=== PATIENT | female | born 1955 | race Caucasian/White ===

== ENCOUNTER 2018-09-21 10:11 | Day surgery (SDC) | payer OTHER ==
[2018-09-20 18:09] VITALS: BMI 33.0
--- NOTE | 2018-09-21 09:44 | HP ---
History & Physical Update - History History: No Change - Physical Physical: No Change - Assessment Assessment: No Change - Plan Plan: No Change (Left parotid mass/ tumor , for left parotidectomy, facial nerve monitoring, and dissection/)
--- NOTE | 2018-09-21 09:50 | HP ---
Satellite [facility] - Chief Complaint Chief Complaint: Left parotid mass for over one year. History Source: Patient Limitations to Obtaining History: No Limitations - Past Medical History Allergies/Adverse Reactions: Allergies Allergy/AdvReac Type Severity Reaction Status Date / Time aspirin Allergy Severe Verified 09/20/18 18:10 ketorolac [From Toradol] Allergy Severe Verified 09/20/18 18:11 - Current Medications Current Medications: Home Medications Medication Instructions Recorded Atorvastatin Ca [Lipitor] 40 mg PO DAILY 09/20/18 Cyclobenzaprine HCl 10 mg PO BID 09/20/18 Ezetimibe 10 mg PO DAILY 09/20/18 Folic Acid 1 mg PO DAILY 09/20/18 Levothyroxine Sodium 175 mcg PO DAILY 09/20/18 Losartan Potassium 100 mg PO DAILY 09/20/18 Lyrica 75 mg PO TID 09/20/18 Pantoprazole Sodium 40 mg PO DAILY 09/20/18 Prasugrel HCl 5 mg PO DAILY 09/20/18 Rosuvastatin Calcium 40 mg PO DAILY 09/20/18 Semaglutide [Ozempic] 5 mg SQ WEEKLY 09/20/18 Satellite Physical Exam - Physical Examination ENT: Other (2-3 cm. hard , mobile mass , in the region of the tail of the left parotid gland. CT scan shows a left protid mass , needle biopst suggestive of intraparotid ? lymph node. Patient wants it excised , has had it for about a year. Risks, of facial nerve injury , paralysis, gustatory sweating , salivary fistula and infection has been explained, many times. Consent obtained.) Satellite Impression/Plan - Impression/Plan Impression: Left parotid mass. Procedure : Left parotidectomy, dissection of the facial nerv. Operative Procedure: Left parotidectomy , dissection of the facial nerve. Date to be Performed: 09/21/18
[2018-09-21] MEDS ORDERED: ONDANSETRON 4 MG/2 ML VIAL IVPUSH PRN (11:23)
[2018-09-21] MEDS ORDERED: oxyCODONE HCL 5 MG TABLET PO PRN ×2 (11:23)
[2018-09-21] MEDS ORDERED: ceFAZolin SODIUM 1 GM VIAL IVPB ONE (12:40)
--- NOTE | 2018-09-21 15:26 | OP ---
Operative Note - Note: Operative Date: 09/21/18 Pre-Operative Diagnosis: Mass in left parotid gland , ? intraparotid lymph node. Operation: Left partial parotidectomy, dissection of the facial nerve , use of nerve monitor. Findings: Mass posterior to lower pole of the superficial lobe of the left parotid gland.. On frozen section , many lymphoid tissue.,? 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 Surgeon: Maria D Luis Railroad Operator: Felicity Moran Anesthesia: General Specimens Removed: Partial parotidectomy with mass posterior to laeft parotid gland. Estimated Blood Loss (mls): 10 Operative Report Dictated: Yes
[2018-09-21] MEDS ORDERED: ACETAMINOPHEN 1000 MG/100 ML VIAL (NON FORMULARY) IVPB PRN (15:58)
[2018-09-21] MEDS ORDERED: SEMAGLUTIDE 5 MG SQ SCH (16:00)
--- NOTE | 2018-09-21 16:09 | SURG ---
Surgery [employer] Note [employer]: Felicity Moran PA-C Date of Service: 09/21/18 Diagnosis: Mass in left parotid gland , ? intraparotid lymph node. Procedure: Left partial parotidectomy, dissection of the facial nerve , use of nerve monitor. I was present for the entirety of the operative procedure. For further detail, please refer to operative report. Visit type - Case Type Case Type: Scheduled - Emergency Emergency Visit: No - New patient This patient is new to me today: Yes Date on this admission: 09/21/18
[2018-09-21] MEDS: INSULIN SLIDING SCALE (NOVOLOG) 1 VIAL SQ SCH (19:15)
[2018-09-21] MEDS: LACTATED RINGERS SOLUTION 1,000 ML IV SCH (19:15)
[2018-09-21] MEDS: PREGABALIN 75 MG CAPSULE PO SCH (21:49)
[2018-09-21] MEDS: CYCLOBENZAPRINE HCL 10 MG TABLET (FP) PO SCH (21:49)
[2018-09-21] MEDS ORDERED: ROSUVASTATIN CA 40 MG TABLET PO SCH (22:00)
[2018-09-22] MEDS: LACTATED RINGERS SOLUTION 1,000 ML IV SCH (04:10)
[2018-09-22] MEDS ORDERED: LEVOTHYROXINE NA 125 MCG TABLET (FP) ONE (05:20)
[2018-09-22] MEDS ORDERED: LEVOTHYROXINE NA 50 MCG TABLET (FP) ONE (05:21)
[2018-09-22] MEDS: PREGABALIN 75 MG CAPSULE PO SCH ×2 (05:34→13:22)
[2018-09-22] MEDS: INSULIN SLIDING SCALE (NOVOLOG) 1 VIAL SQ SCH ×2 (06:01→11:23)
[2018-09-22] MEDS ORDERED: LEVOTHYROXINE 125 MCG, LEVOTHYROXINE 50 MCG PO SCH (07:00)
[2018-09-22 07:35] LABS: HEMATOCRIT 38.5 % (32.4-45.2); HEMOGLOBIN 12.7 GM/dL (10.7-15.3); MCH 31.3 pg (25.7-33.7); MCHC 33.1 g/dl (32.0-36.0); MEAN CELL VOLUME 94.6 fl (80-96); MEAN PLT VOLUME 10.5 fl (7.5-11.1); PLATELET COUNT 203 K/MM3 (134-434); RBC 4.07 M/mm3 (3.60-5.2); WHITE BLOOD COUNT 12.9 K/mm3 (4.0-10.0)
[2018-09-22] MEDS: oxyCODONE HCL 5 MG TABLET PO PRN ×2 (07:58→12:00)
[2018-09-22] MEDS: CYCLOBENZAPRINE HCL 10 MG TABLET (FP) PO SCH (09:31)
[2018-09-22] MEDS ORDERED: PANTOPRAZOLE 40 MG TABLET (FP) PO SCH (10:00)
[2018-09-22] MEDS ORDERED: LOSARTAN POTASSIUM 50 MG TABLET (FP) PO SCH (10:00)
[2018-09-22] MEDS ORDERED: FOLIC ACID 1 MG TABLET (FP) PO SCH (10:00)
[2018-09-22] MEDS ORDERED: LEVOTHYROXINE SODIUM 175 MCG PO SCH (10:00)
[2018-09-22] MEDS ORDERED: ATORVASTATIN CA 40 MG TABLET (FP) PO SCH (10:00)
[2018-09-22] MEDS ORDERED: PRASUGREL HCL 5 MG TAB PO SCH (10:00)
[2018-09-22] MEDS ORDERED: EZETIMIBE 10 MG TABLET (FP) PO SCH (10:00)
[2018-09-22 10:17] VITALS: BP 143/68; PULSE 77; TEMP 98
--- NOTE | 2018-09-22 11:26 | OP ---
DATE OF OPERATION: 09/21/2018 SEX: Female. AGE: [age] years old. 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 OPERATIVE PROCEDURE: Left partial parotidectomy, dissection of the facial nerve , use of nerve monitor, with frozen section. SURGEON: Gely Luis MD MANAGER CHILD: JAVID Jimenez ANESTHESIA: General anesthesia. OPERATIVE DESCRIPTION: This 63-year-old woman had a mass behind the angle of the mandible on the left side for about a couple of years. She was worked up, and needle biopsy of the lesion suggested this to be a lymph node. Patient also had a CAT scan that suggested that this mass was behind the inferior pole of the left parotid gland and beneath it. Patient insisted on getting the mass removed. Risks, benefits , and complications had been discussed with the patient. Consent obtained. Patient brought to the operating room. General anesthesia was administered. The Nerveana nerve monitoring device was used during the procedure. The appropriate leads were placed on the face. The left side of the face was painted and draped. Timeout was called. The patient was placed, with the back elevated in a 30-degree angle , neck extended, and the face turned towards the right. Incision was made starting in front of the tragus of the left ear, brought down around the pinna of the left ear, and then brought, anteriorly in a curvelinear fashion along the sternocleidomastoid muscle to about 2 fingerbreadths below the angle of the mandible and below the margin of the mandible. The incision was deepened through the skin and subcutaneous tissue. Posteriorly, the skin flap was raised beneath the deep fascia from the sternocleidomastoid muscle all the way anteriorly over the left parotid gland. All the tissues in front of the anterior border of the sternocleidomastoid muscle were removed. The cutaneous nerve, great auricular nerve, was identified and preserved all along its course and maintained intact. Dissection was then carried around the anterior border of the left sternocleidomastoid muscle wherein the facial nerve trunk was identified, superiorly, anterior to the posterior belly of the digastric muscle. There were , enlarged lobulated masses, what appeared to be enlarged lymph nodes, with some purulent material within it. This was behind, and deep to the posterior border of the left parotid gland. However, anteriorly, this remained attached to the parotid. Therefore, the facial nerve dissection was followed, preserving all the branches of the inferior trunk of the facial nerve. The cervical and the marginal mandibular branch of the facial nerve was followed all along its course and preserved throughout the procedure with appropriate response to stimulation of the nerve, using the nervana nerve monitor. On stimulation of the main trunk, the function of all the branches of the nerve was found to be intact. Hemostasis was achieved during the procedure using electrocautery, hemoclips as well, and the LigaSure. The specimen consisting of the superficial lobe of the inferior portion of the left parotid along, with the mass which was distinct from it, was sent to Pathology. On pathology, there were numerous lymphocytes with some nests of epithelial tissue which appeared benign. Further dissection was, therefore, not carried out. Hemostasis was satisfactory. A number 8 ELISEO drain was left into the wound, brought out through a stab wound in the posterior aspect of the posterior flap. The wound was irrigated. Hemostasis was satisfactory. The deep fascia and platysma were approximated with buried, interrupted 3-0 Vicryl sutures. Subcutaneous fat was also approximated with interrupted 3-0 Vicryl sutures and the skin approximated with continuous 4-0 Monocryl sutures in a running subcuticular fashion. The drain was anchored with a 2-0 Prolene. Estimated blood loss was less than 10 mL. Sponge count and instrument count were correct. Steri-Strips were applied across the incision, and bacitracin was applied over the edges. Patient tolerated the procedure well , was extubated, and facial nerve function was intact after extubation. Chanda [id number] MTDD
--- NOTE | 2018-09-22 13:41 | PN ---
Progress Note, Physician - Current Medication List Current Medications: Active Medications Acetaminophen (Ofirmev Injection -) 1,000 mg IVPB Q6H PRN PRN Reason: PAIN LEVEL 1-5 Last Admin: 09/21/18 16:00 Dose: 1,000 mg Cyclobenzaprine HCl (Flexeril -) 10 mg PO BID [facility] Last Admin: 09/22/18 09:31 Dose: 10 mg Ezetimibe (Zetia -) 10 mg PO DAILY [facility] Last Admin: 09/22/18 09:32 Dose: 10 mg Fentanyl (Sublimaze Injection -) 50 mcg IVPUSH [id number] PRN PRN Reason: PAIN-PACU ORDER X 4 DOSES ONLY Last Admin: 09/21/18 17:10 Dose: 50 mcg Folic Acid (Folic Acid -) 1 mg PO DAILY [facility] Last Admin: 09/22/18 09:31 Dose: 1 mg Lactated Ringer's (Lactated Ringers Solution) 1,000 mls @ 75 mls/hr IV ASDIR [facility] Last Admin: 09/22/18 04:10 Dose: 75 mls/hr Insulin Aspart (Novolog Vial Sliding Scale -) 1 vial SQ TIDAC [facility]; Protocol Last Admin: 09/22/18 11:23 Dose: Not Given Levothyroxine Sodium 125 mcg/ (Levothyroxine Sodium 50 mcg) 175 mcg PO DAILY@ 0700 [facility] Last Admin: 09/22/18 06:01 Dose: 175 mcg Losartan Potassium (Cozaar -) 100 mg PO DAILY [facility] Last Admin: 09/22/18 09:30 Dose: 100 mg Non-Formulary Medication (Semaglutide [Ozempic]) 5 mg SQ Q7D [facility] Ondansetron HCl (Zofran Injection) 4 mg IVPUSH Q6H PRN PRN Reason: NAUSEA AND/OR VOMITING Oxycodone HCl (Roxicodone -) 5 mg PO Q4H PRN PRN Reason: PAIN LEVEL 1-5 Oxycodone HCl (Roxicodone -) 10 mg PO Q4H PRN PRN Reason: PAIN LEVEL 6-10 Last Admin: 09/22/18 12:00 Dose: 10 mg Pantoprazole Sodium (Protonix -) 40 mg PO DAILY [facility] Last Admin: 09/22/18 09:36 Dose: 40 mg Prasugrel (Effient -) 5 mg PO DAILY [facility] Last Admin: 09/22/18 09:31 Dose: 5 mg Pregabalin (Lyrica -) 75 mg PO TID [facility] Last Admin: 09/22/18 13:22 Dose: 75 mg Rosuvastatin Calcium (Crestor -) 40 mg PO HS [facility] - Objective Vital Signs: Vital Signs Temperature 98 F 09/22/18 07:50 Pulse Rate 77 09/22/18 07:50 Respiratory Rate 20 09/22/18 07:50 Blood Pressure 143/68 09/22/18 07:50 O2 Sat by Pulse Oximetry (%) 95 09/21/18 22:22 Labs: CBC, BMP 09/22/18 06:00 Assessment/Plan Wound is clean, drain is removed. N No facial nerve paralysis, Able to purse her mouth.' Drain is removed. Follow up in the office.
--- NOTE | 2018-09-22 14:10 | PN ---
Progress Note, Physician Chief Complaint: s/p parotidectomy under general anesthesia History of Present Illness: post op day one - Current Medication List Current Medications: Active Medications Acetaminophen (Ofirmev Injection -) 1,000 mg IVPB Q6H PRN PRN Reason: PAIN LEVEL 1-5 Last Admin: 09/21/18 16:00 Dose: 1,000 mg Cyclobenzaprine HCl (Flexeril -) 10 mg PO BID [facility] Last Admin: 09/22/18 09:31 Dose: 10 mg Ezetimibe (Zetia -) 10 mg PO DAILY [facility] Last Admin: 09/22/18 09:32 Dose: 10 mg Fentanyl (Sublimaze Injection -) 50 mcg IVPUSH [id number] PRN PRN Reason: PAIN-PACU ORDER X 4 DOSES ONLY Last Admin: 09/21/18 17:10 Dose: 50 mcg Folic Acid (Folic Acid -) 1 mg PO DAILY [facility] Last Admin: 09/22/18 09:31 Dose: 1 mg Lactated Ringer's (Lactated Ringers Solution) 1,000 mls @ 75 mls/hr IV ASDIR [facility] Last Admin: 09/22/18 04:10 Dose: 75 mls/hr Insulin Aspart (Novolog Vial Sliding Scale -) 1 vial SQ TIDAC [facility]; Protocol Last Admin: 09/22/18 11:23 Dose: Not Given Levothyroxine Sodium 125 mcg/ (Levothyroxine Sodium 50 mcg) 175 mcg PO DAILY@ 0700 [facility] Last Admin: 09/22/18 06:01 Dose: 175 mcg Losartan Potassium (Cozaar -) 100 mg PO DAILY [facility] Last Admin: 09/22/18 09:30 Dose: 100 mg Non-Formulary Medication (Semaglutide [Ozempic]) 5 mg SQ Q7D [facility] Ondansetron HCl (Zofran Injection) 4 mg IVPUSH Q6H PRN PRN Reason: NAUSEA AND/OR VOMITING Oxycodone HCl (Roxicodone -) 5 mg PO Q4H PRN PRN Reason: PAIN LEVEL 1-5 Oxycodone HCl (Roxicodone -) 10 mg PO Q4H PRN PRN Reason: PAIN LEVEL 6-10 Last Admin: 09/22/18 12:00 Dose: 10 mg Pantoprazole Sodium (Protonix -) 40 mg PO DAILY [facility] Last Admin: 09/22/18 09:36 Dose: 40 mg Prasugrel (Effient -) 5 mg PO DAILY [facility] Last Admin: 09/22/18 09:31 Dose: 5 mg Pregabalin (Lyrica -) 75 mg PO TID [facility] Last Admin: 09/22/18 13:22 Dose: 75 mg Rosuvastatin Calcium (Crestor -) 40 mg PO [facility] - Objective Vital Signs: Vital Signs Temperature 98 F 09/22/18 07:50 Pulse Rate 77 09/22/18 07:50 Respiratory Rate 20 09/22/18 07:50 Blood Pressure 143/68 09/22/18 07:50 O2 Sat by Pulse Oximetry (%) 95 09/21/18 22:22 Constitutional: Yes: Well Nourished Cardiovascular: Yes: WNL Respiratory: Yes: WNL Gastrointestinal: Yes: WNL Labs: CBC, BMP 09/22/18 06:00 Assessment/Plan Patient pain controlled, no adverse anesthetic effects, dept of anesthesiology will sign off care at this time
[2018-09-22] MEDS ORDERED: ROSUVASTATIN CA 20 MG TABLET (FP) PO SCH (22:00)
--- NOTE | 2018-09-25 14:35 | PATH ---
Surgical Pathology Report Patient Name: KENYATTA SCHAFFER [facility]. Rec. #: [id number] /Age/Gender: 1955 (Age: 63) / F Account: [id number] Location: AMBULATORY SURG Taken: 09/21/2018 Received: 09/21/2018 Reported: 09/25/2018 Physicians: Gely Luis M.D. Specimen(s) Received LEFT INTRAPAROTID LYMPH NODE Clinical History Mass left parotid gland Intraoperative Consult Diagnosis Left intraparotid tissue, lymph node, touch prep: Lymphoepithelial lesion, favor benign. Nolberto Hunter M.D., 09/21/2018 Final Diagnosis INTRAPAROTID TISSUE,"LYMPH NODE", LEFT, PARTIAL PAROTIDECTOMY(FS): WARTHIN TUMOR. NEOPLASM MEASURES 1.2 CM (GROSS). NEOPLASM FOCALLY EXTENDS TO INKED SURGICAL MARGINS. Comment: Focal squamous metaplasia noted. No significant cytologic atypia identified. Findings discussed with Dr. Luis. Electronically Signed Amanda Agrawal M.D. Gross Description Received fresh labeled "left intraparotid tissue lymph node," is a 4.8 x 2.8 x 1.3 cm red-brown, unoriented portion of soft tissue. The specimen is inked blue and serially sectioned. Sectioning reveals a 1.2 x 1.0 x 0.6 cm red-brown nodule. Intraoperative consultation and touch preparation is performed on the nodule. The remaining tissue displays red-brown, lobulated parenchyma. The specimen is entirely and sequentially submitted in 7 cassettes as follows: [id number] nodule; 0-5-xctvpsyeb of specimen. /09/21/2018 [facility]09/21/2018
== END 2018-09-22 14:58 | disposition home or self-care (01) ==
LOC: JASUSAT 10:11 → J8W 17:48 → JASUSAT 09-22 14:58
PROVIDERS: ATTEND Specialist
PROC: 07B20ZX Excision of Left Neck Lymphatic, Open Approach, Diagnostic (ICD-10-PCS; 2018-09-21)
PROC: 0CB90ZZ Excision of Left Parotid Gland, Open Approach (ICD-10-PCS; principal; 2018-09-21 11:30)
DX: D11.0 Benign neoplasm of parotid gland (principal); I10 Essential (primary) hypertension; E11.9 Type 2 diabetes mellitus without complications; K21.9 Gastro-esophageal reflux disease without esophagitis; Z72.0 Tobacco use
CPT/HCPCS: 36415; 82962; 85027; 87070; 87205; 88307-TC; 88329; 94010; 94760; J0131

== ENCOUNTER 2018-12-06 19:11 | Inpatient (IN) | payer OTHER ==
[2018-12-06] MEDS ORDERED: ACETAMINOPHEN 1000 MG/100 ML VIAL (NON FORMULARY) IVPB ONE (19:49)
--- NOTE | 2018-12-06 19:49 | PDOC ---
Rapid Medical Evaluation Chief Complaint: Respiratory Time Seen by Provider: 12/06/18 19:40 Medical Evaluation: Allergies Allergy/AdvReac Type Severity Reaction Status Date / Time aspirin Allergy Severe Verified 09/21/18 11:11 ketorolac [From Toradol] Allergy Severe Verified 09/21/18 11:11 12/06/18 19:44 63 year old female with cough, fever/ chills, PE:patient alert ox3 . breath sounds clear PMHX: SLE, thyroidectomy, DM Today got vaccinated for shingles and pneumococcal. A: sepsis P: labs sepsis workup 12/06/18 19:49 Discharge Disposition - Diagnosis Sepsis Qualifiers: Sepsis type: sepsis due to unspecified organism Sepsis acute organ dysfunction status: unspecified Qualified Code(s): A41.9 - Sepsis, unspecified organism - Referrals - Patient Instructions - Post Discharge Activity
[2018-12-06] MEDS: SODIUM CHLORIDE 0.9% 1000 ML INFUS.BAG IV SCH (20:49)
--- NOTE | 2018-12-06 20:57 | PDOC ---
Attending Attestation - Resident Resident Name: Liya Gilbert - ED Attending Attestation I have performed the following: I have examined & evaluated the patient, The case was reviewed & discussed with the resident, I agree w/resident's findings & plan, Exceptions are as noted - HPI HPI: 12/06/18 20:54 63 F with h/o SLE, DM, HTN, presenting to ED with fevers and chills since last night. Pt states that she started rigoring last night. Daughter notes that she has also been confused. Pt denies any STILL/neck pain. Denies N/V/D/abdominal pain. Denies dysuria. Denies cough. Denies CP/SOB. - Physicial Exam PE: 12/06/18 20:55 GENERAL: Awake, alert, in no acute distress. HEAD: No signs of trauma EYES: PERRLA, EOMI, sclera anicteric, conjunctiva clear ENT: Auricles normal inspection, hearing grossly normal, nares patent, oropharynx clear without exudates. Moist mucosa NECK: Nontender, no stepoffs, Normal ROM, supple, no lymphadenopathy, JVD, or masses LUNGS: Breath sounds equal, clear to auscultation bilaterally. No wheezes, and no crackles HEART: Regular rate and rhythm, normal S1 and S2, no murmurs, rubs or gallops ABDOMEN: Soft, nontender, normoactive bowel sounds. No guarding, no rebound. No masses EXTREMITIES: Normal range of motion, no edema. No clubbing or cyanosis. No cords, erythema, or tenderness NEUROLOGICAL: Cranial nerves II through XII intact. 5/5 strength and sensation in all extremities, Normal speech, normal gait, normal cerebellar function SKIN: Warm, Dry, normal turgor, no rashes or lesions noted. - Critical Care Time Total Critical Care Time: 60 Critical Care Statement: The care of this patient involved high complexity decision making to prevent further life threatening deterioration of the patient 's condition and/or to evaluate & treat vital organ system(s) failure or risk of failure. - Medical Decision Making 12/06/18 20:56 63 F with fevers and confusion. Will evaluate for sepsis. Confusion likely 2/2 infection. Pt with no neuro deficits but will obtain head CT. - Labs, cultures - CXR, UA - CT head - IVF, tylenol
[2018-12-06] MEDS ORDERED: ACETAMINOPHEN INJECTION 100 ML IVPB ONE (21:03)
[2018-12-06 21:06] LABS: ARTERIAL BLD GAS O2 SATURATION 94.1 % (95-98); ARTERIAL BLOOD GAS BASE EXCESS -0.5 meq/l (-2-2); ARTERIAL BLOOD GAS PCO2 27.2 mmHg (35-45); ARTERIAL BLOOD GAS PO2 61.2 mmHg (80-100); CARBOXYHEMOGLOBIN 6.5 % (0-2)
--- NOTE | 2018-12-06 21:13 | PDOC ---
History of Present Illness - General Chief Complaint: Respiratory Stated Complaint: HALLUCINATIONS/FEVER Time Seen by Provider: 12/06/18 19:40 History Source: Patient Exam Limitations: No Limitations - History of Present Illness Initial Comments: Pt is a 63 yo F, with PMH of lupus, RA, HTN, HLD, L partoidectomy, L lung nodules removed (benign), and hypothyroidism (2/2 thyroidectomy), who is presenting with fever, AMS, and SOB since yesterday. Pt states she noticed she "felt warm" yesterday, and today had fever (Tmax 104), and some SOB. Pt is accompanied by her daughters, who state the pt has seem confused and off-balance , but deny any falls or LOC. Pt states since having her parotidectomy she often has trouble chewing and swallowing. Pt denies any headache, neck stiffness, vision changes, syncope, chest pain, palpitations, cough, nausea/vomiting, abdominal pain, urinary symptoms, diarrhea/constipation, or leg swelling. Allergies: NKDA PCP: Dr. Samuel Vidales Rheum: Dr. Luis Social: Pt smokes 1/2 ppd. Pt denies any alcohol or drug use. Pt denies any recent travel or sick contacts. Surgical: as above Family: no relevant history. 12/06/18 21:08 12/06/18 21:17 Past History - Travel Traveled outside of the country in the last 30 days: No Close contact w/someone who was outside of country & ill: No - Past Medical History Allergies/Adverse Reactions: Allergies Allergy/AdvReac Type Severity Reaction Status Date / Time aspirin Allergy Severe Verified 09/21/18 11:11 ketorolac [From Toradol] Allergy Severe Verified 09/21/18 11:11 Home Medications: Ambulatory Orders Atorvastatin Ca [Lipitor] 40 mg PO DAILY 09/20/18 Folic Acid 1 mg PO DAILY 09/20/18 Losartan Potassium 100 mg PO DAILY 09/20/18 Pantoprazole Sodium 40 mg PO DAILY 09/20/18 Prasugrel HCl 5 mg PO DAILY 09/20/18 Rosuvastatin Calcium 40 mg PO DAILY 09/20/18 Cholecalciferol (Vitamin D3) [Vitamin D3] 50,000 unit PO WEEKLY 12/07/18 Ezetimibe 10 mg PO DAILY 12/07/18 Levothyroxine Sodium 175 mcg PO DAILY 12/07/18 Pregabalin [Lyrica -] 75 mg PO TID 12/07/18 Anemia: No Asthma: No Cancer: No Cardiac Disorders: No CVA: No COPD: No CHF: No Dementia: No Diabetes: Yes GI Disorders: No Disorders: No HTN: Yes Hypercholesterolemia: No Liver Disease: No Seizures: No Thyroid Disease: No Other medical history: restless leg syndrome - Surgical History Abdominal Surgery: Yes (abd, hernia repair) Appendectomy: No Cardiac Surgery: No Cholecystectomy: Yes Lung Surgery: No Neurologic Surgery: No Orthopedic Surgery: No - Suicide/Smoking/Psychosocial Hx Smoking History: Current every day smoker Have you smoked in the past 12 months: Yes Number of Cigarettes Smoked Daily: 10 Information on smoking cessation initiated: No 'Breaking Loose' booklet given: 09/21/18 Hx Alcohol Use: No Drug/Substance Use Hx: No Substance Use Type: None Hx Substance Use Treatment: No Review of Systems - Review of Systems Able to Perform ROS?: Yes Is the patient limited Kyrgyz proficient: No Constitutional: Yes: Fever, Weight Stable. No: Chills, Diaphoresis, Loss of Appetite, Malaise, Weakness HEENTM: Yes: Difficulty Swallowing (since parotidectomy). No: Blurred Vision, Recent change in vision, Nose Congestion, Throat Pain, Throat Swelling Respiratory: Yes: Shortness of Breath, SOB at Rest. No: Cough, Orthopnea, Wheezing, Productive cough, Hemoptysis Cardiac (ROS): No: Chest Pain, Edema, Irregular Heart Rate, Lightheadedness, Palpitations, Syncope, Chest Tightness ABD/GI: No: Constipated, Diarrhea, Nausea, Poor Appetite, Poor Fluid Intake, Vomiting, Abdominal cramping : No: Burning, Dysuria, Frequency, Flank Pain, Pain, Urgency Musculoskeletal: No: Back Pain, Joint Pain, Muscle Pain, Muscle Weakness, Neck Pain Integumentary: No: Rash Psychiatric: No: Sleep Pattern Change, Change in Appetite Endocrine: No: Increased Urine, Change in Weight Hematologic/Lymphatic: No: Anemia, Blood Clots, Easy Bleeding, Easy Bruising All Other Systems: Reviewed and Negative *Physical Exam - Vital Signs Last Vital Signs Temp Pulse Resp BP Pulse Ox 103.8 F H 116 H 24 H 167/72 91 L 12/06/18 19:46 12/06/18 19:46 12/06/18 19:46 12/06/18 19:46 12/06/18 19:46 - Physical Exam Comments: Febrile, tachycardic, 91% on RA (improved to 95% on 2L NC). Pt appears SOB, but in no active distress. Obese body habitus. Pt alert, but oriented only to self (not pts baseline). Otherwise answers most questions appropriately. ink blender generally intact, muscular strength and sensation intact. Cerebellar exam WNL. No midline spinal tenderness, step-offs, or crepitus. Head normocephalic, atraumatic. Eyes PERRLA, EOMI. Oropharynx without erythema or exudates, no LAD b/l. No nasal congestion, hearing intact. Clear heart sounds, S1/S2, no JVD, b/l pedal edema, or heart murmur. Lung sounds diminished in L lobe/base. No retractions or crackles. No abdominal or CVA tenderness to palpation, no rebound, no guarding. Abdomen soft, non-distended, and with normoactive bowel sounds. Skin without jaundice or rash. 12/06/18 21:14 12/06/18 21:18 ED Treatment Course - LABORATORY CBC & Chemistry Diagram: 12/06/18 21:15 12/06/18 20:26 - ADDITIONAL ORDERS Additional order review: Laboratory Results 12/06/18 20:35 Anticoagulation Therapy No Result Required. O2 Delivery Device No Result Required. Oxygen Flow Rate No Result Required. Vent Mode No Result Required. Vent Rate No Result Required. Mechanical Rate No Result Required. Pressure Support Vent No Result Required. 12/06/18 20:35 RBC Cancelled MCV Cancelled MCHC Cancelled RDW Cancelled MPV Cancelled Neutrophils % Cancelled Lymphocytes % Cancelled Monocytes % Cancelled Eosinophils % Cancelled Basophils % Cancelled Medical Decision Making - Medical Decision Making Pt was seen at bedside, also will be seen by attending Dr. Muñiz. Pt presenting with AMS, fever, SOB. Will evaluate with sepsis w/u, chest x-ray, cultures ( blood and urine) and non-contrast CT head. Provided sepsis fluids and 1 g ofirmev for improvement of fever and hydration. Will continue to reassess pt and monitor for symptomatic improvement. ECG: sinus tachycardia, LAD, incomplete RBBB (HR 102, CT 144, QRS 92, QTc 437). No TWIs or significant ST segment changes. No prior ECG for comparison. 12/06/18 21:29 CBC: WBC 21 CMP generally WNL UA +blood, +protein, +bacteria Chest x-ray with b/l hazy infiltrates -- providing 1 g ceftriaxone and 500 mg IV azithromycin Pending CT head and chest. 12/06/18 21:[address] scan. Pending CT reads. Paged hospitalist team for admission. 12/06/18 23:32 Paged for admission x2 12/07/18 00:06 Pt endorsed to night team. 12/07/18 00:19 *DC/Admit/Observation/Transfer Diagnosis at time of Disposition: Hypoxia Leukocytosis Qualifiers: Leukocytosis type: unspecified Qualified Code(s): D72.829 - Elevated white blood cell count, unspecified Pneumonia Qualifiers: Pneumonia type: due to unspecified organism Laterality: bilateral Lung location : lower lobe of lung Qualified Code(s): J18.1 - Lobar pneumonia, unspecified organism - Discharge Dispostion Condition at time of disposition: Stable Decision to Admit order: Yes - Referrals Referrals: Samuel Vidales [Primary Care Provider] - - Patient Instructions - Post Discharge Activity
[2018-12-06 21:19] LABS: INR 1.05 (0.83-1.09); PROTHROMBIN TIME (PATIENT) 12.4 SEC (9.7-13.0)
[2018-12-06 21:21] LABS: ACTIVATED PTT 39.7 SECONDS (25.2-36.5)
[2018-12-06 21:22] LABS: EPI CELLS >36 /HPF (0-5/HPF); HYALINE CASTS 69 /lpf (0-8); URINE APPEARANCE CLOUDY; URINE BACTERIA 142.3 /hpf (NEGATIVE); URINE BILIRUBIN NEGATIVE (NEGATIVE); URINE COLOR DK YELLOW; URINE GLUCOSE (UA) NEGATIVE (NEGATIVE); URINE KETONE NEGATIVE (NEGATIVE); URINE LEUK ESTERASE NEGATIVE (NEGATIVE); URINE NITRITE NEGATIVE (NEGATIVE); URINE PROTEIN 4+ (NEGATIVE); URINE RBC 16 /hpf (0-4); URINE UROBILINOGEN 0.2 mg/dL (0.2-1.0)
[2018-12-06 21:25] LABS: BILIRUBIN,TOTAL 0.3 mg/dL (0.2-1); BLOOD UREA NITROGEN 15.5 mg/dL (7-18); CALCIUM 7.5 mg/dL (8.5-10.1); CREATININE 1.2 mg/dL (0.55-1.3); POTASSIUM 4.3 mmol/L (3.5-5.1); TOT PROT 6.1 g/dl (6.4-8.2)
[2018-12-06 21:31] LABS: BASO % 0.5 % (0-2.0); HEMOGLOBIN 14.1 GM/dL (10.7-15.3); LYMPH % 6.8 % (8-40); MCH 30.7 pg (25.7-33.7); MCHC 33.5 g/dl (32.0-36.0); MEAN CELL VOLUME 91.5 fl (80-96); MEAN PLT VOLUME 11.5 fl (7.5-11.1); MONO % 5.7 % (3.8-10.2); PLATELET COUNT 197 K/MM3 (134-434); RBC 4.59 M/mm3 (3.60-5.2); RDW 13.2 % (11.6-15.6); WHITE BLOOD COUNT 21.7 K/mm3 (4.0-10.0)
[2018-12-06] MEDS ORDERED: CEFTRIAXONE 1,000 MG in DEXTROSE 5%-WATER - 50 ML IVPB ONE (21:53)
[2018-12-06] MEDS ORDERED: AZITHROMYCIN IVPB 500 MG in DEXTROSE 5%-WATER - 250 ML IVPB ONE (21:53)
[2018-12-06] MEDS ORDERED: AZITHROMYCIN IVPB 500 MG/250 ML BAG IVPB ONE (22:06)
[2018-12-06] MEDS ORDERED: CEFTRIAXONE 1 GM/50 ML BAG ONE (22:06)
[2018-12-06 23:03] LABS: PLATELET ESTIMATE NORMAL
--- NOTE | 2018-12-07 00:57 | HP ---
Admitting History and Physical - Primary Care Physician PCP: Dr. Yoon - Admission Chief Complaint: cough, fever, chills History of Present Illness: 63 year old female with PMHx of RA, lupus, L partoidectomy (3 months ago), L lung nodules removed (benign), HTN, HLD, and hypothyroidism arrived to ED for fever, SOB, Chills since yesterday, had similar symptoms last Monday however resolved. Yesterday patient checked had temp of 103, and HR of 115 with SOB which brought her for further evaluation. As per ED notes patients daughter stated "pt has seem more confused and off-balance". Patient states since having her parotidectomy she often has trouble chewing and swallowing. No recent falls, LOC, headache, neck stiffness, vision changes, syncope, chest pain , palpitations, cough, nausea/vomiting, abdominal pain, urinary symptoms, diarrhea/constipation, or leg swelling. History Source: Patient Limitations to Obtaining History: No Limitations - Past Medical History Cardiovascular: Yes: HTN, Hyperlipdemia Pulmonary: Yes: Other (Left Lung nodule ( removed benign)) Rheumatology: Yes: Lupus, Rheumatoid Arthritis Endocrine: Yes: Hypothyroidism - Past Surgical History Additional Past Surgical History: Left partoidectomy, Left lung nodule removed (benign), thyroidectomy - Smoking History Smoking history: Current every day smoker Have you smoked in the past 12 months: Yes Aproximately how many cigarettes per day: 10 - Alcohol/Substance Use Hx Alcohol Use: No History of Substance Use: reports: None - Social History History of Recent Travel: No Home Medications - Allergies Allergies/Adverse Reactions: Allergies Allergy/AdvReac Type Severity Reaction Status Date / Time aspirin Allergy Severe Verified 09/21/18 11:11 ketorolac [From Toradol] Allergy Severe Verified 09/21/18 11:11 - Home Medications Home Medications: Ambulatory Orders Atorvastatin Ca [Lipitor] 40 mg PO DAILY 09/20/18 Folic Acid 1 mg PO DAILY 09/20/18 Losartan Potassium 100 mg PO DAILY 09/20/18 Pantoprazole Sodium 40 mg PO DAILY 09/20/18 Prasugrel HCl 5 mg PO DAILY 09/20/18 Rosuvastatin Calcium 40 mg PO DAILY 09/20/18 Cholecalciferol (Vitamin D3) [Vitamin D3] 50,000 unit PO WEEKLY 12/07/18 Ezetimibe 10 mg PO DAILY 09/13/19 Levothyroxine Sodium 175 mcg PO DAILY 12/07/18 Pregabalin [Lyrica -] 75 mg PO TID 12/07/18 Family Disease History - Family Disease History Family Disease History: Diabetes: Brother (Brain tumor, Breast Ca), CA: Brother Review of Systems - Review of Systems Constitutional: reports: Chills, Fever Eyes: reports: No Symptoms HENT: reports: Difficult Swallowing Neck: reports: No Symptoms Cardiovascular: reports: No Symptoms Respiratory: reports: SOB Gastrointestinal: reports: No Symptoms Genitourinary: reports: No Symptoms Musculoskeletal: reports: No Symptoms Integumentary: reports: No Symptoms Endocrine: reports: No Symptoms Hematology/Lymphatic: reports: No Symptoms Psychiatric: reports: No Symptoms Physical Examination Vital Signs: Vital Signs Temperature 103.8 F H 12/06/18 19:46 Pulse Rate 116 H 12/06/18 19:46 Respiratory Rate 24 H 12/06/18 19:46 Blood Pressure 167/72 12/06/18 19:46 O2 Sat by Pulse Oximetry (%) 91 L 12/06/18 19:46 Constitutional: Yes: Mild Distress, Obese Eyes: Yes: Conjunctiva Clear, EOM Intact HENT: Yes: Atraumatic, Normocephalic Neck: Yes: Supple, Trachea Midline Cardiovascular: Yes: Regular Rate and Rhythm Respiratory: Yes: Regular, CTA Bilaterally, Rales Gastrointestinal: Yes: Normal Bowel Sounds, Soft Musculoskeletal: Yes: WNL Extremities: Yes: WNL Edema: LUE: Trace, RUE: Trace Peripheral Pulses WNL: Yes Integumentary: Yes: WNL Neurological: Yes: Alert, Oriented Labs: CBC, BMP 12/06/18 21:15 12/06/18 20:26 Imaging - Results Cat Scan: Report Reviewed (CT head: negative CT chest : b/l lung nodule 1 cm left lobe, b/l lung consoliation) EKG: Report Reviewed (ECG: sinus tachycardia, no s/t changes) Problem List - Problems (1) Sepsis Code(s): A41.9 - SEPSIS, UNSPECIFIED ORGANISM (2) Pneumonia Code(s): J18.9 - PNEUMONIA, UNSPECIFIED ORGANISM Qualifiers: Pneumonia type: due to unspecified organism Laterality: bilateral Lung location: lower lobe of lung Qualified Code(s): J18.1 - Lobar pneumonia, unspecified organism (3) Rheumatoid arthritis Code(s): M06.9 - RHEUMATOID ARTHRITIS, UNSPECIFIED (4) Lupus (systemic lupus erythematosus) Code(s): M32.9 - SYSTEMIC LUPUS ERYTHEMATOSUS, UNSPECIFIED (5) HTN (hypertension) Code(s): I10 - ESSENTIAL (PRIMARY) HYPERTENSION (6) HLD (hyperlipidemia) Code(s): E78.5 - HYPERLIPIDEMIA, UNSPECIFIED (7) Hypothyroid Code(s): E03.9 - HYPOTHYROIDISM, UNSPECIFIED (8) Restless leg syndrome Code(s): G25.81 - RESTLESS LEGS SYNDROME (9) GERD (gastroesophageal reflux disease) Code(s): K21.9 - GASTRO-ESOPHAGEAL REFLUX DISEASE WITHOUT ESOPHAGITIS (10) H/O parotidectomy Code(s): Z90.49 - ACQUIRED ABSENCE OF OTHER SPECIFIED PARTS OF DIGESTIVE TRACT Assessment/Plan 63 year old female with PMHx of RA, lupus, L partoidectomy (3 months ago), L lung nodules removed (benign), HTN, HLD, GERD, restless leg syndrome and hypothyroidism arrived to ED for fever, SOB, Chills since yesterday, had similar symptoms last Monday however resolved. Yesterday patient checked had temp of 103, and HR of 115 with SOB which brought her for further evaluation. # Sepsis 2/2 pneumonia CXR: b/l infiltrate Ct chest: b/l lung nodule, 1 cm left lobe/ b/l lung consolidation EKG: ECG: sinus tachycardia, LAD, incomplete RBBB, No significant ST segment changes. UA +blood, +protein, +bacteria CBC: WBC 21 in Ed: given 1L NS, x1 ofirmev, given ceftriaxone and azithromycin x1 - continue with rocephin and azithromycin - continue with nebs - o2 via NC -tylenol q 4 prn -follow up ID in AM # HTN/ HLD s/p L partoidectomy ( 3 months ago ) -Atorvastatin Ca 40 mg PO DAILY - Losartan Potassium 100 mg PO DAILY - Rosuvastatin Calcium 40 mg PO DAILY - Ezetimibe 10 mg PO DAILY - follow up lipids - Prasugrel HCl 5 mg PO DAILY # GERD - Pantoprazole Sodium 40 mg PO DAILY #hypothrodism - Levothyroxine Sodium 175 mcg PO DAILY # Restless leg syndrome - Pregabalin 75 mg PO TID Visit type - Emergency Visit Emergency Visit: Yes Care time: The patient presented to the Emergency Department on the above date and was hospitalized for further evaluation of their emergent condition. - New Patient This patient is new to me today: Yes Date on this admission: 12/07/18 - Critical Care Critical Care patient: No
[2018-12-07] MEDS ORDERED: PATIENT'S OWN MEDICATION (NON-FORMULARY) (Cholecalciferol (Vitamin D3) [Vitamin D3] 50,000 PO SCH (01:30)
[2018-12-07] MEDS ORDERED: IPRATROPIUM BR 0.02% 0.5 MG/2.5 ML VIAL.NEB. NEB PRN ×2 (01:31→01:40)
[2018-12-07] MEDS ORDERED: ALBUTEROL SO4 0.083% IH SOL 2.5 MG/3 ML VIAL.NEB. NEB PRN (01:31)
[2018-12-07] MEDS ORDERED: PREGABALIN 50 MG CAPSULE ONE ×2 (05:42→21:11)
[2018-12-07] MEDS ORDERED: PREGABALIN 25 MG CAPSULE ONE ×2 (05:42→21:11)
[2018-12-07] MEDS ORDERED: PREGABALIN 75 MG CAPSULE PO SCH (06:00)
[2018-12-07] MEDS ORDERED: ACETAMINOPHEN 325 MG TABLET (FP) ONE (06:55)
[2018-12-07] MEDS: PREGABALIN 50 MG, PREGABALIN 25 MG PO SCH ×3 (07:00→22:19)
[2018-12-07] MEDS: ACETAMINOPHEN 325 MG TABLET (FP) PO PRN ×2 (07:00→23:48)
[2018-12-07] MEDS: LEVOTHYROXINE 125 MCG, LEVOTHYROXINE 50 MCG PO SCH (07:00)
[2018-12-07] MEDS ORDERED: CEFTRIAXONE 1 GM/50 ML BAG ONE ×2 (08:15→09:57)
[2018-12-07] MEDS ORDERED: AZITHROMYCIN IVPB 0 MG/0 ML BAG IVPB ONE (08:15)
[2018-12-07] MEDS: LOSARTAN POTASSIUM 50 MG TABLET (FP) PO SCH (09:07)
[2018-12-07] MEDS: EZETIMIBE 10 MG TABLET (FP) PO SCH (09:08)
[2018-12-07] MEDS: PANTOPRAZOLE 40 MG TABLET (FP) PO SCH (09:08)
[2018-12-07] MEDS: HEPARIN NA (PORCINE) 5,000 UNITS/ML 1ML VIAL SQ SCH ×2 (09:08→22:19)
[2018-12-07] MEDS: PRASUGREL HCL 5 MG TAB PO SCH (09:08)
[2018-12-07 09:43] LABS: HEMATOCRIT 36.2 % (32.4-45.2); HEMOGLOBIN 12.1 GM/dL (10.7-15.3); MCH 30.7 pg (25.7-33.7); MCHC 33.5 g/dl (32.0-36.0); MEAN CELL VOLUME 91.6 fl (80-96); MEAN PLT VOLUME 11.2 fl (7.5-11.1); PLATELET COUNT 163 K/MM3 (134-434); RBC 3.95 M/mm3 (3.60-5.2); RDW 13.3 % (11.6-15.6); WHITE BLOOD COUNT 12.4 K/mm3 (4.0-10.0)
[2018-12-07] MEDS ORDERED: CEFTRIAXONE 1 GM in DEXTROSE 5%-WATER - 50 ML IVPB ONE (09:46)
[2018-12-07 09:50] LABS: CHOLESTEROL 179 mg/dL (50-200); HDL CHOLESTEROL 67 mg/dL (40-60); TRIGLYCERIDES 98 mg/dL (0-150)
[2018-12-07 09:51] LABS: ALBUMIN 1.7 g/dl (3.4-5.0); BILIRUBIN,TOTAL 0.2 mg/dL (0.2-1); BLOOD UREA NITROGEN 14.6 mg/dL (7-18); CREATININE 1.1 mg/dL (0.55-1.3); POTASSIUM 3.7 mmol/L (3.5-5.1); TOT PROT 5.2 g/dl (6.4-8.2)
--- NOTE | 2018-12-07 09:55 | PN ---
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) followed by dr bridges admitted with fever vomiting on reports intermittent fevers with chills for last 3 weeks- off and on took aleve - didnot seek care no nausea, no abdominal pain no cough no diarrhea no dysuria went to [facility] yesterday am and had pneumonia and shingles vaccine later that day became confused and had fevers and chills and came to Ed no travel now alert and oriented fever to 103.[address] with increased patchy bilateral infiltrates, stable bibasilar pulmonary nodules (2018) and mediastinal adenopathy no cough no hemoptysis fever/abnormal chest ct s/p vaccinations yesterday-shingrix /pneumovax? history pulmonary nodule history of lupus/RA no immunosuppressive medications continue rocephin/zithromax for CAP and atypical pneumonia ?role of RA and Lupus in lung findings blood cultures legionella urinary antigen esr/crp anca quantiferon gold pulmonary evaluation alert and afebrile today Problem List - Problems (1) Fever Code(s): R50.9 - FEVER, UNSPECIFIED (2) Pneumonia Code(s): J18.9 - PNEUMONIA, UNSPECIFIED ORGANISM Qualifiers: Pneumonia type: due to unspecified organism Laterality: bilateral Lung location: lower lobe of lung Qualified Code(s): J18.1 - Lobar pneumonia, unspecified organism (3) Abnormal chest CT Code(s): R93.89 - ABNORMAL FINDINGS ON DX IMAGING OF OTH BODY STRUCTURES (4) Lupus (systemic lupus erythematosus) Code(s): M32.9 - SYSTEMIC LUPUS ERYTHEMATOSUS, UNSPECIFIED (5) Rheumatoid arthritis Code(s): M06.9 - RHEUMATOID ARTHRITIS, UNSPECIFIED
[2018-12-07] MEDS ORDERED: AZITHROMYCIN IVPB 500 MG/250 ML BAG IVPB ONE (09:56)
[2018-12-07 09:57] LABS: CALCIUM 6.9 mg/dL (8.5-10.1)
[2018-12-07] MEDS ORDERED: CEFTRIAXONE 1 GM in DEXTROSE 5%-WATER - 50 ML IVPB SCH (10:00)
[2018-12-07] MEDS ORDERED: PATIENT'S OWN MEDICATION (NON-FORMULARY) (Levothyroxine Sodium [Levothyroxine Sodium] 175 PO SCH (10:00)
[2018-12-07] MEDS ORDERED: PATIENT'S OWN MEDICATION (NON-FORMULARY) (Losartan Potassium [Losartan Potassium] 100 MG) PO SCH (10:00)
[2018-12-07] MEDS: AZITHROMYCIN IVPB 500 MG in DEXTROSE 5%-WATER - 250 ML IVPB SCH (10:57)
--- NOTE | 2018-12-07 12:07 | PN ---
Progress Note, Physician Chief Complaint: awake family bedside sob/on 02 tn events and notes reviewed - Current Medication List Current Medications: Active Medications Acetaminophen (Tylenol -) 650 mg PO Q4H PRN PRN Reason: PAIN OR FEVER Last Admin: 12/07/18 07:00 Dose: 650 mg Albuterol Sulfate (Ventolin 0.083% Nebulizer Soln -) 1 amp NEB RQID PRN PRN Reason: SHORT OF BREATH/WHEEZING Ezetimibe (Zetia -) 10 mg PO DAILY MATTHEW Last Admin: 12/07/18 09:08 Dose: 10 mg Heparin Sodium (Porcine) (Heparin -) 5,000 unit SQ BID MATTHEW Last Admin: 12/07/18 09:08 Dose: 5,000 unit Azithromycin 500 mg/ Dextrose 250 mls @ 250 mls/hr IVPB DAILY MATTHEW Last Admin: 12/07/18 10:57 Dose: 250 mls/hr Ceftriaxone Sodium 2 gm/ (Dextrose) 100 mls @ 200 mls/hr IVPB DAILY [facility]; Protocol Ipratropium [place] (Atrovent 0.02% Nebulizer -) 1 amp NEB QIDR PRN PRN Reason: WHEEZING Levothyroxine Sodium 125 mcg/ (Levothyroxine Sodium 50 mcg) 175 mcg PO ACBK MATTHEW Last Admin: 12/07/18 07:00 Dose: 175 mcg Losartan Potassium (Cozaar -) 100 mg PO DAILY [facility] Last Admin: 12/07/18 09:07 Dose: 100 mg Non-Formulary Medication (Cholecalciferol (Vitamin D3) [Vitamin D3]) 50,000 unit PO WEEKLY [facility] Pantoprazole Sodium (Protonix -) 40 mg PO DAILY [facility] Last Admin: 12/07/18 09:08 Dose: 40 mg Prasugrel (Effient -) 5 mg PO DAILY [facility] Last Admin: 12/07/18 09:08 Dose: 5 mg Pregabalin 50 mg/ Pregabalin (25 mg) 75 mg PO TID [facility] Last Admin: 12/07/18 07:00 Dose: 75 mg Rosuvastatin Calcium (Crestor -) 40 mg PO HS [facility] Sodium Chloride (Normal Saline -) 1,905 ml 30 ml/kg (1905 ml) IV ONCE [facility] Last Admin: 12/06/18 20:49 Dose: 1,905 ml - Objective Vital Signs: Vital Signs Temperature 98.7 F 12/07/18 07:00 Pulse Rate 74 12/07/18 07:00 Respiratory Rate 16 12/07/18 07:00 Blood Pressure 111/65 12/07/18 07:00 O2 Sat by Pulse Oximetry (%) 100 12/07/18 07:31 Constitutional: Yes: Mild Distress Cardiovascular: Yes: WNL Respiratory: Yes: Cough, Diminished, On Nasal O2 Gastrointestinal: Yes: Soft Genitourinary: Yes: WNL Musculoskeletal: Yes: Muscle Weakness Extremities: Yes: WNL Edema: No Peripheral Pulses WNL: Yes Integumentary: Yes: WNL Wound/Incision: Yes: Clean/Dry Neurological: Yes: WNL ...Motor Strength: WNL Psychiatric: Yes: WNL Labs: CBC, BMP 12/07/18 09:00 12/07/18 09:00 INR, PTT INR 1.05 (0.83-1.09) 12/06/18 20:35 Problem List - Problems (1) Abnormal chest CT Code(s): R93.89 - ABNORMAL FINDINGS ON DX IMAGING OF OTH BODY STRUCTURES (2) Fever Code(s): R50.9 - FEVER, UNSPECIFIED (3) GERD (gastroesophageal reflux disease) Code(s): K21.9 - GASTRO-ESOPHAGEAL REFLUX DISEASE WITHOUT ESOPHAGITIS (4) H/O parotidectomy Code(s): Z90.49 - ACQUIRED ABSENCE OF OTHER SPECIFIED PARTS OF DIGESTIVE TRACT (5) HLD (hyperlipidemia) Code(s): E78.5 - HYPERLIPIDEMIA, UNSPECIFIED (6) HTN (hypertension) Code(s): I10 - ESSENTIAL (PRIMARY) HYPERTENSION (7) Lupus (systemic lupus erythematosus) Code(s): M32.9 - SYSTEMIC LUPUS ERYTHEMATOSUS, UNSPECIFIED (8) Rheumatoid arthritis Code(s): M06.9 - RHEUMATOID ARTHRITIS, UNSPECIFIED Assessment/Plan nebs q6hrs 02 support iv abx ceftriaxone/azithromycin oob to chair pulm/rheumatology eval echo pending dvt prophylaxis proteinurea on losartan nephrology eval renal sono
--- NOTE | 2018-12-07 13:13 | CONS ---
DATE OF CONSULTATION: DATE OF DICTATION: 12/07/2018 REQUESTING PHYSICIAN: Abdi Yoon M.D. DICTATED BY: Betsy Fleming M.D. HISTORY OF PRESENT ILLNESS: This is a 63-year-old woman with a past medical history of lupus and rheumatoid arthritis. She has a history of as well of hypertension and restless leg syndrome, was followed by Dr. Vidales as an outpatient. She reports intermittent fever and chills for 3 weeks. She has been taking Advil. The fever has been happening occasionally, so she did not seek any medical care. Yesterday, she went to [facility] and had a pneumonia shot and a shingles shot. Following this, she went with her daughter to her daughter's gynecology appointment and while she was there, she started feeling bad and having shaking again. She went home and that evening developed fever and chills and her family brought her to the emergency room. She was apparently confused last night and was on arrival to the ER where she had fever of 103.8. She is currently awake and alert and has no other symptoms. She denies any history of cough. She had one day on of vomiting. She has not vomited since. She has had no diarrhea. She has no abdominal pain. She has no chest pain and otherwise feels well. There is no history of any travel. She has had no sick contacts and she is not on any immunosuppressive agents. PAST MEDICAL HISTORY: Her past medical history is notable for lupus that she states was diagnosed around 1999. She does not take any medicines. Rheumatoid arthritis, she does not take any medicines. She has a history of hypertension, restless leg syndrome, hyperlipidemia, hypothyroidism. PAST SURGICAL HISTORY: Her surgical history is notable for thyroidectomy. She had a nodule biopsied in her lung many years ago. 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 She has had hernia surgery, a cholecystectomy and she has had her ovaries removed. FAMILY HISTORY: The family history is notable for a brain tumor and breast cancer in a brother. SOCIAL HISTORY: She smokes 10 cigarettes a day, no history of alcohol or substance use. Currently her daughter lives with her. There are no sick contacts. She is originally from [place]. ALLERGIES: She is allergic to ASPIRIN, which gives her severe stomach cramps and KETOROLAC. MEDICATIONS: Her medicines at home include Atorvastatin, folic acid, losartan, pantoprazole, prasugrel, rosuvasatin, vitamin D, Zetia, levothyroxine and Lyrica. REVIEW OF SYSTEMS: Negative, except for the fevers and chills. PHYSICAL EXAMINATION: Vitals: On physical exam her maximum temperature was 103.8, current temperature is 98.7, pulse is 74, blood pressure 111/65, respiratory rate is 16. She is saturating 100% on 3 L. General: She is well appearing. HEENT: She is normocephalic. Her eyes are anicteric. Neck: Her neck is supple. Lungs: Lungs have diminished breath sounds at the bases. Heart: Heart is regular rate and rhythm. Abdomen: Soft, nontender. Extremities: Without edema. She has no adenopathy. LABORATORY DATA: White count on admission was 21.7, hemoglobin 14.1, platelets are 197. Chemistries: BUN is 15 and creatinine 1.2 with an AST of 44. Albumin is 2. Urinalysis has 4+ protein, 3+ blood and 10 white cells. She had a head CT done on admission given the confusion that showed mild volume loss with no acute intracranial pathology. She had a chest x-ray that showed prominent mediastinum with congestive infiltrative changes and she had a chest CT notable for diffuse ground glass opacification of the lung sanchez and the possibility of acute pneumonitis, stable bibasilar pulmonary nodules since September 13, mediastinal and bilateral hilar adenopathy. SUMMARY: In summary, this is a 63-year-old woman with fever, abnormal chest CT with no pulmonary symptoms, status post vaccinations yesterday. She got Shingrix, which in up to 25% of people, can give you fever, and she has a history of pulmonary nodules and a history of lupus and rheumatoid arthritis. She is not on any immunosuppressive treatments. RECOMMENDATIONS: I would continue the ceftriaxone and Zithromax for community-acquired pneumonia and atypical pneumonia. I am not sure of the role of RA and lupus in her lung findings. Her urinalysis is notable for protein and blood and is leukocyte esterase negative. I would follow up her blood cultures, check Legionella urinary antigen, sedimentation rate, CRP. I would get ANCA and QuantiFERON Gold. I would suggest Pulmonary evaluate her. Further recommendations to follow. BETSYChanda [id number] MTDDen
--- NOTE | 2018-12-07 14:03 | EKG ---
Test Reason : Blood Pressure : / mmHG Vent. Rate : 102 BPM Atrial Rate : 102 BPM P-R Int : 144 ms QRS Dur : 092 ms QT Int : 336 ms P-R-T Axes : 055 -44 035 degrees QTc Int : 437 ms SINUS TACHYCARDIA POSSIBLE LEFT ATRIAL ENLARGEMENT LEFT AXIS DEVIATION INCOMPLETE RIGHT BUNDLE BRANCH BLOCK ABNORMAL ECG Confirmed by RAY PRABHAKAR MD ([id number]) on 12/07/2018 2:03:21 PM Referred By: Confirmed By:RAY PRABHAKAR MD
--- NOTE | 2018-12-07 15:01 | ECHO ---
Name: KENYATTA SCHAFFER Exam:Adult Echocardiogram Study Date: 12/07/2018 01:42 PM Age: 63 yrs Reason For Study: r/o chf Height: 57 in Weight: 140 lb BSA: 1.5 m2 MMode/2D Measurements & Calculations RVDd: 1.9 cm Ao root diam: 2.9 cm IVSd: 0.76 cm LA dimension: 3.7 cm LVIDd: 5.3 cm ACS: 1.9 cm LVIDs: 3.2 cm LVPWd: 0.88 cm IVSs: 1.2 cm LVPWs: 1.3 cm EDV(Teich): 137.9 ml ESV(Teich): 41.6 ml Doppler Measurements & Calculations MV E max stanislav: 103.7 cm/sec Ao V2 max: 138.5 cm/sec MV A max stanislav: 76.3 cm/sec Ao max P.7 mmHg MV E/A: 1.4 Ao V2 mean: 91.1 cm/sec Ao mean P.8 mmHg Ao V2 VTI: 26.6 cm Med Peak E' Stanislav: 8.8 cm/sec Med E/e': 11.8 Lat Peak E' Stanislav: 8.2 cm/sec Lat E/e': 12.6 Left Ventricle The left ventricular size, thickness and function are normal. Ejection Fraction = 55-60%. The transmi tral spectral Doppler flow pattern is normal for age. Right Ventricle The right ventricle is normal in size and function. Atria Normal left and right atrial size and function. Mitral Valve The mitral valve is normal in structure and function. There is no mitral valve stenosis. There is tra ce mitral regurgitation. Tricuspid Valve The tricuspid valve is normal in structure and function. There is trace tricuspid regurgitation. Aortic Valve The aortic valve opens well. No hemodynamically significant valvular aortic stenosis. No aortic regur gitation is present. Pulmonic Valve The pulmonic valve is not well seen, but is grossly normal. There is no pulmonic valvular stenosis. T here is no pulmonic valvular regurgitation. Great Vessels The aortic root is normal size. Pericardium/Pleura There is no pericardial effusion. Interpretation Summary The left ventricular size, thickness and function are normal Ejection Fraction = 55-60%. The right ventricle is normal in size and function. No hemodynamically significant valvular aortic stenosis. There is no pericardial effusion. MD Gonzalez *Jennifer 12/07/2018 03:01 PM
--- NOTE | 2018-12-07 16:19 | PN ---
Progress Note (short form) - Note Progress Note: PULMONARY CONSULTATION DITATED12/07/18 IMP FEVER WORSENING DIFFUSE BILATERAL GROUND GLASS INFILTRATES LIKELY INFLAMMATORY , ? INFECTIOUS MEDIASTINAL,HILAR ADENOPATHY LIKELY REACTIVE INTERSTITIAL LUNG DISEASE SLE RA S/P THYROIDECTOMY S/P PARA-THYROIDECTOMY S/P L PAROTIDECTOMY H/O PULMONARY NODULES BENIGN SMOKER PLAN ABX PER ID CULTURES INHALED BRONCHODILATORS STEROIDS RHEUMATOLOGY EVALUATION F/U CHEST CT OUTPATIENT SEROLOGY KENYATTA,RF,C-ANCA,JOY LEVEL SMOKING CESSATION COUNSELED DR WEAVER Problem List - Problems (1) Abnormal chest CT Code(s): R93.89 - ABNORMAL FINDINGS ON DX IMAGING OF OTH BODY STRUCTURES (2) Fever Code(s): R50.9 - FEVER, UNSPECIFIED (3) GERD (gastroesophageal reflux disease) Code(s): K21.9 - GASTRO-ESOPHAGEAL REFLUX DISEASE WITHOUT ESOPHAGITIS (4) H/O parotidectomy Code(s): Z90.49 - ACQUIRED ABSENCE OF OTHER SPECIFIED PARTS OF DIGESTIVE TRACT (5) HLD (hyperlipidemia) Code(s): E78.5 - HYPERLIPIDEMIA, UNSPECIFIED (6) HTN (hypertension) Code(s): I10 - ESSENTIAL (PRIMARY) HYPERTENSION (7) Hypothyroid Code(s): E03.9 - HYPOTHYROIDISM, UNSPECIFIED (8) Lupus (systemic lupus erythematosus) Code(s): M32.9 - SYSTEMIC LUPUS ERYTHEMATOSUS, UNSPECIFIED (9) Pneumonia Code(s): J18.9 - PNEUMONIA, UNSPECIFIED ORGANISM Qualifiers: Pneumonia type: due to unspecified organism Laterality: bilateral Lung location: lower lobe of lung Qualified Code(s): J18.1 - Lobar pneumonia, unspecified organism (10) Rheumatoid arthritis Code(s): M06.9 - RHEUMATOID ARTHRITIS, UNSPECIFIED
[2018-12-07 17:39] VITALS: BMI 36.1
--- NOTE | 2018-12-07 17:52 | CONSULT ---
Consult Consult Specialty:: Rheumatology - History of Present Illness History of Present Illness: 63 y/o female with PMH of HTN, HLD, L partoidectomy, L lung nodules removed ( benign), and hypothyroidism (2/2 thyroidectomy), questionable history of lupus and s/p Shingrix vaccination one day prior to admission, Admitted with fever, and SOB. Questionable lupus. I saw the patient in my office from 04/23/02 to 06/19/09 and again in 2012.. 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 There were subepithelial, mesangial and rare subendothelial immune deposits .. Laboratory work-up revealed KENYATTA 1:80 and other serology was negative (anti-DNA ds, anti-Sm, anti-INSPECTOR TOOL, anti-cardiolipin antibodies, RPR and rheumatoid factor) and complement was normal. She had an episode of inflammatory arthritis in 2002 that resolved spontaneously. In 2003 she had elevation of liver enzymes a liver biopsy (07/16/03) was diagnosed with chronic hepatitis stage 2 with moderate activity. On 01/31/11 she had a wedge biopsy of the left lung. It was reports with severe respiratory bronchiolitis, smoking related interstitial fibrosis and benign intraparenchymal lymph nodes with reactive changes. There was no evidence of lymphoma. Work-up from 01/24/13 revealed KENYATTA 1:640 with a speckled pattern, and anti-DNA ds 6. Anti-Sm, anti-INSPECTOR TOOL, anti-mitochondrial and anti-smooth muscle antibodies were all negative. Complement was normal (C3: 147 and C4 31). Urinalysis leukocyte esterase 1+, protein trace and blood negative. At the present time the patient reports she has had SOB for a long period of time,slightly progressive. She cannot walk more than 1 block without stopping. She reports pain in shoulders, wrists and knees related to activity. She has not have follow up with a director index for a long period of time and she is not sanya followed by nephrology. In the present admission laboratory work-up revealed creatinine of 1.1, liver function tests were normal and urinalysis had protein 4+ and blood 2+. CT scan of the chest reported with diffuse groundglass opacification, most pronounced within the RUL. Stable pulmonary nodules since 2018. Mediastinal and bilateral hilar adenopathy. - History Source History Provided By: Patient, Medical Record - Past Medical History Cardio/Vascular: Yes: HTN, Hyperlipdemia Pulmonary: Yes: Other (Left Lung nodule ( removed benign)) Rheumatology: Yes: Lupus, Rheumatoid Arthritis Endocrine: Yes: Hypothyroidism - Alcohol/Substance Use Hx Alcohol Use: No History of Substance Use: reports: None - Smoking History Smoking history: Current every day smoker Have you smoked in the past 12 months: Yes Aproximately how many cigarettes per day: 10 - Social History History of Recent Travel: No Home Medications - Allergies Allergies/Adverse Reactions: Allergies Allergy/AdvReac Type Severity Reaction Status Date / Time aspirin Allergy Severe Verified 09/21/18 11:11 ketorolac [From Toradol] Allergy Severe Verified 09/21/18 11:11 - Home Medications Home Medications: Ambulatory Orders Atorvastatin Ca [Lipitor] 40 mg PO DAILY 09/20/18 Folic Acid 1 mg PO DAILY 09/20/18 Losartan Potassium 100 mg PO DAILY 09/20/18 Pantoprazole Sodium 40 mg PO DAILY 09/20/18 Prasugrel HCl 5 mg PO DAILY 09/20/18 Rosuvastatin Calcium 40 mg PO DAILY 09/20/18 Cholecalciferol (Vitamin D3) [Vitamin D3] 50,000 unit PO WEEKLY 12/07/18 Ezetimibe 10 mg PO DAILY 12/07/18 Levothyroxine Sodium 175 mcg PO DAILY 12/07/18 Pregabalin [Lyrica -] 75 mg PO TID 12/07/18 Family Disease History - Family Disease History Family Disease History: Diabetes: Brother (Brain tumor, Breast Ca), CA: Brother Review of Systems - Review of Systems Constitutional: reports: Malaise Eyes: reports: No Symptoms HENT: reports: No Symptoms Neck: reports: No Symptoms Cardiovascular: reports: Shortness of Breath Respiratory: reports: SOB Musculoskeletal: reports: Other (See HPI) Physical Exam Vital Signs: Vital Signs Temperature 98.1 F 12/07/18 17:08 Pulse Rate 80 12/07/18 17:08 Respiratory Rate 18 12/07/18 17:08 Blood Pressure 145/71 12/07/18 17:08 O2 Sat by Pulse Oximetry (%) 94 L 12/07/18 17:08 Constitutional: Yes: Mild Distress Eyes: Yes: WNL HENT: Yes: WNL Cardiovascular: Yes: WNL Respiratory: Yes: Other (Few crackles in LLL) Musculoskeletal: Yes: Other (Tenderness in both shoulders, mainly over the grater tuberosity on extension of the joint suggestive of rotator cuff tendonitis There was no tenderness or swelling in wrists or hands or stigmata of chronic arthritis. Both knees ere tender and swollen.) Labs: CBC, BMP 12/07/18 09:00 12/07/18 09:00 Problem List - Problems (1) Connective tissue disease Assessment/Plan: The patient does not have rheumatoid arthritis and is unlikely that she has lupus. She has interstitial lung disase, hispoty of membranous glomerulonephritis with positive immunofluoresence and hiostrory of autoimmune hepatitis. History of KENYATTA positive and anti-DNA positive on one occasion at low titer. Other serology and complement were normal. Based on the kidney biopsy it is unlikely that she has ANCA vasculitis. Etiology to be determined. Plan: I will requestt serology and complement. Code(s): M35.9 - SYSTEMIC INVOLVEMENT OF CONNECTIVE TISSUE, UNSPECIFIED (2) Rotator cuff tendonitis Assessment/Plan: Probable bilateral rotator cuff tendonitis. She does not have systemic inflammatory arthritis. Code(s): M75.80 - OTHER SHOULDER LESIONS, UNSPECIFIED SHOULDER (3) Osteoarthritis of knees, bilateral Assessment/Plan: Probable bilateral osteoarthritis,. Code(s): M17.0 - BILATERAL PRIMARY OSTEOARTHRITIS OF KNEE
--- NOTE | 2018-12-07 18:12 | CONS ---
DATE OF CONSULTATION: 12/07/2018 PULMONARY CONSULTATION REFERRING PHYSICIAN: Abdi Yoon M.D. HISTORY OF PRESENT ILLNESS: The patient is a 63-year-old female with past medical history of rheumatoid arthritis, lupus, history of left parotid endarterectomy 3 months ago, lung nodule removed benign, hypertension, hyperlipidemia status post thyroidectomy, parathyroidectomy ,hypothyroidism, admitted to [facility] with complaints of fever, chills, shortness of breath. Patient states she started developing chills and then the fevers for the past couple of weeks. She denied any chest pain, nausea, vomiting, diaphoresis. States she does not take any medication. Yesterday she started developing fevers and chills up to 103 at which time she presented to the emergency room. In the ER, she underwent a CT scan of the chest which reveals extensive bilateral infiltrates. She was evaluated by infectious disease and placed on antibiotic therapy. The patient has a cough which is nonproductive, denies any dyspnea on exertion of significance, any shortness of breath at rest. Denies hemoptysis, denies any weight loss or night sweats. She has a history of tobacco use and and is still smoking. There is no history of occupational exposure to chemicals or fumes. As stated before she has a history of SLE and rheumatoid and is going to be followed up by a drug safety specialist. PAST MEDICAL HISTORY: Again includes rheumatoid, lupus, left parotid endarterectomy, lung nodule, hypertension, hyperlipidemia, hypothyroidism, history of thyroidectomy. SOCIAL HISTORY: History of tobacco use. No occupational exposures. CURRENT MEDICATIONS: Include vitamin D, Tylenol, Cozaar, Zithromax, ceftriaxone , heparin, NicoDerm patch, albuterol, Zetia, Atrovent solution, normal saline, Crestor, Effient, Protonix, and Synthroid. PHYSICAL EXAMINATION: General: The patient is a well-developed, well-nourished female, currently awake, alert, in no acute distress. Vital Signs: O2 saturation is 97% on room air. Blood pressure 143/100, respiratory rate 18, temperature 98.1, T-max is 103.8. HEENT: Normocephalic, atraumatic. Neck: Supple. Heart: Regular S1, S2. Chest: Bibasilar crackles. Diminished breath sounds bilaterally. No wheezes or rhonchi. Abdomen: Soft, bowel sounds positive. Extremities: No cyanosis, edema. LABORATORY: WBC 12.4, initially was 21.7, hemoglobin 12.1, hematocrit 36.2, platelet count of 163,000. Blood gas: pH 7.50, pCO2 of 27, pO2 of 61, bicarbonate 21, saturation 94.1 on room air. BUN is 14.6, creatinine 1.6, calcium is 6.9. Troponin 0.07. Chest CT: Extensive bilateral ground glass infiltrates, mediastinal and hilar adenopathy. UA: 4+ protein, 3+ heme. IMPRESSION: 1. Fever, etiology to be determined. 2. Diffuse bilateral ground glass infiltrate, likely inflammatory, cannot rule out infectious process. 3. Interstitial lung disease. 4. Mediastinal hilar adenopathy again likely reactive. 5. Systemic lupus erythematosus. 6. Rheumatoid arthritis. 7. Status post thyroidectomy. 8. Status post left parathyroidectomy. 9. History of pulmonary nodules, status post resection, benign. 10. Smoker. PLAN: Antibiotics as per Infectious Disease. Obtain cultures. Inhaled bronchodilators. Supplemental O2. Steroids. Rheumatology evaluation. Obtain followup chest CT as outpatient. Obtain serology, KENYATTA, rheumatoid factor, cANCA , JOY level. Smoking cessation counseled. PACO WEAVER M.D. MARLENI/[id number] MTDD
[2018-12-07] MEDS ORDERED: ATORVASTATIN CA 40 MG TABLET (FP) PO SCH (22:00)
[2018-12-07] MEDS: ROSUVASTATIN CA 20 MG TABLET (FP) PO SCH (22:19)
[2018-12-07] MEDS: NICOTINE 21 MG/24 HOURS TOPICAL PATCH TD SCH (22:28)
[2018-12-07] MEDS: SODIUM CHLORIDE 0.9% 1000 ML INFUS.BAG IV SCH (22:28)
[2018-12-07] MEDS: methylPREDNISolone NA SUCC 40 MG/1 ML VIAL IVPUSH SCH (23:37)
[2018-12-07] MEDS: MELATONIN 5 MG TABLETS PO PRN (23:48)
[2018-12-08] MEDS: methylPREDNISolone NA SUCC 40 MG/1 ML VIAL IVPUSH SCH ×4 (04:10→17:24)
[2018-12-08] MEDS ORDERED: LEVOTHYROXINE NA 50 MCG TABLET (FP) ONE (05:46)
[2018-12-08] MEDS ORDERED: PREGABALIN 50 MG CAPSULE ONE ×3 (05:46→20:52)
[2018-12-08] MEDS ORDERED: LEVOTHYROXINE NA 125 MCG TABLET (FP) ONE (05:46)
[2018-12-08] MEDS ORDERED: PREGABALIN 25 MG CAPSULE ONE ×3 (05:46→20:53)
[2018-12-08] MEDS: PREGABALIN 50 MG, PREGABALIN 25 MG PO SCH ×3 (05:48→21:35)
[2018-12-08] MEDS: ACETAMINOPHEN 325 MG TABLET (FP) PO PRN ×2 (05:48→21:38)
[2018-12-08] MEDS: LEVOTHYROXINE 125 MCG, LEVOTHYROXINE 50 MCG PO SCH (06:00)
[2018-12-08] MEDS ORDERED: DEXTROSE 5%-WATER 100 ML IVPB ONE ×2 (10:21→11:48)
--- NOTE | 2018-12-08 10:36 | PN ---
Progress Note, Physician Chief Complaint: CAP History of Present Illness: NAD Breathing improved, denies SOB - Current Medication List Current Medications: Active Medications Acetaminophen (Tylenol -) 650 mg PO Q4H PRN PRN Reason: PAIN OR FEVER Last Admin: 12/08/18 05:48 Dose: 650 mg Albuterol Sulfate (Ventolin 0.083% Nebulizer Soln -) 1 amp NEB RQID PRN PRN Reason: SHORT OF BREATH/WHEEZING Ezetimibe (Zetia -) 10 mg PO DAILY [facility] Last Admin: 12/07/18 09:08 Dose: 10 mg Heparin Sodium (Porcine) (Heparin -) 5,000 unit SQ BID MATTHEW Last Admin: 12/07/18 22:19 Dose: 5,000 unit Azithromycin 500 mg/ Dextrose 250 mls @ 250 mls/hr IVPB DAILY [facility] Last Admin: 12/07/18 10:57 Dose: 250 mls/hr Ceftriaxone Sodium 2 gm/ (Dextrose) 100 mls @ 200 mls/hr IVPB DAILY [facility]; Protocol Ipratropium [place] (Atrovent 0.02% Nebulizer -) 1 amp NEB QIDR PRN PRN Reason: WHEEZING Levothyroxine Sodium 125 mcg/ (Levothyroxine Sodium 50 mcg) 175 mcg PO ACBK [facility] Last Admin: 12/08/18 06:00 Dose: 175 mcg Losartan Potassium (Cozaar -) 100 mg PO DAILY [facility] Last Admin: 12/07/18 09:07 Dose: 100 mg Melatonin (Melatonin) 5 mg PO HS PRN PRN Reason: INSOMNIA Last Admin: 12/07/18 23:48 Dose: 5 mg Methylprednisolone Sodium Succinate (Solu-Medrol -) 40 mg IVPUSH Q6H-IV [facility]THEW Last Admin: 12/08/18 04:10 Dose: 40 mg Nicotine (Nicoderm Patch -) 21 mg TD DAILY [facility] Last Admin: 12/07/18 22:28 Dose: Not Given Non-Formulary Medication (Cholecalciferol (Vitamin D3) [Vitamin D3]) 50,000 unit PO WEEKLY [facility] Pantoprazole Sodium (Protonix -) 40 mg PO DAILY [facility] Last Admin: 12/07/18 09:08 Dose: 40 mg Prasugrel (Effient -) 5 mg PO DAILY [facility] Last Admin: 12/07/18 09:08 Dose: 5 mg Pregabalin 50 mg/ Pregabalin (25 mg) 75 mg PO TID [facility] Last Admin: 12/08/18 05:48 Dose: 75 mg Rosuvastatin Calcium (Crestor -) 40 mg PO HS [facility] Last Admin: 12/07/18 22:19 Dose: 40 mg Sodium Chloride (Normal Saline -) 1,905 ml 30 ml/kg (1905 ml) IV ONCE [facility] Last Admin: 12/07/18 22:28 Dose: Not Given - Objective Vital Signs: Vital Signs Temperature 98.0 F 12/08/18 05:52 Pulse Rate 73 12/08/18 05:52 Respiratory Rate 20 12/08/18 05:52 Blood Pressure 125/66 12/08/18 05:52 O2 Sat by Pulse Oximetry (%) 98 12/07/18 21:00 Constitutional: Yes: Well Nourished, No Distress, Calm Cardiovascular: Yes: Regular Rate and Rhythm Respiratory: Yes: Regular, CTA Bilaterally Gastrointestinal: Yes: Normal Bowel Sounds, Soft Genitourinary: Yes: WNL Musculoskeletal: Yes: WNL Extremities: Yes: WNL Edema: No Peripheral Pulses WNL: Yes Neurological: Yes: Alert, Oriented Psychiatric: Yes: Alert, Oriented Labs: CBC, BMP 12/07/18 09:00 12/07/18 09:00 INR, PTT INR 1.05 (0.83-1.09) 12/06/18 20:35 Problem List - Problems (1) Connective tissue disease Assessment/Plan: -Seen by Rheumatology -workup in progress -Echo-normal LVEF at 55% Code(s): M35.9 - SYSTEMIC INVOLVEMENT OF CONNECTIVE TISSUE, UNSPECIFIED (2) Lupus (systemic lupus erythematosus) Assessment/Plan: -questionable as per Rheumatology -Seen by Rheumatology -ESR + CRP elevate -Work up in progress Code(s): M32.9 - SYSTEMIC LUPUS ERYTHEMATOSUS, UNSPECIFIED (3) Pneumonia Assessment/Plan: - Seen by Pulmonary -ID on baord -CXR + CAP -On IV rocephin+ Azithro -Medrol IVP Q6h-->decrease to medrol Q8H -Bronchodilators -Nasal O2 prn to keep Spo2>90% -Legionella Ag (-) -Pre and post ambulatory SpO2 Code(s): J18.9 - PNEUMONIA, UNSPECIFIED ORGANISM Qualifiers: Pneumonia type: due to unspecified organism Laterality: bilateral Lung location: lower lobe of lung Qualified Code(s): J18.1 - Lobar pneumonia, unspecified organism (4) Interstitial lung disease Assessment/Plan: -Seen by pulmonary and rheumatology -Chest:1. Diffuse groundglass opacification of the lung sanchez, most pronounced within the right upper lobe. The possibility of acute pneumonitis and/or a more chronic inflammatory/infectious process should be clinically considered. 2. Stable bibasilar pulmonary nodules since 09/13/2017. 3. Mediastinal and bilateral hilar lymphadenopathy. Clinical correlation and follow-up recommended. Please see above discussion. 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 Code(s): R80.9 - PROTEINURIA, UNSPECIFIED (6) Elevated troponin Assessment/Plan: -repeat trop today -denies chest pain -likely 2/2 to acute infection Code(s): R74.8 - ABNORMAL LEVELS OF OTHER SERUM ENZYMES Assessment/Plan dvt ppx GI ppx Self ambulatory
[2018-12-08] MEDS: CEFTRIAXONE 2 GM in DEXTROSE 5%-WATER 100 ML IVPB SCH (10:59)
[2018-12-08] MEDS: LOSARTAN POTASSIUM 50 MG TABLET (FP) PO SCH (11:00)
[2018-12-08] MEDS: NICOTINE 21 MG/24 HOURS TOPICAL PATCH TD SCH (11:00)
[2018-12-08] MEDS: HEPARIN NA (PORCINE) 5,000 UNITS/ML 1ML VIAL SQ SCH ×2 (11:01→21:36)
[2018-12-08] MEDS: PANTOPRAZOLE 40 MG TABLET (FP) PO SCH (11:01)
[2018-12-08] MEDS: PRASUGREL HCL 5 MG TAB PO SCH (11:02)
--- NOTE | 2018-12-08 11:04 | CONSULT ---
Consult - text type - Consultation Consultation Note: Renal coverage for Dr. Hudson This is a 63 year old woman with history of suspected RA, membranous nephropathy , possible Lupus (+ KENYATTA), hypothyroidism who presented from 2 week history of chills and 1 day of fever and admitted for suspected PNA. Pt was never on immunosupporessive medications for her membranous nephropathy. She was following with Dr. Oliver but has not seen him in some time. Denies any flank pain, gross hematuria or dysuria. No skin rash, facial rash. No joint pain. Making urine w/o difficultly. No recent NSAID use. PMhx: as above Allergies: ASA, ketorolac Family hx: NC Social Hx: No T/A/D ROS: as per HPI, all other pertinent ros negative Home Medications Medication Instructions Recorded Atorvastatin Ca [Lipitor] 40 mg PO DAILY 09/20/18 Folic Acid 1 mg PO DAILY 09/20/18 Losartan Potassium 100 mg PO DAILY 09/20/18 Pantoprazole Sodium 40 mg PO DAILY 09/20/18 Prasugrel HCl 5 mg PO DAILY 09/20/18 Rosuvastatin Calcium 40 mg PO DAILY 09/20/18 Acetaminophen/Diphenhydramine 2 tab PO HS 12/07/18 [Tylenol Pm Ex-Strength Caplet] Cholecalciferol (Vitamin D3) 50,000 unit PO WEEKLY 12/07/18 [Vitamin D3] Ezetimibe 10 mg PO DAILY 12/07/18 Levothyroxine Sodium 175 mcg PO DAILY 12/07/18 Pregabalin [Lyrica -] 75 mg PO TID 12/07/18 Vital Signs Temperature 98.0 F 12/08/18 05:52 Pulse Rate 73 12/08/18 05:52 Respiratory Rate 20 12/08/18 05:52 Blood Pressure 125/66 12/08/18 05:52 O2 Sat by Pulse Oximetry (%) 98 12/07/18 21:00 Intake & Output 12/05/18 12/06/18 12/07/18 12/08/18 23:59 23:59 23:59 23:59 Intake Total 200 100 Balance 200 100 Weight 63.503 kg 75.659 kg NAD awake and alert RRR, no M/R Course BS soft NT/ND no bladder distension trace LE edema CBC, BMP 12/07/18 09:00 12/07/18 09:00 Current Medications Acetaminophen (Tylenol -) 650 mg PO Q4H PRN PRN Reason: PAIN OR FEVER Last Admin: 12/08/18 05:48 Dose: 650 mg Albuterol Sulfate (Ventolin 0.083% Nebulizer Soln -) 1 amp NEB RQID PRN PRN Reason: SHORT OF BREATH/WHEEZING Ezetimibe (Zetia -) 10 mg PO DAILY [facility] Last Admin: 12/07/18 09:08 Dose: 10 mg Heparin Sodium (Porcine) (Heparin -) 5,000 unit SQ BID MATTHEW Last Admin: 12/08/18 11:01 Dose: 5,000 unit Azithromycin 500 mg/ Dextrose 250 mls @ 250 mls/hr IVPB DAILY [facility] Last Admin: 12/07/18 10:57 Dose: 250 mls/hr Ceftriaxone Sodium 2 gm/ (Dextrose) 100 mls @ 200 mls/hr IVPB DAILY [facility]; Protocol Last Admin: 12/08/18 10:59 Dose: 200 mls/hr Ipratropium [place] (Atrovent 0.02% Nebulizer -) 1 amp NEB QIDR PRN PRN Reason: WHEEZING Levothyroxine Sodium 125 mcg/ (Levothyroxine Sodium 50 mcg) 175 mcg PO ACBK [facility] Last Admin: 12/08/18 06:00 Dose: 175 mcg Losartan Potassium (Cozaar -) 100 mg PO DAILY [facility] Last Admin: 12/08/18 11:00 Dose: 100 mg Melatonin (Melatonin) 5 mg PO HS PRN PRN Reason: INSOMNIA Last Admin: 12/07/18 23:48 Dose: 5 mg Methylprednisolone Sodium Succinate (Solu-Medrol -) 40 mg IVPUSH Q8H-IV [facility] Nicotine (Nicoderm Patch -) 21 mg TD DAILY [facility] Last Admin: 12/08/18 11:00 Dose: 21 mg Non-Formulary Medication (Cholecalciferol (Vitamin D3) [Vitamin D3]) 50,000 unit PO WEEKLY [facility] Pantoprazole Sodium (Protonix -) 40 mg PO DAILY [facility] Last Admin: 12/08/18 11:01 Dose: 40 mg Prasugrel (Effient -) 5 mg PO DAILY [facility] Last Admin: 12/08/18 11:02 Dose: 5 mg Pregabalin 50 mg/ Pregabalin (25 mg) 75 mg PO TID [facility] Last Admin: 09/14/19 05:48 Dose: 75 mg Rosuvastatin Calcium (Crestor -) 40 mg PO HS [facility] Last Admin: 12/07/18 22:19 Dose: 40 mg Sodium Chloride (Normal Saline -) 1,905 ml 30 ml/kg (1905 ml) IV ONCE [facility] Last Admin: 12/07/18 22:28 Dose: Not Given .63 year old woman with history of suspected RA, membranous nephropathy, possible Lupus (+ KENYATTA), hypothyrodism who presented from 2 week history of chills and 1 day of fever and admitted for suspected PNA. 1. Nephrotic range proteinuria with hx of membrenous nephropathy 2. Possible history of SLE 3. PNA/Sepsis 4. Leukocytosis despite history of membranous nephropathy pt has relatively well preserved eGFR agree with serologic evaluation as ordered by Rheum no acute need for immunosuppressive Tx continue Losartan 100mg daily continue empiric antibiotics as pt appears clinically improved will need close outpatient renal follow up with Dr. Oliver upon discharge Thank you John King DO
[2018-12-08] MEDS ORDERED: PT OWN MED DRAWER 7, Y5N ONE ×2 (11:05→12:59)
[2018-12-08 11:15] LABS: BASO % 0.3 % (0-2.0); EOS % 0.2 % (0-4.5); HEMATOCRIT 37.5 % (32.4-45.2); HEMOGLOBIN 12.4 GM/dL (10.7-15.3); LYMPH % 7.7 % (8-40); MCH 30.3 pg (25.7-33.7); MCHC 32.9 g/dl (32.0-36.0); MEAN CELL VOLUME 92.1 fl (80-96); MEAN PLT VOLUME 11.7 fl (7.5-11.1); MONO % 1.7 % (3.8-10.2); NEUT % 90.1 % (42.8-82.8); PLATELET COUNT 189 K/MM3 (134-434); RBC 4.08 M/mm3 (3.60-5.2); RDW 13.4 % (11.6-15.6); WHITE BLOOD COUNT 8.5 K/mm3 (4.0-10.0)
--- NOTE | 2018-12-08 11:46 | PN ---
Progress Note (short form) - Note Progress Note: NAD on 2 L NC O2. Breathing feels a little better today. No CP. No hemoptysis. Intake & Output 12/05/18 12/06/18 12/07/18 12/08/18 23:59 23:59 23:59 23:59 Intake Total 200 100 Balance 200 100 Weight 140 lb 166 lb 12.8 oz Last Vital Signs Temp Pulse Resp BP Pulse Ox 98.0 F 73 20 125/66 98 12/08/18 05:52 12/08/18 05:52 12/08/18 05:52 12/08/18 05:52 12/07/18 21:00 Active Medications Acetaminophen (Tylenol -) 650 mg PO Q4H PRN PRN Reason: PAIN OR FEVER Last Admin: 12/08/18 05:48 Dose: 650 mg Albuterol Sulfate (Ventolin 0.083% Nebulizer Soln -) 1 amp NEB RQID PRN PRN Reason: SHORT OF BREATH/WHEEZING Ezetimibe (Zetia -) 10 mg PO DAILY [facility] Last Admin: 12/07/18 09:08 Dose: 10 mg Heparin Sodium (Porcine) (Heparin -) 5,000 unit SQ BID [facility] Last Admin: 12/08/18 11:01 Dose: 5,000 unit Azithromycin 500 mg/ Dextrose 250 mls @ 250 mls/hr IVPB DAILY [facility] Last Admin: 12/07/18 10:57 Dose: 250 mls/hr Ceftriaxone Sodium 2 gm/ (Dextrose) 100 mls @ 200 mls/hr IVPB DAILY [facility]; Protocol Last Admin: 12/08/18 10:59 Dose: 200 mls/hr Ipratropium [place] (Atrovent 0.02% Nebulizer -) 1 amp NEB QIDR PRN PRN Reason: WHEEZING Levothyroxine Sodium 125 mcg/ (Levothyroxine Sodium 50 mcg) 175 mcg PO ACBK [facility] Last Admin: 12/08/18 06:00 Dose: 175 mcg Losartan Potassium (Cozaar -) 100 mg PO DAILY [facility] Last Admin: 12/08/18 11:00 Dose: 100 mg Melatonin (Melatonin) 5 mg PO HS PRN PRN Reason: INSOMNIA Last Admin: 12/07/18 23:48 Dose: 5 mg Methylprednisolone Sodium Succinate (Solu-Medrol -) 40 mg IVPUSH Q8H-IV [facility] Last Admin: 12/08/18 11:06 Dose: Not Given Nicotine (Nicoderm Patch -) 21 mg TD DAILY [facility] Last Admin: 12/08/18 11:00 Dose: 21 mg Non-Formulary Medication (Cholecalciferol (Vitamin D3) [Vitamin D3]) 50,000 unit PO WEEKLY [facility] Pantoprazole Sodium (Protonix -) 40 mg PO DAILY [facility] Last Admin: 12/08/18 11:01 Dose: 40 mg Prasugrel (Effient -) 5 mg PO DAILY [facility] Last Admin: 12/08/18 11:02 Dose: 5 mg Pregabalin 50 mg/ Pregabalin (25 mg) 75 mg PO TID [facility] Last Admin: 12/08/18 05:48 Dose: 75 mg Rosuvastatin Calcium (Crestor -) 40 mg PO HS [facility] Last Admin: 12/07/18 22:19 Dose: 40 mg Sodium Chloride (Normal Saline -) 1,905 ml 30 ml/kg (1905 ml) IV ONCE [facility] Last Admin: 12/07/18 22:28 Dose: Not Given Constitutional: Yes: No Distress Cardiovascular: Yes: Regular Rate and Rhythm Respiratory: Yes: fine bilateral rhonchi / rales Gastrointestinal: Yes: Normal Bowel Sounds, Soft Genitourinary: Yes: WNL Musculoskeletal: Yes: WNL Extremities: Yes: WNL Edema: No Peripheral Pulses WNL: Yes Neurological: Yes: Alert, Oriented Psychiatric: Yes: Alert, Oriented Labs: Laboratory Results - last 24 hr 12/08/18 12/08/18 12/08/18 07:00 07:00 07:00 WBC 8.5 RBC 4.08 Hgb 12.4 Hct 37.5 MCV 92.1 MCH 30.3 MCHC 32.9 RDW 13.4 Plt Count 189 MPV 11.7 H Absolute Neuts (auto) 7.6 Neutrophils % 90.1 H Lymphocytes % 7.7 L Monocytes % 1.7 L Eosinophils % 0.2 D Basophils % 0.3 Nucleated RBC % 0 ESR 90 H C-Reactive Protein 13.1 H Problem List - Problems (1) Abnormal chest CT Code(s): R93.89 - ABNORMAL FINDINGS ON DX IMAGING OF OTH BODY STRUCTURES (2) Fever Code(s): R50.9 - FEVER, UNSPECIFIED (3) GERD (gastroesophageal reflux disease) Code(s): K21.9 - GASTRO-ESOPHAGEAL REFLUX DISEASE WITHOUT ESOPHAGITIS (4) H/O parotidectomy Code(s): Z90.49 - ACQUIRED ABSENCE OF OTHER SPECIFIED PARTS OF DIGESTIVE TRACT (5) HLD (hyperlipidemia) Code(s): E78.5 - HYPERLIPIDEMIA, UNSPECIFIED (6) HTN (hypertension) Code(s): I10 - ESSENTIAL (PRIMARY) HYPERTENSION (7) Hypothyroid Code(s): E03.9 - HYPOTHYROIDISM, UNSPECIFIED (8) Lupus (systemic lupus erythematosus) Code(s): M32.9 - SYSTEMIC LUPUS ERYTHEMATOSUS, UNSPECIFIED (9) Pneumonia Code(s): J18.9 - PNEUMONIA, UNSPECIFIED ORGANISM Qualifiers: Pneumonia type: due to unspecified organism Laterality: bilateral Lung location: lower lobe of lung Qualified Code(s): J18.1 - Lobar pneumonia, unspecified organism IMP FEVER WORSENING DIFFUSE BILATERAL GROUND GLASS INFILTRATES LIKELY INFLAMMATORY , ? INFECTIOUS MEDIASTINAL,HILAR ADENOPATHY LIKELY REACTIVE INTERSTITIAL LUNG DISEASE (?) SLE RA S/P THYROIDECTOMY S/P PARA-THYROIDECTOMY S/P L PAROTIDECTOMY H/O PULMONARY NODULES BENIGN SMOKER PLAN ABX PER ID FOLLOW CULTURES INHALED BRONCHODILATORS STEROIDS RHEUMATOLOGY EVALUATION NOTED F/U CHEST CT OUTPATIENT SEROLOGY KENYATTA,RF,C-ANCA,JOY LEVEL SMOKING CESSATION COUNSELED DR GIRALDO
[2018-12-08] MEDS ORDERED: AZITHROMYCIN IVPB 500 MG/250 ML BAG IVPB SCH (11:52)
--- NOTE | 2018-12-08 11:52 | PN ---
Progress Note, Physician History of Present Illness: AWAKE, ALERT IN BED NO C/O DYSPNEA/ COUGH/ SPUTUM NO C/O F/C TEMPS DOWN AFEBRILE WBC WNL LEGIONELLA AG (-) - Current Medication List Current Medications: Active Medications Acetaminophen (Tylenol -) 650 mg PO Q4H PRN PRN Reason: PAIN OR FEVER Last Admin: 12/08/18 05:48 Dose: 650 mg Albuterol Sulfate (Ventolin 0.083% Nebulizer Soln -) 1 amp NEB RQID PRN PRN Reason: SHORT OF BREATH/WHEEZING Ezetimibe (Zetia -) 10 mg PO DAILY [facility] Last Admin: 12/07/18 09:08 Dose: 10 mg Heparin Sodium (Porcine) (Heparin -) 5,000 unit SQ BID [facility] Last Admin: 12/08/18 11:01 Dose: 5,000 unit Azithromycin 500 mg/ Dextrose 250 mls @ 250 mls/hr IVPB DAILY [facility] Last Admin: 12/07/18 10:57 Dose: 250 mls/hr Ceftriaxone Sodium 2 gm/ (Dextrose) 100 mls @ 200 mls/hr IVPB DAILY [facility]; Protocol Last Admin: 12/08/18 10:59 Dose: 200 mls/hr Ipratropium [place] (Atrovent 0.02% Nebulizer -) 1 amp NEB QIDR PRN PRN Reason: WHEEZING Levothyroxine Sodium 125 mcg/ (Levothyroxine Sodium 50 mcg) 175 mcg PO ACBK [facility] Last Admin: 12/08/18 06:00 Dose: 175 mcg Losartan Potassium (Cozaar -) 100 mg PO DAILY [facility] Last Admin: 12/08/18 11:00 Dose: 100 mg Melatonin (Melatonin) 5 mg PO HS PRN PRN Reason: INSOMNIA Last Admin: 12/07/18 23:48 Dose: 5 mg Methylprednisolone Sodium Succinate (Solu-Medrol -) 40 mg IVPUSH Q8H-IV [facility] Last Admin: 12/08/18 11:06 Dose: Not Given Nicotine (Nicoderm Patch -) 21 mg TD DAILY [facility] Last Admin: 12/08/18 11:00 Dose: 21 mg Non-Formulary Medication (Cholecalciferol (Vitamin D3) [Vitamin D3]) 50,000 unit PO WEEKLY [facility] Pantoprazole Sodium (Protonix -) 40 mg PO DAILY [facility] Last Admin: 12/08/18 11:01 Dose: 40 mg Prasugrel (Effient -) 5 mg PO DAILY [facility] Last Admin: 12/08/18 11:02 Dose: 5 mg Pregabalin 50 mg/ Pregabalin (25 mg) 75 mg PO TID [facility] Last Admin: 12/08/18 05:48 Dose: 75 mg Rosuvastatin Calcium (Crestor -) 40 mg PO HS [facility] Last Admin: 12/07/18 22:19 Dose: 40 mg Sodium Chloride (Normal Saline -) 1,905 ml 30 ml/kg (1905 ml) IV ONCE [facility] Last Admin: 12/07/18 22:28 Dose: Not Given - Objective Vital Signs: Vital Signs Temperature 98.0 F 12/08/18 05:52 Pulse Rate 73 12/08/18 05:52 Respiratory Rate 20 12/08/18 05:52 Blood Pressure 125/66 12/08/18 05:52 O2 Sat by Pulse Oximetry (%) 98 12/07/18 21:00 Constitutional: Yes: No Distress, Obese Cardiovascular: Yes: Regular Rate and Rhythm, S1, S2 Respiratory: Yes: CTA Bilaterally Gastrointestinal: Yes: Normal Bowel Sounds, Soft. No: Tenderness Edema: LLE: 1+, RLE: 1+ Labs: CBC, BMP 12/08/18 07:00 12/07/18 09:00 INR, PTT INR 1.05 (0.83-1.09) 12/06/18 20:35 Assessment/Plan BILATERAL PULM INFILTRATES ?ETIO RHEUM, PULM EVAL APPRECIATED CONTINUE EMPIRIC ZITHROMAX/ CEFTRIAXONE
[2018-12-08] MEDS: EZETIMIBE 10 MG TABLET (FP) PO SCH (13:15)
[2018-12-08] MEDS: AZITHROMYCIN IVPB 500 MG/250 ML BAG IVPB SCH (15:20)
[2018-12-08] MEDS: MAG HYDROX/AL HYDROX/SIMETH 30 ML UNIT-DOSE CUP PO PRN (17:23)
[2018-12-08] MEDS: AZITHROMYCIN IVPB 500 MG in DEXTROSE 5%-WATER - 250 ML IVPB SCH (18:19)
[2018-12-08] MEDS: ROSUVASTATIN CA 20 MG TABLET (FP) PO SCH (21:36)
[2018-12-08] MEDS: MELATONIN 5 MG TABLETS PO PRN (21:36)
[2018-12-09] MEDS: methylPREDNISolone NA SUCC 40 MG/1 ML VIAL IVPUSH SCH ×3 (01:43→17:17)
[2018-12-09] MEDS ORDERED: PREGABALIN 50 MG CAPSULE ONE ×3 (05:02→21:02)
[2018-12-09] MEDS ORDERED: PREGABALIN 25 MG CAPSULE ONE ×3 (05:02→21:02)
[2018-12-09] MEDS ORDERED: LEVOTHYROXINE NA 50 MCG TABLET (FP) ONE (05:03)
[2018-12-09] MEDS ORDERED: LEVOTHYROXINE NA 125 MCG TABLET (FP) ONE (05:03)
[2018-12-09] MEDS: PREGABALIN 50 MG, PREGABALIN 25 MG PO SCH ×3 (05:41→21:20)
[2018-12-09] MEDS: LEVOTHYROXINE 125 MCG, LEVOTHYROXINE 50 MCG PO SCH (06:08)
[2018-12-09 08:16] LABS: BASO % 0.2 % (0-2.0); HEMATOCRIT 36.4 % (32.4-45.2); HEMOGLOBIN 12.2 GM/dL (10.7-15.3); LYMPH % 9.9 % (8-40); MCH 30.8 pg (25.7-33.7); MCHC 33.5 g/dl (32.0-36.0); MEAN CELL VOLUME 91.7 fl (80-96); MEAN PLT VOLUME 11.1 fl (7.5-11.1); MONO % 3.1 % (3.8-10.2); NEUT % 86.8 % (42.8-82.8); PLATELET COUNT 206 K/MM3 (134-434); RBC 3.97 M/mm3 (3.60-5.2); RDW 13.6 % (11.6-15.6); WHITE BLOOD COUNT 12.1 K/mm3 (4.0-10.0)
[2018-12-09 08:35] LABS: ALBUMIN 1.8 g/dl (3.4-5.0); BILIRUBIN,TOTAL 0.3 mg/dL (0.2-1); BLOOD UREA NITROGEN 14.6 mg/dL (7-18); CALCIUM 7.4 mg/dL (8.5-10.1); CREATININE 0.9 mg/dL (0.55-1.3); MAGNESIUM 2.7 mg/dL (1.8-2.4); PHOSPHOROUS 4.2 mg/dL (2.5-4.9); POTASSIUM 4.1 mmol/L (3.5-5.1); TOT PROT 5.6 g/dl (6.4-8.2)
--- NOTE | 2018-12-09 08:39 | PN ---
Progress Note, Physician Chief Complaint: CAP History of Present Illness: NAD Breathing improved, denies SOB - Current Medication List Current Medications: Active Medications Acetaminophen (Tylenol -) 650 mg PO Q4H PRN PRN Reason: PAIN OR FEVER Last Admin: 12/08/18 21:38 Dose: 650 mg Al Hydroxide/Mg Hydroxide (Mylanta Oral Suspension -) 30 ml PO Q6H PRN PRN Reason: DYSPEPSIA Last Admin: 12/08/18 17:23 Dose: 30 ml Albuterol Sulfate (Ventolin 0.083% Nebulizer Soln -) 1 amp NEB RQID PRN PRN Reason: SHORT OF BREATH/WHEEZING Ezetimibe (Zetia -) 10 mg PO DAILY [facility] Last Admin: 12/08/18 13:15 Dose: 10 mg Heparin Sodium (Porcine) (Heparin -) 5,000 unit SQ BID [facility] Last Admin: 12/08/18 21:36 Dose: 5,000 unit Ceftriaxone Sodium 2 gm/ (Dextrose) 100 mls @ 200 mls/hr IVPB DAILY [facility]; Protocol Last Admin: 12/08/18 10:59 Dose: 200 mls/hr Azithromycin (Zithromax 500mg Ivpb (Pre-Docked)) 500 mg in 250 mls @ 250 mls/ hr IVPB DAILY [facility] Last Admin: 12/08/18 15:20 Dose: 250 mls/hr Ipratropium [place] (Atrovent 0.02% Nebulizer -) 1 amp NEB QIDR PRN PRN Reason: WHEEZING Levothyroxine Sodium 125 mcg/ (Levothyroxine Sodium 50 mcg) 175 mcg PO ACBK [facility] Last Admin: 12/09/18 06:08 Dose: 175 mcg Losartan Potassium (Cozaar -) 100 mg PO DAILY [facility] Last Admin: 12/08/18 11:00 Dose: 100 mg Melatonin (Melatonin) 5 mg PO HS PRN PRN Reason: INSOMNIA Last Admin: 12/08/18 21:36 Dose: 5 mg Methylprednisolone Sodium Succinate (Solu-Medrol -) 40 mg IVPUSH Q8H-IV [facility] Last Admin: 12/09/18 01:43 Dose: 40 mg Nicotine (Nicoderm Patch -) 21 mg TD DAILY [facility] Last Admin: 12/08/18 11:00 Dose: 21 mg Non-Formulary Medication (Cholecalciferol (Vitamin D3) [Vitamin D3]) 50,000 unit PO WEEKLY [facility] Pantoprazole Sodium (Protonix -) 40 mg PO DAILY [facility] Last Admin: 12/08/18 11:01 Dose: 40 mg Prasugrel (Effient -) 5 mg PO DAILY [facility] Last Admin: 12/08/18 11:02 Dose: 5 mg Pregabalin 50 mg/ Pregabalin (25 mg) 75 mg PO TID [facility] Last Admin: 12/09/18 05:41 Dose: 75 mg Rosuvastatin Calcium (Crestor -) 40 mg PO HS [facility] Last Admin: 12/08/18 21:36 Dose: 40 mg - Objective Vital Signs: Vital Signs Temperature 97.5 F L 12/09/18 05:00 Pulse Rate 68 12/09/18 05:00 Respiratory Rate 18 12/09/18 05:00 Blood Pressure 137/65 12/09/18 05:00 O2 Sat by Pulse Oximetry (%) 96 12/08/18 21:00 Constitutional: Yes: Well Nourished, No Distress, Calm Cardiovascular: Yes: Regular Rate and Rhythm Respiratory: Yes: Regular, SOB on Exertion Gastrointestinal: Yes: Normal Bowel Sounds, Soft, Abdomen, Obese Genitourinary: Yes: WNL Musculoskeletal: Yes: WNL Extremities: Yes: WNL Edema: No Peripheral Pulses WNL: Yes Neurological: Yes: Alert, Oriented Psychiatric: Yes: Alert, Oriented Labs: CBC, BMP 12/09/18 07:00 12/09/18 07:00 INR, PTT INR 1.05 (0.83-1.09) 12/06/18 20:35 Problem List - Problems (1) Connective tissue disease Assessment/Plan: -Seen by Rheumatology -workup in progress -Echo-normal LVEF at 55% Code(s): M35.9 - SYSTEMIC INVOLVEMENT OF CONNECTIVE TISSUE, UNSPECIFIED (2) Lupus (systemic lupus erythematosus) Assessment/Plan: -questionable as per Rheumatology -Seen by Rheumatology -ESR + CRP elevate -Work up in progress Code(s): M32.9 - SYSTEMIC LUPUS ERYTHEMATOSUS, UNSPECIFIED (3) Pneumonia Assessment/Plan: - Seen by Pulmonary -ID on baord -CXR + CAP -On IV rocephin+ Azithro -Medrol IVP Q6h-->decrease to medrol Q8H-->may change to BID in AM -Bronchodilators -Nasal O2 prn to keep Spo2>90% -Legionella Ag (-) -Pre and post ambulatory SpO2 low, re-evaluate before discharge Code(s): J18.9 - PNEUMONIA, UNSPECIFIED ORGANISM Qualifiers: Pneumonia type: due to unspecified organism Laterality: bilateral Lung location: lower lobe of lung Qualified Code(s): J18.1 - Lobar pneumonia, unspecified organism (4) Interstitial lung disease Assessment/Plan: -Seen by pulmonary and rheumatology -Chest:1. Diffuse groundglass opacification of the lung sanchez, most pronounced within the right upper lobe. The possibility of acute pneumonitis and/or a more chronic inflammatory/infectious process should be clinically considered. 2. Stable bibasilar pulmonary nodules since 09/13/2017. 3. Mediastinal and bilateral hilar lymphadenopathy. Clinical correlation and follow-up recommended. Please see above discussion. 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 Code(s): R80.9 - PROTEINURIA, UNSPECIFIED (6) Elevated troponin Assessment/Plan: -repeat trop today -denies chest pain -likely 2/2 to acute infection Code(s): R74.8 - ABNORMAL LEVELS OF OTHER SERUM ENZYMES Assessment/Plan dvt ppx GI ppx Self ambulatory
--- NOTE | 2018-12-09 10:20 | PN ---
Progress Note (short form) - Note Progress Note: Renal follow up for proteinura/CKD Seen and examined at the bedside awake and alert feels better still has CAMPBELL, no chest pain, fever, chills making urine Vital Signs Temperature 97.5 F L 12/09/18 05:00 Pulse Rate 68 12/09/18 05:00 Respiratory Rate 18 12/09/18 05:00 Blood Pressure 137/65 12/09/18 05:00 O2 Sat by Pulse Oximetry (%) 96 12/08/18 21:00 Intake & Output 12/06/18 12/07/18 12/08/18 12/09/18 23:59 23:59 23:59 23:59 Intake Total 200 450 0 Balance 200 450 0 Weight 63.503 kg 75.659 kg NAD awake and alert RRR, no M/R Course BS soft NT/ND no bladder distension trace LE edema CBC, BMP 12/09/18 07:00 12/09/18 07:00 Current Medications Acetaminophen (Tylenol -) 650 mg PO Q4H PRN PRN Reason: PAIN OR FEVER Last Admin: 12/08/18 21:38 Dose: 650 mg Al Hydroxide/Mg Hydroxide (Mylanta Oral Suspension -) 30 ml PO Q6H PRN PRN Reason: DYSPEPSIA Last Admin: 12/08/18 17:23 Dose: 30 ml Albuterol Sulfate (Ventolin 0.083% Nebulizer Soln -) 1 amp NEB RQID PRN PRN Reason: SHORT OF BREATH/WHEEZING Ezetimibe (Zetia -) 10 mg PO DAILY [facility] Last Admin: 12/08/18 13:15 Dose: 10 mg Heparin Sodium (Porcine) (Heparin -) 5,000 unit SQ BID [facility] Last Admin: 12/08/18 21:36 Dose: 5,000 unit Ceftriaxone Sodium 2 gm/ (Dextrose) 100 mls @ 200 mls/hr IVPB DAILY [facility]; Protocol Last Admin: 12/08/18 10:59 Dose: 200 mls/hr Azithromycin (Zithromax 500mg Ivpb (Pre-Docked)) 500 mg in 250 mls @ 250 mls/ hr IVPB DAILY [facility] Last Admin: 12/08/18 15:20 Dose: 250 mls/hr Ipratropium [place] (Atrovent 0.02% Nebulizer -) 1 amp NEB QIDR PRN PRN Reason: WHEEZING Levothyroxine Sodium 125 mcg/ (Levothyroxine Sodium 50 mcg) 175 mcg PO ACBK [facility] Last Admin: 12/09/18 06:08 Dose: 175 mcg Losartan Potassium (Cozaar -) 100 mg PO DAILY [facility] Last Admin: 12/08/18 11:00 Dose: 100 mg Melatonin (Melatonin) 5 mg PO HS PRN PRN Reason: INSOMNIA Last Admin: 12/08/18 21:36 Dose: 5 mg Methylprednisolone Sodium Succinate (Solu-Medrol -) 40 mg IVPUSH Q8H-IV [facility] Last Admin: 12/09/18 01:43 Dose: 40 mg Nicotine (Nicoderm Patch -) 21 mg TD DAILY [facility] Last Admin: 12/08/18 11:00 Dose: 21 mg Non-Formulary Medication (Cholecalciferol (Vitamin D3) [Vitamin D3]) 50,000 unit PO WEEKLY [facility] Pantoprazole Sodium (Protonix -) 40 mg PO DAILY [facility] Last Admin: 12/08/18 11:01 Dose: 40 mg Prasugrel (Effient -) 5 mg PO DAILY [facility] Last Admin: 12/08/18 11:02 Dose: 5 mg Pregabalin 50 mg/ Pregabalin (25 mg) 75 mg PO TID [facility] Last Admin: 12/09/18 05:41 Dose: 75 mg Rosuvastatin Calcium (Crestor -) 40 mg PO HS [facility] Last Admin: 12/08/18 21:36 Dose: 40 mg 63 year old woman with history of suspected RA, membranous nephropathy, possible Lupus (+ KENYATTA), hypothyrodism who presented from 2 week history of chills and 1 day of fever and admitted for suspected PNA. 1. Nephrotic range proteinuria with hx of membranous nephropathy 2. Possible history of SLE 3. PNA/Sepsis 4. Leukocytosis Renal function stable Serologic studies collected, results pending no acute need for immunosuppressive Tx continue Losartan 100mg daily continue empiric antibiotics as pt appears clinically improved will need close outpatient renal follow up with Dr. Oliver upon discharge Thank you John King DO
[2018-12-09] MEDS ORDERED: DEXTROSE 5%-WATER 100 ML IVPB ONE (11:40)
[2018-12-09] MEDS: AZITHROMYCIN IVPB 500 MG/250 ML BAG IVPB SCH (11:42)
[2018-12-09] MEDS: CEFTRIAXONE 2 GM in DEXTROSE 5%-WATER 100 ML IVPB SCH (11:43)
[2018-12-09] MEDS: LOSARTAN POTASSIUM 50 MG TABLET (FP) PO SCH (11:44)
[2018-12-09] MEDS: PANTOPRAZOLE 40 MG TABLET (FP) PO SCH (11:44)
[2018-12-09] MEDS: HEPARIN NA (PORCINE) 5,000 UNITS/ML 1ML VIAL SQ SCH ×2 (11:45→21:20)
[2018-12-09] MEDS: PRASUGREL HCL 5 MG TAB PO SCH (11:47)
[2018-12-09] MEDS: NICOTINE 21 MG/24 HOURS TOPICAL PATCH TD SCH (11:47)
[2018-12-09] MEDS: EZETIMIBE 10 MG TABLET (FP) PO SCH (11:53)
--- NOTE | 2018-12-09 12:17 | PN ---
Progress Note (short form) - Note Progress Note: NAD on RA. Breathing feels a little better today. No CP. No hemoptysis. Intake & Output 12/06/18 12/07/18 12/08/18 12/09/18 23:59 23:59 23:59 23:59 Intake Total 200 450 0 Balance 200 450 0 Weight 140 lb 166 lb 12.8 oz Last Vital Signs Temp Pulse Resp BP Pulse Ox 97.5 F L 68 18 137/65 96 12/09/18 05:00 12/09/18 05:00 12/09/18 05:00 12/09/18 05:00 12/08/18 21:00 Active Medications Acetaminophen (Tylenol -) 650 mg PO Q4H PRN PRN Reason: PAIN OR FEVER Last Admin: 12/08/18 21:38 Dose: 650 mg Al Hydroxide/Mg Hydroxide (Mylanta Oral Suspension -) 30 ml PO Q6H PRN PRN Reason: DYSPEPSIA Last Admin: 12/08/18 17:23 Dose: 30 ml Albuterol Sulfate (Ventolin 0.083% Nebulizer Soln -) 1 amp NEB RQID PRN PRN Reason: SHORT OF BREATH/WHEEZING Ezetimibe (Zetia -) 10 mg PO DAILY [facility] Last Admin: 12/09/18 11:53 Dose: 10 mg Heparin Sodium (Porcine) (Heparin -) 5,000 unit SQ BID [facility] Last Admin: 12/09/18 11:45 Dose: 5,000 unit Ceftriaxone Sodium 2 gm/ (Dextrose) 100 mls @ 200 mls/hr IVPB DAILY [facility]; Protocol Last Admin: 12/09/18 11:43 Dose: 200 mls/hr Azithromycin (Zithromax 500mg Ivpb (Pre-Docked)) 500 mg in 250 mls @ 250 mls/ hr IVPB DAILY [facility] Last Admin: 12/09/18 11:42 Dose: 250 mls/hr Ipratropium [place] (Atrovent 0.02% Nebulizer -) 1 amp NEB QIDR PRN PRN Reason: WHEEZING Levothyroxine Sodium 125 mcg/ (Levothyroxine Sodium 50 mcg) 175 mcg PO ACBK [facility] Last Admin: 12/09/18 06:08 Dose: 175 mcg Losartan Potassium (Cozaar -) 100 mg PO DAILY [facility] Last Admin: 12/09/18 11:44 Dose: 100 mg Melatonin (Melatonin) 5 mg PO HS PRN PRN Reason: INSOMNIA Last Admin: 12/08/18 21:36 Dose: 5 mg Methylprednisolone Sodium Succinate (Solu-Medrol -) 40 mg IVPUSH Q8H-IV [facility] Last Admin: 12/09/18 11:44 Dose: 40 mg Nicotine (Nicoderm Patch -) 21 mg TD DAILY [facility] Last Admin: 12/09/18 11:47 Dose: 21 mg Non-Formulary Medication (Cholecalciferol (Vitamin D3) [Vitamin D3]) 50,000 unit PO WEEKLY [facility] Pantoprazole Sodium (Protonix -) 40 mg PO DAILY [facility] Last Admin: 12/09/18 11:44 Dose: 40 mg Prasugrel (Effient -) 5 mg PO DAILY [facility] Last Admin: 12/09/18 11:47 Dose: 5 mg Pregabalin 50 mg/ Pregabalin (25 mg) 75 mg PO TID [facility] Last Admin: 12/09/18 05:41 Dose: 75 mg Rosuvastatin Calcium (Crestor -) 40 mg PO HS [facility] Last Admin: 12/08/18 21:36 Dose: 40 mg Constitutional: Yes: No Distress Cardiovascular: Yes: Regular Rate and Rhythm Respiratory: Yes: fine bilateral rhonchi / rales Gastrointestinal: Yes: Normal Bowel Sounds, Soft Genitourinary: Yes: WNL Musculoskeletal: Yes: WNL Extremities: Yes: WNL Edema: No Peripheral Pulses WNL: Yes Neurological: Yes: Alert, Oriented Psychiatric: Yes: Alert, Oriented Labs: Laboratory Results - last 24 hr 12/08/18 12/09/18 12/09/18 12:55 07:00 07:00 WBC 12.1 H RBC 3.97 Hgb 12.2 Hct 36.4 MCV 91.7 MCH 30.8 MCHC 33.5 RDW 13.6 Plt Count 206 MPV 11.1 Absolute Neuts (auto) 10.5 H Neutrophils % 86.8 H Lymphocytes % 9.9 D Monocytes % 3.1 L D Eosinophils % 0.0 D Basophils % 0.2 Nucleated RBC % 0 Sodium 143 Potassium 4.1 Chloride 111 H Carbon Dioxide 25 Anion Gap 7 L BUN 14.6 Creatinine 0.9 Est GFR (CKD-EPI)AfAm 78.87 Est GFR (CKD-EPI)NonAf 68.05 Random Glucose 138 H Calcium 7.4 L Phosphorus 4.2 Magnesium 2.7 H Total Bilirubin 0.3 AST 20 ALT 11 L Alkaline Phosphatase 77 Troponin I 0.03 Total Protein 5.6 L Albumin 1.8 L Problem List - Problems (1) Abnormal chest CT Code(s): R93.89 - ABNORMAL FINDINGS ON DX IMAGING OF OTH BODY STRUCTURES (2) Fever Code(s): R50.9 - FEVER, UNSPECIFIED (3) GERD (gastroesophageal reflux disease) Code(s): K21.9 - GASTRO-ESOPHAGEAL REFLUX DISEASE WITHOUT ESOPHAGITIS (4) H/O parotidectomy Code(s): Z90.49 - ACQUIRED ABSENCE OF OTHER SPECIFIED PARTS OF DIGESTIVE TRACT (5) HLD (hyperlipidemia) Code(s): E78.5 - HYPERLIPIDEMIA, UNSPECIFIED (6) HTN (hypertension) Code(s): I10 - ESSENTIAL (PRIMARY) HYPERTENSION (7) Hypothyroid Code(s): E03.9 - HYPOTHYROIDISM, UNSPECIFIED (8) Lupus (systemic lupus erythematosus) Code(s): M32.9 - SYSTEMIC LUPUS ERYTHEMATOSUS, UNSPECIFIED (9) Pneumonia Code(s): J18.9 - PNEUMONIA, UNSPECIFIED ORGANISM Qualifiers: Pneumonia type: due to unspecified organism Laterality: bilateral Lung location: lower lobe of lung Qualified Code(s): J18.1 - Lobar pneumonia, unspecified organism IMP FEVER WORSENING DIFFUSE BILATERAL GROUND GLASS INFILTRATES LIKELY INFLAMMATORY , ? INFECTIOUS MEDIASTINAL,HILAR ADENOPATHY LIKELY REACTIVE INTERSTITIAL LUNG DISEASE (?) SLE RA S/P THYROIDECTOMY S/P PARA-THYROIDECTOMY S/P L PAROTIDECTOMY H/O PULMONARY NODULES BENIGN SMOKER PLAN ABX PER ID FOLLOW CULTURES INHALED BRONCHODILATORS STEROIDS RHEUMATOLOGY EVALUATION NOTED F/U CHEST CT OUTPATIENT SEROLOGY KENYATTA,RF,C-ANCA,JOY LEVEL SMOKING CESSATION COUNSELED DR GIRALDO
[2018-12-09] MEDS: MAG HYDROX/AL HYDROX/SIMETH 30 ML UNIT-DOSE CUP PO PRN (16:06)
[2018-12-09] MEDS: ROSUVASTATIN CA 20 MG TABLET (FP) PO SCH (21:20)
[2018-12-09] MEDS: ACETAMINOPHEN 325 MG TABLET (FP) PO PRN (21:21)
[2018-12-09] MEDS: MELATONIN 5 MG TABLETS PO PRN (21:26)
[2018-12-10] MEDS: methylPREDNISolone NA SUCC 40 MG/1 ML VIAL IVPUSH SCH ×3 (01:31→17:09)
[2018-12-10] MEDS ORDERED: PREGABALIN 50 MG CAPSULE ONE ×3 (05:31→20:27)
[2018-12-10] MEDS ORDERED: LEVOTHYROXINE NA 125 MCG TABLET (FP) ONE (05:31)
[2018-12-10] MEDS ORDERED: PREGABALIN 25 MG CAPSULE ONE ×3 (05:31→20:28)
[2018-12-10] MEDS ORDERED: LEVOTHYROXINE NA 50 MCG TABLET (FP) ONE (05:32)
[2018-12-10] MEDS: PREGABALIN 50 MG, PREGABALIN 25 MG PO SCH ×3 (05:53→22:01)
[2018-12-10] MEDS: LEVOTHYROXINE 125 MCG, LEVOTHYROXINE 50 MCG PO SCH (06:12)
[2018-12-10 08:09] LABS: ALBUMIN 1.9 g/dl (3.4-5.0); BILIRUBIN,TOTAL 0.2 mg/dL (0.2-1); BLOOD UREA NITROGEN 23.8 mg/dL (7-18); CALCIUM 7.6 mg/dL (8.5-10.1); CREATININE 0.9 mg/dL (0.55-1.3); POTASSIUM 4.6 mmol/L (3.5-5.1); TOT PROT 5.7 g/dl (6.4-8.2)
[2018-12-10] MEDS ORDERED: PT OWN MED DRAWER 7, Y5N ONE (09:47)
[2018-12-10] MEDS ORDERED: DEXTROSE 5%-WATER 100 ML IVPB ONE (09:47)
[2018-12-10] MEDS: NICOTINE 21 MG/24 HOURS TOPICAL PATCH TD SCH (10:09)
[2018-12-10] MEDS: PANTOPRAZOLE 40 MG TABLET (FP) PO SCH (10:09)
[2018-12-10] MEDS: LOSARTAN POTASSIUM 50 MG TABLET (FP) PO SCH (10:09)
[2018-12-10] MEDS: CEFTRIAXONE 2 GM in DEXTROSE 5%-WATER 100 ML IVPB SCH (10:11)
[2018-12-10] MEDS: HEPARIN NA (PORCINE) 5,000 UNITS/ML 1ML VIAL SQ SCH ×2 (10:11→22:02)
[2018-12-10] MEDS: PRASUGREL HCL 5 MG TAB PO SCH (10:11)
[2018-12-10] MEDS: AZITHROMYCIN IVPB 500 MG/250 ML BAG IVPB SCH (10:12)
[2018-12-10] MEDS: EZETIMIBE 10 MG TABLET (FP) PO SCH (10:12)
--- NOTE | 2018-12-10 10:15 | PN ---
Progress Note, Physician Chief Complaint: Pneumonia History of Present Illness: Previous notes and events reviewed awake and alert NAD complain of SOB with exertion denies chest pain - Current Medication List Current Medications: Active Medications Acetaminophen (Tylenol -) 650 mg PO Q4H PRN PRN Reason: PAIN OR FEVER Last Admin: 12/09/18 21:21 Dose: 650 mg Al Hydroxide/Mg Hydroxide (Mylanta Oral Suspension -) 30 ml PO Q6H PRN PRN Reason: DYSPEPSIA Last Admin: 12/09/18 16:06 Dose: 30 ml Albuterol Sulfate (Ventolin 0.083% Nebulizer Soln -) 1 amp NEB RQID PRN PRN Reason: SHORT OF BREATH/WHEEZING Ezetimibe (Zetia -) 10 mg PO DAILY [facility] Last Admin: 12/09/18 11:53 Dose: 10 mg Heparin Sodium (Porcine) (Heparin -) 5,000 unit SQ BID [facility] Last Admin: 12/09/18 21:20 Dose: 5,000 unit Ceftriaxone Sodium 2 gm/ (Dextrose) 100 mls @ 200 mls/hr IVPB DAILY [facility]; Protocol Last Admin: 12/09/18 11:43 Dose: 200 mls/hr Azithromycin (Zithromax 500mg Ivpb (Pre-Docked)) 500 mg in 250 mls @ 250 mls/ hr IVPB DAILY [facility] Last Admin: 12/09/18 11:42 Dose: 250 mls/hr Ipratropium [place] (Atrovent 0.02% Nebulizer -) 1 amp NEB QIDR PRN PRN Reason: WHEEZING Levothyroxine Sodium 125 mcg/ (Levothyroxine Sodium 50 mcg) 175 mcg PO ACBK [facility] Last Admin: 12/10/18 06:12 Dose: 175 mcg Losartan Potassium (Cozaar -) 100 mg PO DAILY [facility] Last Admin: 12/09/18 11:44 Dose: 100 mg Melatonin (Melatonin) 5 mg PO HS PRN PRN Reason: INSOMNIA Last Admin: 12/09/18 21:26 Dose: 5 mg Methylprednisolone Sodium Succinate (Solu-Medrol -) 40 mg IVPUSH Q8H-IV [facility] Last Admin: 12/10/18 01:31 Dose: 40 mg Nicotine (Nicoderm Patch -) 21 mg TD DAILY [facility] Last Admin: 12/09/18 11:47 Dose: 21 mg Non-Formulary Medication (Cholecalciferol (Vitamin D3) [Vitamin D3]) 50,000 unit PO WEEKLY [facility] Pantoprazole Sodium (Protonix -) 40 mg PO DAILY [facility] Last Admin: 12/09/18 11:44 Dose: 40 mg Prasugrel (Effient -) 5 mg PO DAILY [facility] Last Admin: 12/09/18 11:47 Dose: 5 mg Pregabalin 50 mg/ Pregabalin (25 mg) 75 mg PO TID [facility] Last Admin: 12/10/18 05:53 Dose: 75 mg Rosuvastatin Calcium (Crestor -) 40 mg PO HS [facility] Last Admin: 12/09/18 21:20 Dose: 40 mg - Objective Vital Signs: Vital Signs Temperature 98.1 F 12/10/18 06:00 Pulse Rate 62 12/10/18 06:00 Respiratory Rate 18 12/10/18 06:00 Blood Pressure 141/74 12/10/18 06:00 O2 Sat by Pulse Oximetry (%) 95 12/09/18 21:00 Constitutional: Yes: No Distress, Calm Eyes: Yes: Conjunctiva Clear HENT: Yes: Atraumatic Cardiovascular: Yes: Regular Rate and Rhythm Respiratory: Yes: Regular, Diminished, SOB on Exertion Gastrointestinal: Yes: Normal Bowel Sounds, Soft Musculoskeletal: Yes: WNL Extremities: Yes: WNL Edema: Yes Edema: LLE: Trace, RLE: Trace Neurological: Yes: Alert, Oriented Psychiatric: Yes: Alert, Oriented Labs: CBC, BMP 12/09/18 07:00 12/10/18 06:40 INR, PTT INR 1.05 (0.83-1.09) 12/06/18 20:35 Microbiology 12/06/18 20:08 Blood - Peripheral Venous Blood Culture - Preliminary NO GROWTH OBTAINED AFTER 72 HOURS, INCUBATION TO CONTINUE FOR 2 DAYS. 12/06/18 20:35 Blood - Peripheral Venous Blood Culture - Preliminary NO GROWTH OBTAINED AFTER 72 HOURS, INCUBATION TO CONTINUE FOR 2 DAYS. 12/06/18 21:10 Urine - Urine Clean Catch Urine Culture - Final NO GROWTH OBTAINED 12/07/18 09:55 Urine For Antigen Detection Legionella Antigen - Final 12/07/18 09:55 Urine For Antigen Detection Streptococcus pneumoniae Antigen (M - Final Problem List - Problems (1) Connective tissue disease Assessment/Plan: -Rheumatology on board -pending lab workup resultss Code(s): M35.9 - SYSTEMIC INVOLVEMENT OF CONNECTIVE TISSUE, UNSPECIFIED (2) GERD (gastroesophageal reflux disease) Assessment/Plan: -Pantoprazole Code(s): K21.9 - GASTRO-ESOPHAGEAL REFLUX DISEASE WITHOUT ESOPHAGITIS (3) HLD (hyperlipidemia) Assessment/Plan: -Rosuvastatin, Zetia Code(s): E78.5 - HYPERLIPIDEMIA, UNSPECIFIED (4) HTN (hypertension) Assessment/Plan: -Losartan -low Na diet Code(s): I10 - ESSENTIAL (PRIMARY) HYPERTENSION (5) Hypothyroid Assessment/Plan: -Levothyroxine Code(s): E03.9 - HYPOTHYROIDISM, UNSPECIFIED (6) Interstitial lung disease Assessment/Plan: -Pulm on board -O2 via NC -keep SpO2 >90% -Chest CT scan shows diffuse groundglass opacification of the lung sanchez most pronounced in the RUL, possibility of acute pneumonitis and/or more chronic infalmmatory/infectious process, stable bibasilar pulmonary nodules, mediastinal and bilateral hilar lymphadenopathy -failed pre/post ambulatory SpO2, will need home O2 Code(s): J84.9 - INTERSTITIAL PULMONARY DISEASE, UNSPECIFIED (7) Pneumonia Assessment/Plan: -Pulm on board -CXR shows congestive/infiltrative changes -leukocytosis -afebrile -BC neg -Urine Legionella neg -Ceftriaxone, Azithromycin -IV Medrol -Chest CT scan shows diffuse groundglass opacification of the lung sanchez most pronounced in the RUL, possibility of acute pneumonitis and/or more chronic infalmmatory/infectious process, stable bibasilar pulmonary nodules, mediastinal and bilateral hilar lymphadenopathy -O2 via NC -keep SpO2 >90% -failed pre/post ambulatory SpO2, will need home O2 Code(s): J18.9 - PNEUMONIA, UNSPECIFIED ORGANISM Qualifiers: Pneumonia type: due to unspecified organism Laterality: bilateral Lung location: lower lobe of lung Qualified Code(s): J18.1 - Lobar pneumonia, unspecified organism (8) Sepsis Assessment/Plan: -CXR shows congestive/infiltrative changes -leukocytosis -afebrile -BC neg -UC neg -Urine Legionella neg -Ceftriaxone, Azithromycin -Chest CT scan shows diffuse groundglass opacification of the lung sanchez most pronounced in the RUL, possibility of acute pneumonitis and/or more chronic infalmmatory/infectious process, stable bibasilar pulmonary nodules, mediastinal and bilateral hilar lymphadenopathy -LA 1.8 Code(s): A41.9 - SEPSIS, UNSPECIFIED ORGANISM (9) Proteinuria Assessment/Plan: -Renal on board -Renal biopsy tomorrow with IR -UA shows 4+ Code(s): R80.9 - PROTEINURIA, UNSPECIFIED Assessment/Plan see problem list dvt ppx
--- NOTE | 2018-12-10 10:19 | PN ---
Progress Note (short form) - Note Progress Note: NAD on RA. Breathing feels a little better today. Ambulating more. No CP. No hemoptysis. Intake & Output 12/07/18 12/08/18 12/09/18 12/10/18 23:59 23:59 23:59 23:59 Intake Total 200 450 0 0 Balance 200 450 0 0 Weight 166 lb 12.8 oz Last Vital Signs Temp Pulse Resp BP Pulse Ox 98.1 F 62 18 141/74 95 12/10/18 06:00 12/10/18 06:00 12/10/18 06:00 12/10/18 06:00 12/09/18 21:00 Active Medications Acetaminophen (Tylenol -) 650 mg PO Q4H PRN PRN Reason: PAIN OR FEVER Last Admin: 12/09/18 21:21 Dose: 650 mg Al Hydroxide/Mg Hydroxide (Mylanta Oral Suspension -) 30 ml PO Q6H PRN PRN Reason: DYSPEPSIA Last Admin: 12/09/18 16:06 Dose: 30 ml Albuterol Sulfate (Ventolin 0.083% Nebulizer Soln -) 1 amp NEB RQID PRN PRN Reason: SHORT OF BREATH/WHEEZING Ezetimibe (Zetia -) 10 mg PO DAILY [facility] Last Admin: 12/10/18 10:12 Dose: 10 mg Heparin Sodium (Porcine) (Heparin -) 5,000 unit SQ BID [facility] Last Admin: 12/10/18 10:11 Dose: 5,000 unit Ceftriaxone Sodium 2 gm/ (Dextrose) 100 mls @ 200 mls/hr IVPB DAILY [facility]; Protocol Last Admin: 12/10/18 10:11 Dose: 200 mls/hr Azithromycin (Zithromax 500mg Ivpb (Pre-Docked)) 500 mg in 250 mls @ 250 mls/ hr IVPB DAILY [facility] Last Admin: 12/10/18 10:12 Dose: 250 mls/hr Ipratropium [place] (Atrovent 0.02% Nebulizer -) 1 amp NEB QIDR PRN PRN Reason: WHEEZING Levothyroxine Sodium 125 mcg/ (Levothyroxine Sodium 50 mcg) 175 mcg PO ACBK [facility] Last Admin: 12/10/18 06:12 Dose: 175 mcg Losartan Potassium (Cozaar -) 100 mg PO DAILY [facility] Last Admin: 12/10/18 10:09 Dose: 100 mg Melatonin (Melatonin) 5 mg PO HS PRN PRN Reason: INSOMNIA Last Admin: 12/09/18 21:26 Dose: 5 mg Methylprednisolone Sodium Succinate (Solu-Medrol -) 40 mg IVPUSH Q8H-IV [facility] Last Admin: 12/10/18 10:10 Dose: 40 mg Nicotine (Nicoderm Patch -) 21 mg TD DAILY [facility] Last Admin: 12/10/18 10:09 Dose: 21 mg Non-Formulary Medication (Cholecalciferol (Vitamin D3) [Vitamin D3]) 50,000 unit PO WEEKLY [facility] Pantoprazole Sodium (Protonix -) 40 mg PO DAILY [facility] Last Admin: 12/10/18 10:09 Dose: 40 mg Prasugrel (Effient -) 5 mg PO DAILY [facility] Last Admin: 12/10/18 10:11 Dose: 5 mg Pregabalin 50 mg/ Pregabalin (25 mg) 75 mg PO TID [facility] Last Admin: 12/10/18 05:53 Dose: 75 mg Rosuvastatin Calcium (Crestor -) 40 mg PO HS [facility] Last Admin: 12/09/18 21:20 Dose: 40 mg Constitutional: Yes: No Distress Cardiovascular: Yes: Regular Rate and Rhythm Respiratory: Yes: fine bilateral rhonchi / rales Gastrointestinal: Yes: Normal Bowel Sounds, Soft Genitourinary: Yes: WNL Musculoskeletal: Yes: WNL Extremities: Yes: WNL Edema: No Peripheral Pulses WNL: Yes Neurological: Yes: Alert, Oriented Psychiatric: Yes: Alert, Oriented Labs: Laboratory Results - last 24 hr 12/10/18 06:40 Sodium 143 Potassium 4.6 Chloride 111 H Carbon Dioxide 27 Anion Gap 5 L BUN 23.8 H Creatinine 0.9 Est GFR (CKD-EPI)AfAm 78.87 Est GFR (CKD-EPI)NonAf 68.05 Random Glucose 145 H Calcium 7.6 L Total Bilirubin 0.2 AST 47 H ALT 32 Alkaline Phosphatase 90 Total Protein 5.7 L Albumin 1.9 L Problem List - Problems (1) Abnormal chest CT Code(s): R93.89 - ABNORMAL FINDINGS ON DX IMAGING OF OTH BODY STRUCTURES (2) Fever Code(s): R50.9 - FEVER, UNSPECIFIED (3) GERD (gastroesophageal reflux disease) Code(s): K21.9 - GASTRO-ESOPHAGEAL REFLUX DISEASE WITHOUT ESOPHAGITIS (4) H/O parotidectomy Code(s): Z90.49 - ACQUIRED ABSENCE OF OTHER SPECIFIED PARTS OF DIGESTIVE TRACT (5) HLD (hyperlipidemia) Code(s): E78.5 - HYPERLIPIDEMIA, UNSPECIFIED (6) HTN (hypertension) Code(s): I10 - ESSENTIAL (PRIMARY) HYPERTENSION (7) Hypothyroid Code(s): E03.9 - HYPOTHYROIDISM, UNSPECIFIED (8) Lupus (systemic lupus erythematosus) Code(s): M32.9 - SYSTEMIC LUPUS ERYTHEMATOSUS, UNSPECIFIED (9) Pneumonia Code(s): J18.9 - PNEUMONIA, UNSPECIFIED ORGANISM Qualifiers: Pneumonia type: due to unspecified organism Laterality: bilateral Lung location: lower lobe of lung Qualified Code(s): J18.1 - Lobar pneumonia, unspecified organism IMP FEVER WORSENING DIFFUSE BILATERAL GROUND GLASS INFILTRATES LIKELY INFLAMMATORY , ? INFECTIOUS MEDIASTINAL,HILAR ADENOPATHY LIKELY REACTIVE INTERSTITIAL LUNG DISEASE (?) SLE RA S/P THYROIDECTOMY S/P PARA-THYROIDECTOMY S/P L PAROTIDECTOMY H/O PULMONARY NODULES BENIGN SMOKER PLAN ABX PER ID FOLLOW CULTURES INHALED BRONCHODILATORS STEROIDS RHEUMATOLOGY EVALUATION NOTED F/U CHEST CT OUTPATIENT FOLLOW UP PENDING SEROLOGY SMOKING CESSATION COUNSELED DR GIRALDO
--- NOTE | 2018-12-10 12:11 | PN ---
Progress Note (short form) - Note Progress Note: afebrile, feels improved rheumatology consult noted -no RA, unlikely lupus, hissory of membranous nephropathy, history of autoimmune hepatitis Vital Signs Period Temp Pulse Resp BP Sys/Lopez Pulse Ox Last 24 Hr 98.1 F-98.7 F 62-75 18-20 141-150/69-87 95 cor-rrr lungs clear abd soft,nt ext trace pretibial edema CBC, BMP 12/09/18 07:00 12/10/18 06:40 Microbiology 12/06/18 20:08 Blood - Peripheral Venous Blood Culture - Preliminary NO GROWTH OBTAINED AFTER 72 HOURS, INCUBATION TO CONTINUE FOR 2 DAYS. 12/06/18 20:35 Blood - Peripheral Venous Blood Culture - Preliminary NO GROWTH OBTAINED AFTER 72 HOURS, INCUBATION TO CONTINUE FOR 2 DAYS. 12/06/18 21:10 Urine - Urine Clean Catch Urine Culture - Final NO GROWTH OBTAINED 12/07/18 09:55 Urine For Antigen Detection Legionella Antigen - Final 12/07/18 09:55 Urine For Antigen Detection Streptococcus pneumoniae Antigen (M - Final chest CT with increased patchy bilateral infiltrates, stable bibasilar pulmonary nodules (2018) and mediastinal adenopathy no cough no hemoptysis a/p fever/abnormal chest ct membranous nephropathy with proteinuria s/p vaccinations last week-shingrix /pneumovax history pulmonary nodule improved day #4 antibiotics now on steroids component ILD, ?sarcoid suspect she will need a lung biopsy will get HIV testing as well zithromax will be completed in am (day #5) can switch to po ceftin 500 bid for another 5 days when ready for discharge will need close outpt followup with renal and pulmonary Problem List - Problems (1) Fever Code(s): R50.9 - FEVER, UNSPECIFIED (2) Pneumonia Code(s): J18.9 - PNEUMONIA, UNSPECIFIED ORGANISM Qualifiers: Pneumonia type: due to unspecified organism Laterality: bilateral Lung location: lower lobe of lung Qualified Code(s): J18.1 - Lobar pneumonia, unspecified organism (3) Abnormal chest CT Code(s): R93.89 - ABNORMAL FINDINGS ON DX IMAGING OF OTH BODY STRUCTURES (4) Lupus (systemic lupus erythematosus) Code(s): M32.9 - SYSTEMIC LUPUS ERYTHEMATOSUS, UNSPECIFIED (5) Rheumatoid arthritis Code(s): M06.9 - RHEUMATOID ARTHRITIS, UNSPECIFIED
[2018-12-10] MEDS: ACETAMINOPHEN 325 MG TABLET (FP) PO PRN ×2 (12:14→19:48)
--- NOTE | 2018-12-10 14:30 | PN ---
Progress Note, Physician History of Present Illness: Pt seen and examined at bedside. SHe is awake and alert. She denies shortness of breath. She denies dysuria. - Current Medication List Current Medications: Active Medications Acetaminophen (Tylenol -) 650 mg PO Q4H PRN PRN Reason: PAIN OR FEVER Last Admin: 12/10/18 12:14 Dose: 650 mg Al Hydroxide/Mg Hydroxide (Mylanta Oral Suspension -) 30 ml PO Q6H PRN PRN Reason: DYSPEPSIA Last Admin: 12/09/18 16:06 Dose: 30 ml Albuterol Sulfate (Ventolin 0.083% Nebulizer Soln -) 1 amp NEB RQID PRN PRN Reason: SHORT OF BREATH/WHEEZING Ezetimibe (Zetia -) 10 mg PO DAILY [facility] Last Admin: 12/10/18 10:12 Dose: 10 mg Heparin Sodium (Porcine) (Heparin -) 5,000 unit SQ BID [facility] Last Admin: 12/10/18 10:11 Dose: 5,000 unit Ceftriaxone Sodium 2 gm/ (Dextrose) 100 mls @ 200 mls/hr IVPB DAILY [facility]; Protocol Last Admin: 12/10/18 10:11 Dose: 200 mls/hr Azithromycin (Zithromax 500mg Ivpb (Pre-Docked)) 500 mg in 250 mls @ 250 mls/ hr IVPB DAILY [facility] Last Admin: 12/10/18 10:12 Dose: 250 mls/hr Ipratropium [place] (Atrovent 0.02% Nebulizer -) 1 amp NEB QIDR PRN PRN Reason: WHEEZING Levothyroxine Sodium 125 mcg/ (Levothyroxine Sodium 50 mcg) 175 mcg PO ACBK [facility] Last Admin: 12/10/18 06:12 Dose: 175 mcg Losartan Potassium (Cozaar -) 100 mg PO DAILY [facility] Last Admin: 12/10/18 10:09 Dose: 100 mg Melatonin (Melatonin) 5 mg PO HS PRN PRN Reason: INSOMNIA Last Admin: 12/09/18 21:26 Dose: 5 mg Methylprednisolone Sodium Succinate (Solu-Medrol -) 40 mg IVPUSH Q8H-IV [facility] Last Admin: 12/10/18 10:10 Dose: 40 mg Nicotine (Nicoderm Patch -) 21 mg TD DAILY [facility] Last Admin: 12/10/18 10:09 Dose: 21 mg Non-Formulary Medication (Cholecalciferol (Vitamin D3) [Vitamin D3]) 50,000 unit PO WEEKLY [facility] Pantoprazole Sodium (Protonix -) 40 mg PO DAILY [facility] Last Admin: 12/10/18 10:09 Dose: 40 mg Prasugrel (Effient -) 5 mg PO DAILY [facility] Last Admin: 12/10/18 10:11 Dose: 5 mg Pregabalin 50 mg/ Pregabalin (25 mg) 75 mg PO TID [facility] Last Admin: 12/10/18 14:07 Dose: 75 mg Rosuvastatin Calcium (Crestor -) 40 mg PO [facility] Last Admin: 12/09/18 21:20 Dose: 40 mg - Objective Vital Signs: Vital Signs Temperature 98.1 F 12/10/18 13:55 Pulse Rate 60 12/10/18 10:04 Respiratory Rate 18 12/10/18 10:04 Blood Pressure 177/69 H 12/10/18 10:04 O2 Sat by Pulse Oximetry (%) 98 12/10/18 10:05 Constitutional: Yes: Calm Eyes: Yes: Conjunctiva Clear HENT: Yes: Atraumatic Neck: Yes: Supple Cardiovascular: Yes: S1, S2 Respiratory: Yes: CTA Bilaterally Gastrointestinal: Yes: Normal Bowel Sounds, Soft Musculoskeletal: Yes: WNL Edema: Yes Edema: LLE: Trace, RLE: Trace Integumentary: Yes: WNL Neurological: Yes: Oriented Psychiatric: Yes: Oriented Labs: CBC, BMP 12/09/18 07:00 12/10/18 06:40 INR, PTT INR 1.05 (0.83-1.09) 12/06/18 20:35 Problem List - Problems (1) Pneumonia Code(s): J18.9 - PNEUMONIA, UNSPECIFIED ORGANISM Qualifiers: Pneumonia type: due to unspecified organism Laterality: bilateral Lung location: lower lobe of lung Qualified Code(s): J18.1 - Lobar pneumonia, unspecified organism (2) Proteinuria Code(s): R80.9 - PROTEINURIA, UNSPECIFIED Assessment/Plan Current Medications Generic Name Dose Route Start Last Admin Trade Name Freq PRN Reason Stop Dose Admin Acetaminophen 650 mg 12/07/18 01:31 12/10/18 12:14 Tylenol - PO 650 mg Q4H PRN Administration PAIN OR FEVER Al Hydroxide/Mg Hydroxide 30 ml 12/08/18 17:12 12/09/18 16:06 Mylanta Oral Suspension - PO 30 ml Q6H PRN Administration DYSPEPSIA Albuterol Sulfate 1 amp 12/07/18 01:31 Ventolin 0.083% Nebulizer Soln - NEB RQID PRN SHORT OF BREATH/WHEEZING Ezetimibe 10 mg 12/07/18 10:00 12/10/18 10:12 Zetia - PO 10 mg DAILY [facility] Administration Heparin Sodium (Porcine) 5,000 unit 12/07/18 10:00 12/10/18 10:11 Heparin - SQ 5,000 unit BID [facility] Administration Ceftriaxone Sodium 2 gm/ 100 mls @ 200 mls/hr 12/08/18 10:00 12/10/18 10:11 Dextrose IVPB 200 mls/hr DAILY [facility] Administration Protocol Azithromycin 500 mg in 250 mls @ 250 mls/hr 12/08/18 10:00 12/10/18 10:12 Zithromax 500mg Ivpb (Pre-Docked) IVPB 250 mls/hr DAILY [facility] Administration Ipratropium [place] 1 amp 12/07/18 01:40 Atrovent 0.02% Nebulizer - NEB QIDR PRN [facility]ING Levothyroxine Sodium 125 mcg/ 175 mcg 12/07/18 07:00 12/10/18 06:12 Levothyroxine Sodium 50 mcg PO 175 mcg ACBK [facility]W Administration Losartan Potassium 100 mg 12/07/18 10:00 12/10/18 10:09 Cozaar - PO 100 mg DAILY [facility] Administration Melatonin 5 mg 12/07/18 22:34 12/09/18 21:26 Melatonin PO 5 mg HS PRN Administration INSOMNIA Methylprednisolone Sodium Succinate 40 mg 12/08/18 11:00 12/10/18 10:10 Solu-Medrol - IVPUSH 40 mg Q8H-IV [facility] Administration Nicotine 21 mg 12/07/18 12:45 12/10/18 10:09 Nicoderm Patch - TD 21 mg DAILY [facility] Administration Non-Formulary Medication 50,000 unit 12/07/18 01:30 Cholecalciferol (Vitamin D3) [Vitamin D3] PO WEEKLY [facility] Pantoprazole Sodium 40 mg 12/07/18 10:00 12/10/18 10:09 Protonix - PO 40 mg DAILY [facility] Administration Prasugrel 5 mg 12/07/18 10:00 12/10/18 10:11 Effient - PO 5 mg DAILY [facility] Administration Pregabalin 50 mg/ Pregabalin 75 mg 12/07/18 06:00 12/10/18 14:07 25 mg PO 75 mg TID [facility] Administration Rosuvastatin Calcium 40 mg 12/07/18 22:00 12/09/18 21:20 Crestor - PO 40 mg HS [facility] Administration Laboratory Tests 06/30/14 01/13/15 06/10/15 15:41 12:30 12:00 Creatinine Albumin Urine Blood Negative Negative Negative Urine Protein Negative Negative [place] Screen c-ANCA Proteinase 3 (PR3) p-ANCA Atypical p-ANCA Myeloperoxidase Ab Double Strand DNA Ab Tot Complement (CH50) 09/21/15 12/06/18 12/08/18 15:05 21:10 07:00 Creatinine Albumin Urine Blood 1+ H 3+ H Urine Protein Negative 4+ H [place] Screen c-ANCA Pending Proteinase 3 (PR3) Pending p-ANCA Pending Atypical p-ANCA Pending Myeloperoxidase Ab Pending Double Strand DNA Ab Tot Complement (CH50) 12/08/18 12/10/18 07:00 06:40 Creatinine 0.9 Albumin 1.9 L Urine Blood Urine Protein [place] Screen Pending c-ANCA Proteinase 3 (PR3) p-ANCA Atypical p-ANCA Myeloperoxidase Ab Double Strand DNA Ab Pending Tot Complement (CH50) Pending Impression 1. CKD 2. Proteinuria 3. pna 4. gerd 5. hld 6. hypothyroidism 7. SLE Plan - follow serologic workup - discussed with rheumatology who recommend kidney biopsy - called IR to schedule kidney biopsy - check prt to [employer] administrator ratio - possible hx of membranous in the past - reviewed old UA findings and her urine sediment is worse
[2018-12-10] MEDS ORDERED: amLODIPine BESYLATE 5 MG TABLET (FP) PO ONE (14:52)
[2018-12-10] MEDS: MELATONIN 5 MG TABLETS PO PRN (22:01)
[2018-12-10] MEDS: ROSUVASTATIN CA 20 MG TABLET (FP) PO SCH (22:01)
[2018-12-11] MEDS ORDERED: MELATONIN 5 MG TABLETS PO ONE (02:25)
[2018-12-11] MEDS: methylPREDNISolone NA SUCC 40 MG/1 ML VIAL IVPUSH SCH ×3 (02:28→17:09)
[2018-12-11] MEDS ORDERED: PREGABALIN 50 MG CAPSULE ONE ×3 (06:23→20:58)
[2018-12-11] MEDS ORDERED: PREGABALIN 25 MG CAPSULE ONE ×3 (06:23→20:58)
[2018-12-11] MEDS ORDERED: LEVOTHYROXINE NA 125 MCG TABLET (FP) ONE (06:23)
[2018-12-11] MEDS ORDERED: LEVOTHYROXINE NA 50 MCG TABLET (FP) ONE (06:23)
[2018-12-11] MEDS: PREGABALIN 50 MG, PREGABALIN 25 MG PO SCH ×3 (06:25→21:53)
[2018-12-11] MEDS: LEVOTHYROXINE 125 MCG, LEVOTHYROXINE 50 MCG PO SCH (06:25)
[2018-12-11 07:48] LABS: HEMATOCRIT 36.4 % (32.4-45.2); HEMOGLOBIN 12.3 GM/dL (10.7-15.3); MCH 30.9 pg (25.7-33.7); MCHC 33.8 g/dl (32.0-36.0); MEAN CELL VOLUME 91.4 fl (80-96); MEAN PLT VOLUME 10.4 fl (7.5-11.1); PLATELET COUNT 228 K/MM3 (134-434); RBC 3.98 M/mm3 (3.60-5.2); RDW 13.4 % (11.6-15.6); WHITE BLOOD COUNT 9.1 K/mm3 (4.0-10.0)
[2018-12-11 08:39] LABS: BILIRUBIN,TOTAL 0.2 mg/dL (0.2-1); BLOOD UREA NITROGEN 21.7 mg/dL (7-18); CALCIUM 7.4 mg/dL (8.5-10.1); CREATININE 0.9 mg/dL (0.55-1.3); POTASSIUM 4.4 mmol/L (3.5-5.1); TOT PROT 5.8 g/dl (6.4-8.2)
[2018-12-11] MEDS ORDERED: PT OWN MED DRAWER 7, Y5N ONE (08:51)
[2018-12-11] MEDS ORDERED: DEXTROSE 5%-WATER 100 ML IVPB ONE (08:52)
[2018-12-11] MEDS: AZITHROMYCIN IVPB 500 MG/250 ML BAG IVPB SCH (09:09)
[2018-12-11] MEDS: CEFTRIAXONE 2 GM in DEXTROSE 5%-WATER 100 ML IVPB SCH (09:09)
[2018-12-11] MEDS: PANTOPRAZOLE 40 MG TABLET (FP) PO SCH (09:10)
[2018-12-11] MEDS: HEPARIN NA (PORCINE) 5,000 UNITS/ML 1ML VIAL SQ SCH ×2 (09:10→21:53)
[2018-12-11] MEDS: LOSARTAN POTASSIUM 50 MG TABLET (FP) PO SCH (09:10)
[2018-12-11] MEDS: NICOTINE 21 MG/24 HOURS TOPICAL PATCH TD SCH (09:10)
[2018-12-11] MEDS: PRASUGREL HCL 5 MG TAB PO SCH (09:11)
[2018-12-11] MEDS: EZETIMIBE 10 MG TABLET (FP) PO SCH (09:11)
--- NOTE | 2018-12-11 10:11 | PN ---
Progress Note (short form) - Note Progress Note: NAD on RA. Breathing feels a little better today. Ambulating more. No CP. No hemoptysis. Intake & Output 12/08/18 12/09/18 12/10/18 12/11/18 23:59 23:59 23:59 23:59 Intake Total 450 0 1030 200 Balance 450 0 1030 200 Weight 171 lb 3 oz Last Vital Signs Temp Pulse Resp BP Pulse Ox 98.2 F 59 L 18 130/70 97 12/11/18 05:27 12/11/18 05:27 12/11/18 05:27 12/11/18 05:27 12/10/18 21:00 Active Medications Acetaminophen (Tylenol -) 650 mg PO Q4H PRN PRN Reason: PAIN OR FEVER Last Admin: 12/10/18 19:48 Dose: 650 mg Al Hydroxide/Mg Hydroxide (Mylanta Oral Suspension -) 30 ml PO Q6H PRN PRN Reason: DYSPEPSIA Last Admin: 12/09/18 16:06 Dose: 30 ml Albuterol Sulfate (Ventolin 0.083% Nebulizer Soln -) 1 amp NEB RQID PRN PRN Reason: SHORT OF BREATH/WHEEZING Ezetimibe (Zetia -) 10 mg PO DAILY MATTHEW Last Admin: 12/11/18 09:11 Dose: 10 mg Heparin Sodium (Porcine) (Heparin -) 5,000 unit SQ BID MATTHEW Last Admin: 12/11/18 09:10 Dose: 5,000 unit Ceftriaxone Sodium 2 gm/ (Dextrose) 100 mls @ 200 mls/hr IVPB DAILY MATTHEW; Protocol Last Admin: 12/11/18 09:09 Dose: 200 mls/hr Azithromycin (Zithromax 500mg Ivpb (Pre-Docked)) 500 mg in 250 mls @ 250 mls/ hr IVPB DAILY [facility]W Last Admin: 12/11/18 09:09 Dose: 250 mls/hr Ipratropium [place] (Atrovent 0.02% Nebulizer -) 1 amp NEB QIDR PRN PRN Reason: WHEEZING Levothyroxine Sodium 125 mcg/ (Levothyroxine Sodium 50 mcg) 175 mcg PO ACBK MATTHEW Last Admin: 12/11/18 06:25 Dose: 175 mcg Losartan Potassium (Cozaar -) 100 mg PO DAILY [facility]W Last Admin: 12/11/18 09:10 Dose: 100 mg Melatonin (Melatonin) 5 mg PO HS PRN PRN Reason: INSOMNIA Last Admin: 12/10/18 22:01 Dose: 5 mg Methylprednisolone Sodium Succinate (Solu-Medrol -) 40 mg IVPUSH Q8H-IV [facility] Last Admin: 12/11/18 09:10 Dose: 40 mg Nicotine (Nicoderm Patch -) 21 mg TD DAILY [facility] Last Admin: 12/11/18 09:10 Dose: 21 mg Non-Formulary Medication (Cholecalciferol (Vitamin D3) [Vitamin D3]) 50,000 unit PO WEEKLY [facility] Pantoprazole Sodium (Protonix -) 40 mg PO DAILY [facility] Last Admin: 12/11/18 09:10 Dose: 40 mg Prasugrel (Effient -) 5 mg PO DAILY [facility] Last Admin: 12/11/18 09:11 Dose: 5 mg Pregabalin 50 mg/ Pregabalin (25 mg) 75 mg PO TID [facility] Last Admin: 12/11/18 06:25 Dose: 75 mg Rosuvastatin Calcium (Crestor -) 40 mg PO HS [facility] Last Admin: 12/10/18 22:01 Dose: 40 mg Constitutional: Yes: No Distress Cardiovascular: Yes: Regular Rate and Rhythm Respiratory: Yes: fine bilateral rhonchi / rales Gastrointestinal: Yes: Normal Bowel Sounds, Soft Genitourinary: Yes: WNL Musculoskeletal: Yes: WNL Extremities: Yes: WNL Edema: No Peripheral Pulses WNL: Yes Neurological: Yes: Alert, Oriented Psychiatric: Yes: Alert, Oriented Labs: Laboratory Results - last 24 hr 12/08/18 12/11/18 12/11/18 07:00 07:05 07:05 WBC 9.1 RBC 3.98 Hgb 12.3 Hct 36.4 MCV 91.4 MCH 30.9 MCHC 33.8 RDW 13.4 Plt Count 228 MPV 10.4 Sodium 142 Potassium 4.4 Chloride 109 H Carbon Dioxide 28 Anion Gap 5 L BUN 21.7 H Creatinine 0.9 Est GFR (CKD-EPI)AfAm 78.87 Est GFR (CKD-EPI)NonAf 68.05 Random Glucose 149 H Calcium 7.4 L Total Bilirubin 0.2 AST 81 H ALT 80 H Alkaline Phosphatase 98 Total Protein 5.8 L Albumin 2.0 L KENYATTA Screen Positive H KENY[place]TA Homogeneous Pattern 1:320 H K[place] Nucleolar Pattern TNP K[place] Spindle Jacqueline Pattern TNP [place] Midbody Pattern TNP [place] Centriole Pattern TNP [place] Nuclear Dot Pattern TNP [place] PCNA Pattern TNP [place] Nuclear Membr Pat TNP [place] Speckled Pattern TNP [place] Centromere Pattern TNP Double Strand DNA Ab 4 Tot Complement (CH50) > 60 Problem List - Problems (1) Abnormal chest CT Code(s): R93.89 - ABNORMAL FINDINGS ON DX IMAGING OF OTH BODY STRUCTURES (2) Fever Code(s): R50.9 - FEVER, UNSPECIFIED (3) GERD (gastroesophageal reflux disease) Code(s): K21.9 - GASTRO-ESOPHAGEAL REFLUX DISEASE WITHOUT ESOPHAGITIS (4) H/O parotidectomy Code(s): Z90.49 - ACQUIRED ABSENCE OF OTHER SPECIFIED PARTS OF DIGESTIVE TRACT (5) HLD (hyperlipidemia) Code(s): E78.5 - HYPERLIPIDEMIA, UNSPECIFIED (6) HTN (hypertension) Code(s): I10 - ESSENTIAL (PRIMARY) HYPERTENSION (7) Hypothyroid Code(s): E03.9 - HYPOTHYROIDISM, UNSPECIFIED (8) Lupus (systemic lupus erythematosus) Code(s): M32.9 - SYSTEMIC LUPUS ERYTHEMATOSUS, UNSPECIFIED (9) Pneumonia Code(s): J18.9 - PNEUMONIA, UNSPECIFIED ORGANISM Qualifiers: Pneumonia type: due to unspecified organism Laterality: bilateral Lung location: lower lobe of lung Qualified Code(s): J18.1 - Lobar pneumonia, unspecified organism IMP FEVER WORSENING DIFFUSE BILATERAL GROUND GLASS INFILTRATES LIKELY INFLAMMATORY , ? INFECTIOUS MEDIASTINAL,HILAR ADENOPATHY LIKELY REACTIVE INTERSTITIAL LUNG DISEASE: RO SARCOIDOSIS (?) SLE RA S/P THYROIDECTOMY S/P PARA-THYROIDECTOMY S/P L PAROTIDECTOMY H/O PULMONARY NODULES BENIGN SMOKER PLAN ABX PER ID FOLLOW CULTURES INHALED BRONCHODILATORS STEROIDS F/U CHEST CT OUTPATIENT: WILL LIKELY NEED WEDGE RESECTION TO FURTHER DELINEATE HER ILD FOLLOW UP PENDING SEROLOGY SMOKING CESSATION COUNSELED DR GIRALDO
[2018-12-11] MEDS ORDERED: MELATONIN 5 MG TABLETS PO PRN (11:04)
--- NOTE | 2018-12-11 12:29 | CON.CARD ---
Consult Consult Specialty:: Cardiology Referred by:: Dr. Yoon Reason for Consultation:: HTN - History of Present Illness Chief Complaint: fever, chills, sob History of Present Illness: 63 year old woman with a pmh of RA, lupus, L partoidectomy (3 months ago), L lung nodules removed (benign), HTN, HLD, and hypothyroidism admitted with fever , SOB, Chills and being treated for PNA. Noted to have uncontrolled HTN. pt seen and examined today in nad. and discussed with her daughter on the phone. pt states she has had uncontrolled HTN for a long time. states it often runs in the 180smmHg systolic. She is followed with her PMD Dr. Vidales. states she has only been on Losartan 100mg daily for a long time. denies being on other meds in the past. states she had a cardiac cath several years ago that was normal, done at [facility] and a stress test and echo done 1 year ago at [facility] that was normal. states she has chronic chest pain with no cardiac source identified in the past. no new chest pain recently. - History Source History Provided By: Patient, Family Member Limitations to Obtaining History: No Limitations - Past Medical History Cardio/Vascular: Yes: HTN, Hyperlipdemia Pulmonary: Yes: Other (Left Lung nodule ( removed benign)) Rheumatology: Yes: Lupus, Rheumatoid Arthritis Endocrine: Yes: Hypothyroidism - Alcohol/Substance Use Hx Alcohol Use: No History of Substance Use: reports: None - Smoking History Smoking history: Current every day smoker Have you smoked in the past 12 months: Yes Aproximately how many cigarettes per day: 10 - Social History History of Recent Travel: No Home Medications - Allergies Allergies/Adverse Reactions: Allergies Allergy/AdvReac Type Severity Reaction Status Date / Time aspirin Allergy Severe Verified 09/21/18 11:11 ketorolac [From Toradol] Allergy Severe Verified 09/21/18 11:11 plastic tape Allergy Mild Rash Uncoded 12/08/18 00:53 - Home Medications Home Medications: Ambulatory Orders Atorvastatin Ca [Lipitor] 40 mg PO DAILY 09/20/18 Folic Acid 1 mg PO DAILY 09/20/18 Losartan Potassium 100 mg PO DAILY 09/20/18 Pantoprazole Sodium 40 mg PO DAILY 09/20/18 Prasugrel HCl 5 mg PO DAILY 09/20/18 Rosuvastatin Calcium 40 mg PO DAILY 09/20/18 Acetaminophen/Diphenhydramine [Tylenol Pm Ex-Strength Caplet] 2 tab PO HS Cholecalciferol (Vitamin D3) [Vitamin D3] 50,000 unit PO WEEKLY 12/07/18 Ezetimibe 10 mg PO DAILY 12/07/18 Levothyroxine Sodium 175 mcg PO DAILY 12/07/18 Pregabalin [Lyrica -] 75 mg PO TID 12/07/18 Family Disease History - Family Disease History Family Disease History: Diabetes: Brother (Brain tumor, Breast Ca), CA: Brother Review of Systems - Review of Systems Constitutional: reports: Chills, Fever, Weakness. denies: No Symptoms, Diaphoresis, Lethargy, Loss of Appetite, Malaise, Night Sweats, Unintentional Wgt. Loss, Other Eyes: denies: No Symptoms, Blind Spots, Blurred Vision, Double Vision, Eye Pain , Floaters, Photophobia, Recent Change in Vision, Other HENT: denies: No Symptoms, Difficult Swallowing, Ear Discharge, Ear Pain, Epistaxis, Gingival Bleeding, Hearing Loss, Mouth Swelling, Nasal Congestion, Ocular Prosthesis, Throat Pain, Toothache, Ringing in Ears, Other Neck: denies: No Symptoms, Decreased ROM, Lumps, Pain on Movement, Stiffness, Swollen Glands, Tenderness, Other Cardiovascular: reports: Chest Pain. denies: No Symptoms, Edema, Palpitations, Shortness of Breath, Other Respiratory: denies: No Symptoms, Cough, Exercise Intolerance, Hemoptysis, Orthopnea, PND, Snoring, SOB, SOB on Exertion, Wheezing, Other Gastrointestinal: denies: No Symptoms, Abdominal Pain, Bloating, Constipation, Diarrhea, Dysphagia, Indigestion, Melena, Nausea, Rectal Bleeding, Vomiting, Vomiting Blood, Other Genitourinary: denies: No Symptoms, Burning, Discharge, Dysuria, Flank Pain, Frequency, Hematuria, Incontinence, Lesions, Menses, Pain, Testicular Mass, Testicular Pain, Testicular Swelling, Urgency, Vaginal Bleeding, Other Breasts: denies: No Symptoms Reported, See HPI, Breast Implants, Discharge from Nipple, Lumps, Pain, Skin Changes, Other Musculoskeletal: denies: No Symptoms, Back Pain, Crepitus, Decreased ROM, Extremity Pain, Joint Pain, Joint Swelling, Muscle Pain, Muscle Cramps, Muscle Weakness, Other Integumentary: denies: No Symptoms, Blister, Bruising, Change in Color, Eczema, Erythema, Incision, Lesions, Lump, Pallor, Pruritis, Rash, Wound, Other Neurological: denies: No Symptoms, Change in LOC, Change in Speech, Confusion, Dizziness, Headache, Incoordination, Numbness, Parasthesia, Pre-Existing Deficit , Seizure, Syncope, Tremors, Unsteady Gait, Weakness, Other Endocrine: denies: No Symptoms, Excessive Sweating, Flushing, Increased Hunger, Increased Thirst, Intolerance to Cold, Intolerance to Heat, Unexplained Weight Gain, Unexplained Weight Loss, Other Hematology/Lymphatic: denies: No Symptoms, Easily Bruised, Excessive Bleeding, Swollen Glands, Other Psychiatric: denies: No Symptoms, Altered Sleep Pattern, Anxiety, Depression, Hallucinations, Panic, Paranoia, Suicidal, Other - Risk Factors Known Risk Factors: Yes: Hypercholesterolemia, Hypertension Vital Signs: Vital Signs Temperature 97.9 F 12/11/18 09:00 Pulse Rate 58 L 12/11/18 09:00 Respiratory Rate 18 12/11/18 09:00 Blood Pressure 187/87 H 12/11/18 09:00 O2 Sat by Pulse Oximetry (%) 98 12/11/18 09:00 Constitutional: Yes: No Distress, Calm Eyes: Yes: Conjunctiva Clear, EOM Intact HENT: Yes: Atraumatic, Normocephalic Neck: Yes: Supple, Trachea Midline Respiratory: Yes: Regular, CTA Bilaterally. No: Rales, Rhonchi, Wheezes Gastrointestinal: Yes: Normal Bowel Sounds, Soft. No: Distention, Tenderness Cardiovascular: Yes: Regular Rate and Rhythm. No: Bradycardia, Tachycardia, Pulse Irregular, Gallop, Rub, Varicosities JVD: No Carotid Bruit: No PMI: Non-Displaced Heart Sounds: Yes: S1, S2. No: Split S2, S3, S4, Clicks, Gallop, Rub, Bruit Murmur: No: Systolic Murmur, Diastolic Murmur Musculoskeletal: Yes: WNL Extremities: Yes: WNL Edema: Yes Edema: LLE: Trace, RLE: Trace Peripheral Pulses WNL: Yes Peripheral Pulses: 2+ Left Doralis Pedis, 2+ Right Dorsalis Pedis Neurological: Yes: Alert, Oriented Psychiatric: Yes: Alert, Oriented - Other Data Labs, Other Data: CBC, BMP 12/11/18 07:05 12/11/18 07:05 INR, PTT INR 1.05 (0.83-1.09) 12/06/18 20:35 sinus tach 102bpm Imaging - Results Chest X-ray: Report Reviewed, Image Reviewed EKG: Report Reviewed, Image Reviewed Other: Report Reviewed, Image Reviewed Assessment/Plan 63 year old woman with a pmh of RA, lupus, L partoidectomy (3 months ago), L lung nodules removed (benign), HTN, HLD, and hypothyroidism admitted with fever , SOB, Chills and being treated for PNA. Noted to have uncontrolled HTN. pt seen and examined today in nad. and discussed with her daughter on the phone. pt states she has had uncontrolled HTN for a long time. states it often runs in the 180smmHg systolic. She is followed with her PMD Dr. Vidales. states she has only been on Losartan 100mg daily for a long time. denies being on other meds in the past. states she had a cardiac cath several years ago that was normal, done at [facility] and a stress test and echo done 1 year ago at [facility] that was normal. states she has chronic chest pain with no cardiac source identified in the past. no new chest pain recently. HTN-chronic uncontrolled -cont Losartan 100mg daily for HTN and proteinurea -can start amlodipine 5mg daily -do not expect BP to normalize during this admission given longstanding uncontrolled htn -she will need close outpatient fup for re-evaluation and adjustment in meds Edema-mild b/l Le edema -likely due to third spacing given hypoalbuminemia -would not diurese for this Palpitations-reported intermittent palpitations -[facility] outpatient event monitor
[2018-12-11] MEDS: amLODIPine BESYLATE 5 MG TABLET (FP) PO SCH (13:05)
--- NOTE | 2018-12-11 14:03 | PN ---
Progress Note, Physician Chief Complaint: Pneumonia History of Present Illness: Previous notes and events reviewed awake and alert NAD sts breathing is better denies chest pain BP elevated this morning - Current Medication List Current Medications: Active Medications Acetaminophen (Tylenol -) 650 mg PO Q4H PRN PRN Reason: PAIN OR FEVER Last Admin: 12/10/18 19:48 Dose: 650 mg Al Hydroxide/Mg Hydroxide (Mylanta Oral Suspension -) 30 ml PO Q6H PRN PRN Reason: DYSPEPSIA Last Admin: 12/09/18 16:06 Dose: 30 ml Albuterol Sulfate (Ventolin 0.083% Nebulizer Soln -) 1 amp NEB RQID PRN PRN Reason: SHORT OF BREATH/WHEEZING Amlodipine Besylate (Norvasc -) 5 mg PO DAILY [facility] Last Admin: 12/11/18 13:05 Dose: 5 mg Ezetimibe (Zetia -) 10 mg PO DAILY MATTHEW Last Admin: 12/11/18 09:11 Dose: 10 mg Heparin Sodium (Porcine) (Heparin -) 5,000 unit SQ BID MATTHEW Last Admin: 12/11/18 09:10 Dose: 5,000 unit Ceftriaxone Sodium 2 gm/ (Dextrose) 100 mls @ 200 mls/hr IVPB DAILY MATTHEW; Protocol Last Admin: 12/11/18 09:09 Dose: 200 mls/hr Azithromycin (Zithromax 500mg Ivpb (Pre-Docked)) 500 mg in 250 mls @ 250 mls/ hr IVPB DAILY MATTHEW Last Admin: 12/11/18 09:09 Dose: 250 mls/hr Ipratropium [place] (Atrovent 0.02% Nebulizer -) 1 amp NEB QIDR PRN PRN Reason: WHEEZING Levothyroxine Sodium 125 mcg/ (Levothyroxine Sodium 50 mcg) 175 mcg PO ACBK MATTHEW Last Admin: 12/11/18 06:25 Dose: 175 mcg Losartan Potassium (Cozaar -) 100 mg PO DAILY [facility]W Last Admin: 12/11/18 09:10 Dose: 100 mg Melatonin (Melatonin) 10 mg PO HS PRN PRN Reason: INSOMNIA Methylprednisolone Sodium Succinate (Solu-Medrol -) 40 mg IVPUSH Q8H-IV [facility]W Last Admin: 12/11/18 09:10 Dose: 40 mg Nicotine (Nicoderm Patch -) 21 mg TD DAILY [facility]W Last Admin: 12/11/18 09:10 Dose: 21 mg Non-Formulary Medication (Cholecalciferol (Vitamin D3) [Vitamin D3]) 50,000 unit PO WEEKLY [facility] Pantoprazole Sodium (Protonix -) 40 mg PO DAILY [facility] Last Admin: 12/11/18 09:10 Dose: 40 mg Prasugrel (Effient -) 5 mg PO DAILY [facility] Last Admin: 12/11/18 09:11 Dose: 5 mg Pregabalin 50 mg/ Pregabalin (25 mg) 75 mg PO TID [facility] Last Admin: 12/11/18 13:05 Dose: 75 mg Rosuvastatin Calcium (Crestor -) 40 mg PO HS [facility] Last Admin: 12/10/18 22:01 Dose: 40 mg - Objective Vital Signs: Vital Signs Temperature 97.9 F 12/11/18 09:00 Pulse Rate 58 L 12/11/18 09:00 Respiratory Rate 18 12/11/18 09:00 Blood Pressure 187/87 H 12/11/18 09:00 O2 Sat by Pulse Oximetry (%) 98 12/11/18 09:00 Constitutional: Yes: No Distress, Calm Eyes: Yes: Conjunctiva Clear HENT: Yes: Atraumatic Cardiovascular: Yes: Regular Rate and Rhythm Respiratory: Yes: Regular, Diminished Gastrointestinal: Yes: Normal Bowel Sounds, Soft Musculoskeletal: Yes: WNL Extremities: Yes: WNL Edema: No Neurological: Yes: Alert, Oriented Psychiatric: Yes: Alert, Oriented Labs: CBC, BMP 12/11/18 07:05 12/11/18 07:05 INR, PTT INR 1.05 (0.83-1.09) 12/06/18 20:35 Problem List - Problems (1) Connective tissue disease Assessment/Plan: -Rheumatology on board -KENYATTA positive, KENYATTA Homogeneous Pattern 1:320 Code(s): M35.9 - SYSTEMIC INVOLVEMENT OF CONNECTIVE TISSUE, UNSPECIFIED (2) GERD (gastroesophageal reflux disease) Assessment/Plan: -Pantoprazole Code(s): K21.9 - GASTRO-ESOPHAGEAL REFLUX DISEASE WITHOUT ESOPHAGITIS (3) HLD (hyperlipidemia) Assessment/Plan: -Rosuvastatin, Zetia Code(s): E78.5 - HYPERLIPIDEMIA, UNSPECIFIED (4) HTN (hypertension) Assessment/Plan: -Losartan -add Amlodipine 5mg daily -Cardiology on board -low Na diet Code(s): I10 - ESSENTIAL (PRIMARY) HYPERTENSION (5) Hypothyroid Assessment/Plan: -Levothyroxine Code(s): E03.9 - HYPOTHYROIDISM, UNSPECIFIED (6) Interstitial lung disease Assessment/Plan: -Pulm on board -O2 via NC -keep SpO2 >90% -Chest CT scan shows diffuse groundglass opacification of the lung sanchez most pronounced in the RUL, possibility of acute pneumonitis and/or more chronic infalmmatory/infectious process, stable bibasilar pulmonary nodules, mediastinal and bilateral hilar lymphadenopathy -failed pre/post ambulatory SpO2, will need home O2 Code(s): J84.9 - INTERSTITIAL PULMONARY DISEASE, UNSPECIFIED (7) Pneumonia Assessment/Plan: -Pulm on board -CXR shows congestive/infiltrative changes -no leukocytosis -afebrile -BC neg -Urine Legionella neg -Ceftriaxone, Azithromycin -IV Medrol -Chest CT scan shows diffuse groundglass opacification of the lung sanchez most pronounced in the RUL, possibility of acute pneumonitis and/or more chronic infalmmatory/infectious process, stable bibasilar pulmonary nodules, mediastinal and bilateral hilar lymphadenopathy -O2 via NC -keep SpO2 >90% -failed pre/post ambulatory SpO2, will need home O2 Code(s): J18.9 - PNEUMONIA, UNSPECIFIED ORGANISM Qualifiers: Pneumonia type: due to unspecified organism Laterality: bilateral Lung location: lower lobe of lung Qualified Code(s): J18.1 - Lobar pneumonia, unspecified organism (8) Sepsis Assessment/Plan: -CXR shows congestive/infiltrative changes -leukocytosis -afebrile -BC neg -UC neg -Urine Legionella neg -Ceftriaxone, Azithromycin -Chest CT scan shows diffuse groundglass opacification of the lung sanchez most pronounced in the RUL, possibility of acute pneumonitis and/or more chronic infalmmatory/infectious process, stable bibasilar pulmonary nodules, mediastinal and bilateral hilar lymphadenopathy -LA 1.8 Code(s): A41.9 - SEPSIS, UNSPECIFIED ORGANISM (9) Proteinuria Assessment/Plan: -Renal on board -Renal biopsy as outpatient -UA shows 4+ Code(s): R80.9 - PROTEINURIA, UNSPECIFIED Assessment/Plan see problem list dvt ppx
[2018-12-11 15:07] LABS: ATYPICAL pANCA <1:20 titer (Neg:<1:20); C-ANCA <1:20 titer (Neg:<1:20)
--- NOTE | 2018-12-11 16:17 | PN ---
Progress Note, Physician History of Present Illness: Pt seen and examined at bedside. She is awake and alert. She denies shortness of breath. - Current Medication List Current Medications: Active Medications Acetaminophen (Tylenol -) 650 mg PO Q4H PRN PRN Reason: PAIN OR FEVER Last Admin: 12/10/18 19:48 Dose: 650 mg Al Hydroxide/Mg Hydroxide (Mylanta Oral Suspension -) 30 ml PO Q6H PRN PRN Reason: DYSPEPSIA Last Admin: 12/09/18 16:06 Dose: 30 ml Albuterol Sulfate (Ventolin 0.083% Nebulizer Soln -) 1 amp NEB RQID PRN PRN Reason: SHORT OF BREATH/WHEEZING Amlodipine Besylate (Norvasc -) 5 mg PO DAILY [facility] Last Admin: 12/11/18 13:05 Dose: 5 mg Ezetimibe (Zetia -) 10 mg PO DAILY [facility] Last Admin: 12/11/18 09:11 Dose: 10 mg Heparin Sodium (Porcine) (Heparin -) 5,000 unit SQ BID [facility] Last Admin: 12/11/18 09:10 Dose: 5,000 unit Ceftriaxone Sodium 2 gm/ (Dextrose) 100 mls @ 200 mls/hr IVPB DAILY [facility]; Protocol Last Admin: 12/11/18 09:09 Dose: 200 mls/hr Ipratropium [place] (Atrovent 0.02% Nebulizer -) 1 amp NEB QIDR PRN PRN Reason: WHEEZING Levothyroxine Sodium 125 mcg/ (Levothyroxine Sodium 50 mcg) 175 mcg PO ACBK [facility] Last Admin: 12/11/18 06:25 Dose: 175 mcg Losartan Potassium (Cozaar -) 100 mg PO DAILY [facility] Last Admin: 12/11/18 09:10 Dose: 100 mg Melatonin (Melatonin) 10 mg PO HS PRN PRN Reason: INSOMNIA Methylprednisolone Sodium Succinate (Solu-Medrol -) 40 mg IVPUSH Q8H-IV [facility] Last Admin: 12/11/18 09:10 Dose: 40 mg Nicotine (Nicoderm Patch -) 21 mg TD DAILY [facility] Last Admin: 12/11/18 09:10 Dose: 21 mg Non-Formulary Medication (Cholecalciferol (Vitamin D3) [Vitamin D3]) 50,000 unit PO WEEKLY [facility] Pantoprazole Sodium (Protonix -) 40 mg PO DAILY [facility] Last Admin: 12/11/18 09:10 Dose: 40 mg Prasugrel (Effient -) 5 mg PO DAILY [facility] Last Admin: 12/11/18 09:11 Dose: 5 mg Pregabalin 50 mg/ Pregabalin (25 mg) 75 mg PO TID [facility] Last Admin: 12/11/18 13:05 Dose: 75 mg Rosuvastatin Calcium (Crestor -) 40 mg PO HS [facility] Last Admin: 12/10/18 22:01 Dose: 40 mg - Objective Vital Signs: Vital Signs Temperature 98.5 F 12/11/18 14:14 Pulse Rate 54 L 12/11/18 14:14 Respiratory Rate 20 12/11/18 14:14 Blood Pressure 168/70 12/11/18 14:14 O2 Sat by Pulse Oximetry (%) 98 12/11/18 09:00 Constitutional: Yes: Calm Eyes: Yes: Conjunctiva Clear HENT: Yes: Atraumatic Neck: Yes: Supple Cardiovascular: Yes: S1, S2 Respiratory: Yes: CTA Bilaterally Gastrointestinal: Yes: Normal Bowel Sounds, Soft Genitourinary: Yes: WNL Musculoskeletal: Yes: WNL Edema: No Neurological: Yes: Oriented Psychiatric: Yes: Oriented Labs: CBC, BMP 12/11/18 07:05 12/11/18 07:05 INR, PTT INR 1.05 (0.83-1.09) 12/06/18 20:35 Problem List - Problems (1) Pneumonia Code(s): J18.9 - PNEUMONIA, UNSPECIFIED ORGANISM Qualifiers: Pneumonia type: due to unspecified organism Laterality: bilateral Lung location: lower lobe of lung Qualified Code(s): J18.1 - Lobar pneumonia, unspecified organism (2) Proteinuria Code(s): R80.9 - PROTEINURIA, UNSPECIFIED Assessment/Plan Current Medications Generic Name Dose Route Start Last Admin Trade Name Freq PRN Reason Stop Dose Admin Acetaminophen 650 mg 12/07/18 01:31 12/10/18 19:48 Tylenol - PO 650 mg Q4H PRN Administration PAIN OR FEVER Al Hydroxide/Mg Hydroxide 30 ml 12/08/18 17:12 12/09/18 16:06 Mylanta Oral Suspension - PO 30 ml Q6H PRN Administration DYSPEPSIA Albuterol Sulfate 1 amp 12/07/18 01:31 Ventolin 0.083% Nebulizer Soln - NEB RQID PRN SHORT OF BREATH/WHEEZING Amlodipine Besylate 5 mg 12/11/18 12:30 12/11/18 13:05 Norvasc - PO 5 mg DAILY [facility] Administration Ezetimibe 10 mg 12/07/18 10:00 12/11/18 09:11 Zetia - PO 10 mg DAILY [facility] Administration Heparin Sodium (Porcine) 5,000 unit 12/07/18 10:00 12/11/18 09:10 Heparin - SQ 5,000 unit BID [facility] Administration Ceftriaxone Sodium 2 gm/ 100 mls @ 200 mls/hr 12/08/18 10:00 12/11/18 09:09 Dextrose IVPB 200 mls/hr DAILY [facility] Administration Protocol Ipratropium [place] 1 amp 12/07/18 01:40 Atrovent 0.02% Nebulizer - NEB QIDR PRN WHEEZING Levothyroxine Sodium 125 mcg/ 175 mcg 12/07/18 07:00 12/11/18 06:25 Levothyroxine Sodium 50 mcg PO 175 mcg ACBK [facility] Administration Losartan Potassium 100 mg 12/07/18 10:00 12/11/18 09:10 Cozaar - PO 100 mg DAILY [facility] Administration Melatonin 10 mg 12/11/18 11:04 Melatonin PO HS PRN INSOMNIA Methylprednisolone Sodium Succinate 40 mg 12/08/18 11:00 12/11/18 09:10 Solu-Medrol - IVPUSH 40 mg Q8H-IV [facility] Administration Nicotine 21 mg 12/07/18 12:45 12/11/18 09:10 Nicoderm Patch - TD 21 mg DAILY [facility] Administration Non-Formulary Medication 50,000 unit 12/07/18 01:30 Cholecalciferol (Vitamin D3) [Vitamin D3] PO WEEKLY [facility] Pantoprazole Sodium 40 mg 12/07/18 10:00 12/11/18 09:10 Protonix - PO 40 mg DAILY [facility] Administration Prasugrel 5 mg 12/07/18 10:00 12/11/18 09:11 Effient - PO 5 mg DAILY [facility] Administration Pregabalin 50 mg/ Pregabalin 75 mg 12/07/18 06:00 12/11/18 13:05 25 mg PO 75 mg TID [facility] Administration Rosuvastatin Calcium 40 mg 12/07/18 22:00 12/10/18 22:01 Crestor - PO 40 mg HS [facility] Administration Laboratory Tests 12/08/18 12/08/18 07:00 07:00 OPAL Screen Positive H OPAL Homogeneous Pattern 1:320 H c-ANCA <1:20 Proteinase 3 (PR3) <3.5 p-ANCA <1:20 Atypical p-ANCA <1:20 Myeloperoxidase Ab <9.0 Double Strand DNA Ab 4 Tot Complement (CH50) > 60 Impression 1. CKD 2. Proteinuria 3. pna 4. gerd 5. hld 6. hypothyroidism 7. SLE 8. positive opal Plan - repeat ua and prt to oxidation engineer ratio - unable to get kidney biopsy while on effient, it is not clear why she is on effient - cardio eval - can get kidney biopsy as outpt if she is able to stop effient - discussed with pt and with medical team
--- NOTE | 2018-12-11 16:33 | PN ---
Progress Note (short form) - Note Progress Note: afebrile, feels improved rheumatology consult noted -no RA, unlikely lupus, hissory of membranous nephropathy, history of autoimmune hepatitis plan for outpt kidney biopsy Vital Signs Period Temp Pulse Resp BP Sys/Lopez Pulse Ox Last 24 Hr 97.8 F-98.5 F 54-59 18-22 130-187/70-87 97-98 cor-rrr lungs decreased bs at bases abd soft,nt ext no edema CBC, BMP 12/11/18 07:05 12/11/18 07:05 Laboratory Tests 12/08/18 12/08/18 12/11/18 07:00 07:00 07:05 AST 81 H ALT 80 H [place] Homogeneous Pattern 1:320 H c-ANCA <1:20 Proteinase 3 (PR3) <3.5 p-ANCA <1:20 Atypical p-ANCA <1:20 Myeloperoxidase Ab <9.[address] with increased patchy bilateral infiltrates, stable bibasilar pulmonary nodules (2018) and mediastinal adenopathy a/p fever/abnormal chest ct membranous nephropathy with proteinuria s/p vaccinations last week-shingrix /pneumovax history pulmonary nodule improved day #5 antibiotics now on iv steroids per pulmonary component ILD, ?sarcoid suspect she will need a lung biopsy abnl UA with proteinuria- for kidney biopsy rising lfts d/c zithromax- has finished 5 days can switch to ceftin repeat lfts in am Problem List - Problems (1) Fever Code(s): R50.9 - FEVER, UNSPECIFIED (2) Pneumonia Code(s): J18.9 - PNEUMONIA, UNSPECIFIED ORGANISM Qualifiers: Pneumonia type: due to unspecified organism Laterality: bilateral Lung location: lower lobe of lung Qualified Code(s): J18.1 - Lobar pneumonia, unspecified organism (3) Abnormal chest CT Code(s): R93.89 - ABNORMAL FINDINGS ON DX IMAGING OF OTH BODY STRUCTURES (4) Lupus (systemic lupus erythematosus) Code(s): M32.9 - SYSTEMIC LUPUS ERYTHEMATOSUS, UNSPECIFIED (5) Rheumatoid arthritis Code(s): M06.9 - RHEUMATOID ARTHRITIS, UNSPECIFIED
[2018-12-11 18:12] LABS: EPI CELLS 8.6 /HPF (0-5/HPF); HYALINE CASTS 10 /lpf (0-8); URINE APPEARANCE CLEAR; URINE BACTERIA 3.7 /hpf (NEGATIVE); URINE BILIRUBIN NEGATIVE (NEGATIVE); URINE COLOR YELLOW; URINE GLUCOSE (UA) TRACE (NEGATIVE); URINE KETONE NEGATIVE (NEGATIVE); URINE LEUK ESTERASE NEGATIVE (NEGATIVE); URINE NITRITE NEGATIVE (NEGATIVE); URINE PROTEIN 3+ (NEGATIVE); URINE UROBILINOGEN 0.2 mg/dL (0.2-1.0); URINE WBC 3 /hpf (0-5)
[2018-12-11 18:22] LABS: RATIO URIN PROTEIN/URIN CREAT 8.03 MG/DL
[2018-12-11 18:55] LABS: YEAST NEGATIVE (NEGATIVE)
[2018-12-11] MEDS: ROSUVASTATIN CA 20 MG TABLET (FP) PO SCH (21:53)
[2018-12-11] MEDS: CEFUROXIME AXETIL 500 MG TABLET PO SCH (21:53)
[2018-12-12] MEDS: methylPREDNISolone NA SUCC 40 MG/1 ML VIAL IVPUSH SCH ×3 (02:55→17:44)
[2018-12-12] MEDS ORDERED: amLODIPine BESYLATE 5 MG TABLET (FP) PO ONE (06:11)
[2018-12-12] MEDS ORDERED: PREGABALIN 50 MG CAPSULE ONE ×2 (06:23→13:39)
[2018-12-12] MEDS ORDERED: PREGABALIN 25 MG CAPSULE ONE ×2 (06:23→13:39)
[2018-12-12] MEDS ORDERED: LEVOTHYROXINE NA 125 MCG TABLET (FP) ONE (06:24)
[2018-12-12] MEDS ORDERED: LEVOTHYROXINE NA 50 MCG TABLET (FP) ONE (06:24)
[2018-12-12] MEDS: LEVOTHYROXINE 125 MCG, LEVOTHYROXINE 50 MCG PO SCH (06:26)
[2018-12-12] MEDS: PREGABALIN 50 MG, PREGABALIN 25 MG PO SCH ×2 (06:26→13:57)
[2018-12-12 08:34] LABS: BILIRUBIN,DIRECT 0.1 mg/dL (0.0-0.2); BILIRUBIN,TOTAL 0.5 mg/dL (0.2-1); TOT PROT 5.7 g/dl (6.4-8.2)
[2018-12-12] MEDS: NICOTINE 21 MG/24 HOURS TOPICAL PATCH TD SCH (09:46)
[2018-12-12] MEDS: amLODIPine BESYLATE 5 MG TABLET (FP) PO SCH (09:46)
[2018-12-12] MEDS: CEFUROXIME AXETIL 500 MG TABLET PO SCH (09:46)
[2018-12-12] MEDS: MAG HYDROX/AL HYDROX/SIMETH 30 ML UNIT-DOSE CUP PO PRN (09:46)
[2018-12-12] MEDS: LOSARTAN POTASSIUM 50 MG TABLET (FP) PO SCH (09:46)
[2018-12-12] MEDS: PANTOPRAZOLE 40 MG TABLET (FP) PO SCH (09:46)
[2018-12-12] MEDS: EZETIMIBE 10 MG TABLET (FP) PO SCH (09:47)
[2018-12-12] MEDS: PRASUGREL HCL 5 MG TAB PO SCH (09:47)
[2018-12-12] MEDS: HEPARIN NA (PORCINE) 5,000 UNITS/ML 1ML VIAL SQ SCH (09:47)
--- NOTE | 2018-12-12 11:14 | PN ---
Progress Note, Physician Chief Complaint: The patient appears comfortable at the time of exam. He reports no chest pain, shortness of breath or palpitation. History of Present Illness: 63 year old woman with a PMHx of HTN, HLD, and hypothyroidismHTN, HLD, hypothyroidism, RA, lupus, s/p left partoidectomy (3 months ago), left lung nodules removed (benign), admitted with fever, SOB, chills and being treated for PNA. Noted to have uncontrolled HTN. ECG 12/06/18: sinus rhythm, LAD, incomplete RBBB. Echo 12/07/18: Normal LV size, wall motion and systolic function. LVEF 55-60%. Normal RV. Normal LA and RA in size. No significant valvular abnormalities. - Current Medication List Current Medications: Active Medications Acetaminophen (Tylenol -) 650 mg PO Q4H PRN PRN Reason: PAIN OR FEVER Last Admin: 12/10/18 19:48 Dose: 650 mg Al Hydroxide/Mg Hydroxide (Mylanta Oral Suspension -) 30 ml PO Q6H PRN PRN Reason: DYSPEPSIA Last Admin: 12/12/18 09:46 Dose: 30 ml Albuterol Sulfate (Ventolin 0.083% Nebulizer Soln -) 1 amp NEB RQID PRN PRN Reason: SHORT OF BREATH/WHEEZING Amlodipine Besylate (Norvasc -) 5 mg PO DAILY [facility] Last Admin: 12/12/18 09:46 Dose: 5 mg Cefuroxime Axetil (Ceftin -) 500 mg PO BID [facility] Last Admin: 12/12/18 09:46 Dose: 500 mg Ezetimibe (Zetia -) 10 mg PO DAILY [facility] Last Admin: 12/12/18 09:47 Dose: 10 mg Heparin Sodium (Porcine) (Heparin -) 5,000 unit SQ BID [facility] Last Admin: 12/12/18 09:47 Dose: 5,000 unit Ipratropium [place] (Atrovent 0.02% Nebulizer -) 1 amp NEB QIDR PRN PRN Reason: WHEEZING Levothyroxine Sodium 125 mcg/ (Levothyroxine Sodium 50 mcg) 175 mcg PO ACBK [facility] Last Admin: 12/12/18 06:26 Dose: 175 mcg Losartan Potassium (Cozaar -) 100 mg PO DAILY [facility] Last Admin: 12/12/18 09:46 Dose: 100 mg Melatonin (Melatonin) 10 mg PO HS PRN PRN Reason: INSOMNIA Last Admin: 12/11/18 21:53 Dose: 10 mg Methylprednisolone Sodium Succinate (Solu-Medrol -) 40 mg IVPUSH Q8H-IV [facility] Last Admin: 12/12/18 09:46 Dose: 40 mg Nicotine (Nicoderm Patch -) 21 mg TD DAILY [facility] Last Admin: 12/12/18 09:46 Dose: 21 mg Non-Formulary Medication (Cholecalciferol (Vitamin D3) [Vitamin D3]) 50,000 unit PO WEEKLY [facility] Pantoprazole Sodium (Protonix -) 40 mg PO DAILY [facility] Last Admin: 12/12/18 09:46 Dose: 40 mg Prasugrel (Effient -) 5 mg PO DAILY [facility] Last Admin: 12/12/18 09:47 Dose: 5 mg Pregabalin 50 mg/ Pregabalin (25 mg) 75 mg PO TID [facility] Last Admin: 12/12/18 06:26 Dose: 75 mg Rosuvastatin Calcium (Crestor -) 40 mg PO HS [facility] Last Admin: 12/11/18 21:53 Dose: 40 mg - Objective Vital Signs: Vital Signs Temperature 97.8 F 12/12/18 06:00 Pulse Rate 46 L 12/12/18 07:44 Respiratory Rate 20 12/12/18 07:44 Blood Pressure 182/76 H 12/12/18 07:44 O2 Sat by Pulse Oximetry (%) 98 12/11/18 21:00 General: Well developed. Well nourished. No acute distress. Head: Normocephalic. Atraumatic, Eyes: PERRLA, EOMI. Sclerae anicteric. Conjunctivae clear. Neck: Supple. No JVD. No bruits. Heart: Normal S1, S2: Regular rhythm and rate. No murmur. No gallop or rub. Lungs: Symmetrical air entry. Clear to auscultation. No crackle. No wheezing or rhonchi. Abdomen: Soft. Bowel sound positive. Non tender. No masses. Extremities: 1+ edema. No clubbing or cyanosis. PD 2+, equal bilaterally. Neuro: Intact, no focal findings. AAO X3 Labs: CBC, BMP 12/11/18 07:05 12/11/18 07:05 INR, PTT INR 1.05 (0.83-1.09) 12/06/18 20:35 Assessment/Plan 63 year old woman with a PMHx of HTN, HLD, and hypothyroidismHTN, HLD, hypothyroidism, RA, lupus, s/p left partoidectomy (3 months ago), left lung nodules removed (benign), admitted 12/06/18 with fever, SOB, chills and being treated for PNA. Noted to have uncontrolled HTN. ECG 12/06/18: sinus rhythm, LAD, incomplete RBBB. Echo 12/07/18: Normal LV size, wall motion and systolic function. LVEF 55-60%. Normal RV. Normal LA and RA in size. No significant valvular abnormalities. 1) HTN-chronic uncontrolled -Continue Losartan 100mg daily for HTN and proteinurea -Amlodipine 5mg daily added. -May start Chlorthalidone 25 mg daily. -Do not expect BP to normalize during this admission given longstanding uncontrolled hypertension. -Avoid beta-blockers and non-dihydropyridine calcium channel blockers due to bradycardia. -She will need close outpatient fup for re-evaluation and adjustment in meds 2) Edema-mild b/l Le edema -Likely due to third spacing given hypoalbuminemia -Chlorthalidone 25 mg daily would be helpful for her leg edema. 3) Palpitations-reported intermittent palpitations -Outpatient event monitor. Please do not hesitate to call us for re-consult at any time if any further questions or additional issue arises regarding this patient.
--- NOTE | 2018-12-12 12:53 | PN ---
Progress Note, Physician History of Present Illness: Pt seen and examined at bedside. She is awake and alert. She feels that her breathing is improved. - Current Medication List Current Medications: Active Medications Acetaminophen (Tylenol -) 650 mg PO Q4H PRN PRN Reason: PAIN OR FEVER Last Admin: 12/10/18 19:48 Dose: 650 mg Al Hydroxide/Mg Hydroxide (Mylanta Oral Suspension -) 30 ml PO Q6H PRN PRN Reason: DYSPEPSIA Last Admin: 12/12/18 09:46 Dose: 30 ml Albuterol Sulfate (Ventolin 0.083% Nebulizer Soln -) 1 amp NEB RQID PRN PRN Reason: SHORT OF BREATH/WHEEZING Amlodipine Besylate (Norvasc -) 5 mg PO DAILY [facility] Last Admin: 12/12/18 09:46 Dose: 5 mg Cefuroxime Axetil (Ceftin -) 500 mg PO BID [facility] Last Admin: 12/12/18 09:46 Dose: 500 mg Ezetimibe (Zetia -) 10 mg PO DAILY [facility] Last Admin: 12/12/18 09:47 Dose: 10 mg Heparin Sodium (Porcine) (Heparin -) 5,000 unit SQ BID [facility] Last Admin: 12/12/18 09:47 Dose: 5,000 unit Ipratropium [place] (Atrovent 0.02% Nebulizer -) 1 amp NEB QIDR PRN PRN Reason: WHEEZING Levothyroxine Sodium 125 mcg/ (Levothyroxine Sodium 50 mcg) 175 mcg PO ACBK [facility] Last Admin: 12/12/18 06:26 Dose: 175 mcg Losartan Potassium (Cozaar -) 100 mg PO DAILY [facility] Last Admin: 12/12/18 09:46 Dose: 100 mg Melatonin (Melatonin) 10 mg PO HS PRN PRN Reason: INSOMNIA Last Admin: 12/11/18 21:53 Dose: 10 mg Methylprednisolone Sodium Succinate (Solu-Medrol -) 40 mg IVPUSH Q8H-IV [facility] Last Admin: 12/12/18 09:46 Dose: 40 mg Nicotine (Nicoderm Patch -) 21 mg TD DAILY [facility] Last Admin: 12/12/18 09:46 Dose: 21 mg Non-Formulary Medication (Cholecalciferol (Vitamin D3) [Vitamin D3]) 50,000 unit PO WEEKLY [facility] Pantoprazole Sodium (Protonix -) 40 mg PO DAILY [facility] Last Admin: 12/12/18 09:46 Dose: 40 mg Prasugrel (Effient -) 5 mg PO DAILY [facility] Last Admin: 12/12/18 09:47 Dose: 5 mg Pregabalin 50 mg/ Pregabalin (25 mg) 75 mg PO TID [facility] Last Admin: 12/12/18 06:26 Dose: 75 mg Rosuvastatin Calcium (Crestor -) 40 mg PO HS [facility] Last Admin: 12/11/18 21:53 Dose: 40 mg - Objective Vital Signs: Vital Signs Temperature 97.3 F L 12/12/18 10:00 Pulse Rate 56 L 12/12/18 10:00 Respiratory Rate 20 12/12/18 10:00 Blood Pressure 142/59 L 12/12/18 10:00 O2 Sat by Pulse Oximetry (%) 98 12/11/18 21:00 Constitutional: Yes: Calm Eyes: Yes: Conjunctiva Clear HENT: Yes: Atraumatic Neck: Yes: Supple Cardiovascular: Yes: S1, S2 Respiratory: Yes: CTA Bilaterally Gastrointestinal: Yes: Soft Genitourinary: Yes: WNL Musculoskeletal: Yes: WNL Edema: No Neurological: Yes: Oriented Psychiatric: Yes: Oriented Labs: CBC, BMP 12/11/18 07:05 12/11/18 07:05 INR, PTT INR 1.05 (0.83-1.09) 12/06/18 20:35 Problem List - Problems (1) Pneumonia Code(s): J18.9 - PNEUMONIA, UNSPECIFIED ORGANISM Qualifiers: Pneumonia type: due to unspecified organism Laterality: bilateral Lung location: lower lobe of lung Qualified Code(s): J18.1 - Lobar pneumonia, unspecified organism (2) Proteinuria Code(s): R80.9 - PROTEINURIA, UNSPECIFIED Assessment/Plan Current Medications Generic Name Dose Route Start Last Admin Trade Name Freq PRN Reason Stop Dose Admin Acetaminophen 650 mg 12/07/18 01:31 12/10/18 19:48 Tylenol - PO 650 mg Q4H PRN Administration PAIN OR FEVER Al Hydroxide/Mg Hydroxide 30 ml 12/08/18 17:12 12/12/18 09:46 Mylanta Oral Suspension - PO 30 ml Q6H PRN Administration DYSPEPSIA Albuterol Sulfate 1 amp 12/07/18 01:31 Ventolin 0.083% Nebulizer Soln - NEB RQID PRN SHORT OF BREATH/WHEEZING Amlodipine Besylate 5 mg 12/11/18 12:30 12/12/18 09:46 Norvasc - PO 5 mg DAILY [facility] Administration Cefuroxime Axetil 500 mg 12/11/18 22:00 12/12/18 09:46 Ceftin - PO 500 mg BID [facility] Administration Ezetimibe 10 mg 12/07/18 10:00 12/12/18 09:47 Zetia - PO 10 mg DAILY [facility] Administration Heparin Sodium (Porcine) 5,000 unit 12/07/18 10:00 12/12/18 09:47 Heparin - SQ 5,000 unit BID [facility] Administration Ipratropium [place] 1 amp 12/07/18 01:40 Atrovent 0.02% Nebulizer - NEB QIDR PRN WHEEZING Levothyroxine Sodium 125 mcg/ 175 mcg 12/07/18 07:00 12/12/18 06:26 Levothyroxine Sodium 50 mcg PO 175 mcg ACBK [facility] Administration Losartan Potassium 100 mg 12/07/18 10:00 12/12/18 09:46 Cozaar - PO 100 mg DAILY [facility] Administration Melatonin 10 mg 12/11/18 11:04 12/11/18 21:53 Melatonin PO 10 mg HS PRN Administration INSOMNIA Methylprednisolone Sodium Succinate 40 mg 12/08/18 11:00 12/12/18 09:46 Solu-Medrol - IVPUSH 40 mg Q8H-IV [facility] Administration Nicotine 21 mg 12/07/18 12:45 12/12/18 09:46 Nicoderm Patch - TD 21 mg DAILY [facility] Administration Non-Formulary Medication 50,000 unit 12/07/18 01:30 Cholecalciferol (Vitamin D3) [Vitamin D3] PO WEEKLY [facility] Pantoprazole Sodium 40 mg 12/07/18 10:00 12/12/18 09:46 Protonix - PO 40 mg DAILY [facility] Administration Prasugrel 5 mg 12/07/18 10:00 12/12/18 09:47 Effient - PO 5 mg DAILY [facility] Administration Pregabalin 50 mg/ Pregabalin 75 mg 12/07/18 06:00 12/12/18 06:26 25 mg PO 75 mg TID [facility] Administration Rosuvastatin Calcium 40 mg 12/07/18 22:00 12/11/18 21:53 Crestor - PO 40 mg HS [facility] Administration Laboratory Tests 12/11/18 17:15 Urine Protein 3+ H Urine Blood 2+ H Impression 1. CKD 2. Proteinuria 3. pna 4. gerd 5. hld 6. hypothyroidism 7. SLE 8. positive opal Plan - repeat ua reviewed - pt still with proteinuria - she will see cardio to see if effient can be held for renal biopsy - she will follow with Dr Oliver in the office - avoid nsaids - can get kidney biopsy as outpt if she is able to stop effient - discussed with pt
--- NOTE | 2018-12-12 14:04 | PN ---
Progress Note, Physician - Current Medication List Current Medications: Active Medications Acetaminophen (Tylenol -) 650 mg PO Q4H PRN PRN Reason: PAIN OR FEVER Last Admin: 12/10/18 19:48 Dose: 650 mg Al Hydroxide/Mg Hydroxide (Mylanta Oral Suspension -) 30 ml PO Q6H PRN PRN Reason: DYSPEPSIA Last Admin: 12/12/18 09:46 Dose: 30 ml Albuterol Sulfate (Ventolin 0.083% Nebulizer Soln -) 1 amp NEB RQID PRN PRN Reason: SHORT OF BREATH/WHEEZING Amlodipine Besylate (Norvasc -) 5 mg PO DAILY [facility] Last Admin: 12/12/18 09:46 Dose: 5 mg Cefuroxime Axetil (Ceftin -) 500 mg PO BID [facility] Last Admin: 12/12/18 09:46 Dose: 500 mg Ezetimibe (Zetia -) 10 mg PO DAILY [facility] Last Admin: 12/12/18 09:47 Dose: 10 mg Heparin Sodium (Porcine) (Heparin -) 5,000 unit SQ BID [facility] Last Admin: 12/12/18 09:47 Dose: 5,000 unit Ipratropium [place] (Atrovent 0.02% Nebulizer -) 1 amp NEB QIDR PRN PRN Reason: WHEEZING Levothyroxine Sodium 125 mcg/ (Levothyroxine Sodium 50 mcg) 175 mcg PO ACBK [facility] Last Admin: 12/12/18 06:26 Dose: 175 mcg Losartan Potassium (Cozaar -) 100 mg PO DAILY [facility] Last Admin: 12/12/18 09:46 Dose: 100 mg Melatonin (Melatonin) 10 mg PO HS PRN PRN Reason: INSOMNIA Last Admin: 12/11/18 21:53 Dose: 10 mg Methylprednisolone Sodium Succinate (Solu-Medrol -) 40 mg IVPUSH Q8H-IV [facility] Last Admin: 12/12/18 09:46 Dose: 40 mg Nicotine (Nicoderm Patch -) 21 mg TD DAILY [facility] Last Admin: 12/12/18 09:46 Dose: 21 mg Non-Formulary Medication (Cholecalciferol (Vitamin D3) [Vitamin D3]) 50,000 unit PO WEEKLY [facility] Pantoprazole Sodium (Protonix -) 40 mg PO DAILY [facility] Last Admin: 12/12/18 09:46 Dose: 40 mg Prasugrel (Effient -) 5 mg PO DAILY [facility] Last Admin: 12/12/18 09:47 Dose: 5 mg Pregabalin 50 mg/ Pregabalin (25 mg) 75 mg PO TID [facility] Last Admin: 12/12/18 13:57 Dose: 75 mg Rosuvastatin Calcium (Crestor -) 40 mg PO HS [facility] Last Admin: 12/11/18 21:53 Dose: 40 mg - Objective Vital Signs: Vital Signs Temperature 97.3 F L 12/12/18 10:00 Pulse Rate 56 L 12/12/18 10:00 Respiratory Rate 20 12/12/18 10:00 Blood Pressure 142/59 L 12/12/18 10:00 O2 Sat by Pulse Oximetry (%) 98 12/11/18 21:00 Constitutional: Yes: No Distress, Calm Eyes: Yes: Conjunctiva Clear HENT: Yes: Atraumatic Cardiovascular: Yes: Regular Rate and Rhythm Respiratory: Yes: Regular, Diminished Gastrointestinal: Yes: Normal Bowel Sounds, Soft Musculoskeletal: Yes: WNL Extremities: Yes: WNL Edema: No Neurological: Yes: Alert, Oriented Psychiatric: Yes: Alert, Oriented Labs: CBC, BMP 12/11/18 07:05 12/11/18 07:05 INR, PTT INR 1.05 (0.83-1.09) 12/06/18 20:35 Problem List - Problems (1) Connective tissue disease Code(s): M35.9 - SYSTEMIC INVOLVEMENT OF CONNECTIVE TISSUE, UNSPECIFIED (2) GERD (gastroesophageal reflux disease) Code(s): K21.9 - GASTRO-ESOPHAGEAL REFLUX DISEASE WITHOUT ESOPHAGITIS (3) HLD (hyperlipidemia) Code(s): E78.5 - HYPERLIPIDEMIA, UNSPECIFIED (4) HTN (hypertension) Code(s): I10 - ESSENTIAL (PRIMARY) HYPERTENSION (5) Hypothyroid Code(s): E03.9 - HYPOTHYROIDISM, UNSPECIFIED (6) Interstitial lung disease Code(s): J84.9 - INTERSTITIAL PULMONARY DISEASE, UNSPECIFIED (7) Pneumonia Code(s): J18.9 - PNEUMONIA, UNSPECIFIED ORGANISM Qualifiers: Pneumonia type: due to unspecified organism Laterality: bilateral Lung location: lower lobe of lung Qualified Code(s): J18.1 - Lobar pneumonia, unspecified organism (8) Sepsis Code(s): A41.9 - SEPSIS, UNSPECIFIED ORGANISM (9) Proteinuria Code(s): R80.9 - PROTEINURIA, UNSPECIFIED
[2018-12-12 14:22] VITALS: BP 147/71; TEMP 98.4
--- NOTE | 2018-12-12 14:50 | PN ---
Progress Note (short form) - Note Progress Note: PULMONARY Feels better. Has been ambulating without dyspnea. Vital Signs Period Temp Pulse Resp BP Sys/Lopez Pulse Ox Last 24 Hr 97.3 F-98.6 F 46-60 18-20 139-182/59-83 98 Gen: NAD at rest Heart: RRR Lung: decreased breath sounds at the bases Abd: soft, nontender Ext: no edema CBC, BMP 12/11/18 07:05 12/11/18 07:05 Active Medications Acetaminophen (Tylenol -) 650 mg PO Q4H PRN PRN Reason: PAIN OR FEVER Last Admin: 12/10/18 19:48 Dose: 650 mg Al Hydroxide/Mg Hydroxide (Mylanta Oral Suspension -) 30 ml PO Q6H PRN PRN Reason: DYSPEPSIA Last Admin: 12/12/18 09:46 Dose: 30 ml Albuterol Sulfate (Ventolin 0.083% Nebulizer Soln -) 1 amp NEB RQID PRN PRN Reason: SHORT OF BREATH/WHEEZING Amlodipine Besylate (Norvasc -) 5 mg PO DAILY [facility] Last Admin: 12/12/18 09:46 Dose: 5 mg Cefuroxime Axetil (Ceftin -) 500 mg PO BID [facility] Last Admin: 12/12/18 09:46 Dose: 500 mg Ezetimibe (Zetia -) 10 mg PO DAILY [facility] Last Admin: 12/12/18 09:47 Dose: 10 mg Heparin Sodium (Porcine) (Heparin -) 5,000 unit SQ BID [facility] Last Admin: 12/12/18 09:47 Dose: 5,000 unit Ipratropium [place] (Atrovent 0.02% Nebulizer -) 1 amp NEB QIDR PRN PRN Reason: WHEEZING Levothyroxine Sodium 125 mcg/ (Levothyroxine Sodium 50 mcg) 175 mcg PO ACBK [facility] Last Admin: 12/12/18 06:26 Dose: 175 mcg Losartan Potassium (Cozaar -) 100 mg PO DAILY [facility] Last Admin: 12/12/18 09:46 Dose: 100 mg Melatonin (Melatonin) 10 mg PO HS PRN PRN Reason: INSOMNIA Last Admin: 12/11/18 21:53 Dose: 10 mg Methylprednisolone Sodium Succinate (Solu-Medrol -) 40 mg IVPUSH Q8H-IV MATTHEW Last Admin: 12/12/18 09:46 Dose: 40 mg Nicotine (Nicoderm Patch -) 21 mg TD DAILY [facility] Last Admin: 12/12/18 09:46 Dose: 21 mg Non-Formulary Medication (Cholecalciferol (Vitamin D3) [Vitamin D3]) 50,000 unit PO WEEKLY [facility] Pantoprazole Sodium (Protonix -) 40 mg PO DAILY [facility] Last Admin: 12/12/18 09:46 Dose: 40 mg Prasugrel (Effient -) 5 mg PO DAILY [facility] Last Admin: 12/12/18 09:47 Dose: 5 mg Pregabalin 50 mg/ Pregabalin (25 mg) 75 mg PO TID [facility] Last Admin: 12/12/18 13:57 Dose: 75 mg Rosuvastatin Calcium (Crestor -) 40 mg PO HS [facility] Last Admin: 12/11/18 21:53 Dose: 40 mg A/P Acute Pneumonitis r/o Pneumonia Interstitial Lung Disease Lymphadenopathy Smoker h/o Lung Nodules - can change steroids to PO prednisone 60mg daily and taper slowly - complete antibiotics - check ambulatory SpO2 on room air - will need outpt f/u chest imaging and likely biopsy - DVT prophylaxis
[2018-12-12 15:15] VITALS: PULSE 90
--- NOTE | 2018-12-12 17:18 | DS ---
Physical Examination Vital Signs: Vital Signs Temperature 98.4 F 12/12/18 14:21 Pulse Rate 90 12/12/18 15:14 Respiratory Rate 20 12/12/18 14:21 Blood Pressure 147/71 12/12/18 14:21 O2 Sat by Pulse Oximetry (%) 93 L 12/12/18 15:14 Constitutional: Yes: No Distress, Calm Eyes: Yes: Conjunctiva Clear HENT: Yes: Atraumatic Cardiovascular: Yes: Regular Rate and Rhythm Respiratory: Yes: Regular, Diminished Gastrointestinal: Yes: Normal Bowel Sounds, Soft Musculoskeletal: Yes: WNL Extremities: Yes: WNL Edema: No Neurological: Yes: Alert, Oriented Psychiatric: Yes: Alert, Oriented Labs: CBC, BMP 12/11/18 07:05 12/11/18 07:05 Discharge Summary Reason For Visit: LEUKOCYTOSIS,HYPOXIA, PNEUMONIA Current Active Problems Abnormal chest CT (Acute) Connective tissue disease (Acute) Elevated troponin (Acute) Fever (Acute) GERD (gastroesophageal reflux disease) (Acute) H/O parotidectomy (Acute) HLD (hyperlipidemia) (Acute) HTN (hypertension) (Acute) Hypothyroid (Acute) Hypoxia (Acute) Interstitial lung disease (Acute) Leukocytosis (Acute) Lupus (systemic lupus erythematosus) (Acute) Osteoarthritis of knees, bilateral (Acute) Pneumonia (Acute) Proteinuria (Acute) Restless leg syndrome (Acute) Rheumatoid arthritis (Acute) Rotator cuff tendonitis (Acute) Sepsis (Acute) Hospital Course: Patient is a 63 y/o female with past medical history of RA, Lupus, L Patoridectomy, L lung nodule, HTN, HLD, Hypothyroidism. Patient presented to ER with complaints of SOB, fever, and chills. CXR showed bilateral infiltrate and treated for PNA with IV antibiotics. Patient responded well and switched to PO antibiotics. Patient had pre and post SpO2 showed 92% does not qualify for home O2. Started on Amlodipine 5mg tablet PO to BP med regimen due to elevated BP and noted with good response but will need close follow up with PMD. Condition: Stable - Instructions Diet, Activity, Other Instructions: Follow up with PMD in 1 week of discharge follow up with Pulmonary Dr Conte for outpatient CT scan follow up with Nephrology Dr Oliver to monitor renal function and possible renal biopsy follow up with cardiology Dr Jarrett to monitor BP and palpitations continue antibiotics until completed Tapering dose of Prednisone: start on 60mg tablet daily for 5 days, then take 50mg tablet daily for 5 days, then take 40mg tablet daily until seen by Dr Conte return to ER if develop severe pain, respiratory distress, chest pain Referrals: Vern Conte MD [Staff Physician] - Abdi Yoon MD [Staff Physician] - Tenzin Oliver MD [Staff Physician] - Nestor Jacob MD [Staff Physician] - Disposition: HOME - Home Medications Comprehensive Discharge Medication List: Ambulatory Orders Folic Acid 1 mg PO DAILY 09/20/18 Losartan Potassium 100 mg PO DAILY 09/20/18 Pantoprazole Sodium 40 mg PO DAILY 09/20/18 Prasugrel HCl 5 mg PO DAILY 09/20/18 Rosuvastatin Calcium 40 mg PO DAILY 09/20/18 Acetaminophen/Diphenhydramine [Tylenol Pm Ex-Strength Caplet] 2 tab PO HS Cholecalciferol (Vitamin D3) [Vitamin D3] 50,000 unit PO WEEKLY 12/07/18 Ezetimibe 10 mg PO DAILY 12/07/18 Levothyroxine Sodium 175 mcg PO DAILY 12/07/18 Pregabalin [Lyrica -] 75 mg PO TID 12/07/18 Albuterol 0.083% Nebulizer Nicole [Ventolin 0.083% Nebulizer Soln -] 1 amp NEB RQID PRN #30 amp 12/12/18 Amlodipine Besylate [Norvasc -] 5 mg PO DAILY #30 tablet 12/12/18 Cefuroxime Axetil [Ceftin -] 500 mg PO BID #12 tablet 12/12/18 Melatonin 10 mg PO HS PRN #30 tab 12/12/18 Nicotine Patch [Nicoderm Patch -] 21 mg TD DAILY #30 patch 12/12/18 Prednisone [Deltasone] 20 mg PO DAILY #90 tablet 12/12/18
== END 2018-12-12 19:12 | disposition home or self-care (01) | DRG 871 ==
LOC: JER 19:11 → JERBED 22:14 → J7W 12-07 16:48
PROVIDERS: ADMIT Family Medicine; ATTEND Family Medicine
DX: A41.9 Sepsis, unspecified organism (principal); J18.1 Lobar pneumonia, unspecified organism; J84.9 Interstitial pulmonary disease, unspecified; N04.2 Nephrotic syndrome with diffuse membranous glomerulonephritis; M32.9 Systemic lupus erythematosus, unspecified; F17.210 Nicotine dependence, cigarettes, uncomplicated; M06.9 Rheumatoid arthritis, unspecified; E03.9 Hypothyroidism, unspecified; M75.80 Other shoulder lesions, unspecified shoulder; R80.9 Proteinuria, unspecified; N18.9 Chronic kidney disease, unspecified; E88.09 Other disorders of plasma-protein metabolism, not elsewhere classified; D72.829 Elevated white blood cell count, unspecified; K21.9 Gastro-esophageal reflux disease without esophagitis; E78.5 Hyperlipidemia, unspecified; G25.81 Restless legs syndrome; E66.9 Obesity, unspecified; Z68.37 Body mass index [BMI] 37.0-37.9, adult; I12.9 Hypertensive chronic kidney disease with stage 1 through stage 4 chronic kidney disease, or unspecified chronic kidney disease
CPT/HCPCS: 36415; 36600; 70450-TC; 71045-TC-FY; 71250-TC; 76775-TC; 80053; 80061; 80076; 81003; 82375; 82570; 82803; 83050; 83520; 83605; 83721; 83735; 84100; 84156; 84484; 85025; 85027; 85610; 85651; 85730; 86038; 86140; 86162; 86225; 86256; 86480; 87040; 87086; 87389; 87899; 93005; 93010; 93306-TC; 94761; 99283-25; J0131; J1644; J7030

== ENCOUNTER 2019-02-18 07:58 | Day surgery (SDC) | payer OTHER ==
[2019-02-15 16:10] VITALS: BMI 36.3
[2019-02-18 08:43] LABS: BASO % 1.3 % (0-2.0); EOS % 4.1 % (0-4.5); HEMATOCRIT 41.8 % (32.4-45.2); HEMOGLOBIN 14.4 GM/dL (10.7-15.3); LYMPH % 32.5 % (8-40); MCH 31.4 pg (25.7-33.7); MCHC 34.5 g/dl (32.0-36.0); MEAN PLT VOLUME 10.2 fl (7.5-11.1); MONO % 6.5 % (3.8-10.2); NEUT % 55.6 % (42.8-82.8); PLATELET COUNT 245 K/MM3 (134-434); RDW 13.8 % (11.6-15.6); WHITE BLOOD COUNT 5.7 K/mm3 (4.0-10.0)
[2019-02-18 09:27] LABS: INR 0.98 (0.83-1.09); PROTHROMBIN TIME (PATIENT) 11.6 SEC (9.7-13.0)
[2019-02-18 12:22] VITALS: TEMP 98.3
[2019-02-18 15:44] VITALS: BP 146/68; PULSE 84
--- NOTE | 2019-03-15 17:26 | PATH ---
Surgical Pathology Report Patient Name: KENYATTA SCHAFFER [facility]. Rec. #: [id number] /Age/Gender: 1955 (Age: 63) / F Account: [id number] Location: RADIOLOGY INTER Taken: 02/18/2019 Received: 02/18/2019 Reported: 03/15/2019 Physicians: Ned Negron M.D. Specimen(s) Received RENAL BIOPSY Clinical History 63-year-old female with hypertension, SLE, hypothyroidism and type 2 diabetes mellitus now with proteinuria Intraoperative Consult Diagnosis Kidney biopsy: Glomeruli present. Nolberto Hunter M.D., 02/18/2019 Final Diagnosis Below is the consult report from [place], [place] ([id number]). RENAL BIOPSY: 1. MEMBRANOUS NEPHROPATHY. 2. TUBULAR ATROPHY AND INTERSTITIAL FIBROSIS, MILD. 3. ARTERIOLOSCLEROSIS, MILD. Comment: The immunofluorescence findings of granular global mesangial and glomerular capillary wall staining for IgG, IgM, IgA, C3, kappa, and lambda support a diagnosis of membranous nephropathy. Differential diagnosis includes primary membranous nephropathy vs. secondary forms such as related to autoimmune disease, infection, neoplasia and medications. An immunofluorescence stain for PLA2R, the major target antigen in primary membranous nephropathy, is pending and will be reported in an addendum. Electron microscopy is pending and may be contributory. 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 Electronically Signed Jarett Hunter M.D. Microscopic Description Sections robin stains with H&E, PAS, trichrome, and JMS. The sample shows 1 core of renal cortex. Four(4) glomeruli are identified, none of which are globally sclerotic. The glomeruli appear normal in size and exhibit a mild to moderate mesangial matrix expansion by glassy eosinophilic material accompanied by mild segmental mesangial hypercellularity. No endocapillary hypercellularity is appreciated. The glomerular basement membranes are thickened by subepithelial fuchsinophilic immune deposits by intervening GBM spikes. Podocytes appear swollen. Proximal tubules display largely intact brush borders and contain PAS-positive intracytoplasmic droplets. There is mild tubular atrophy and interstitial fibrosis involvs~10% of the cortex. Minimal interstitial inflammation, composed predominantly of mononuclear leukocytes, involves <5% of the cortex, largely confined to the area of atrophy. Rare isolated foci of mild lymphocytic tubulitis is appreciated. Vessels display mild arteriolosclerosis. No arteritis seen. Immunofluorescence(Procedure) INTERPRETATION RENAL PATHOLOGY LABORATORYIMMUNOFLUORESCENCE REPORT GLOMERULI TUBULES INTERSTITIUM VESSLES IgG 6 gloms 3+gran global mes & GCW Neg Neg Neg IgM 6 gloms 1+gran global mes & GCW Neg Neg Neg IgA 6 gloms 2+gran global mes & GCW Neg Neg Neg C3 6 gloms 1+gran global mes & GCW TBM's 1+ Gran, focal Neg Neg C1 6 gloms neg Neg Neg Neg FBGN 6 gloms neg Neg Neg Neg ALB 6 gloms neg Neg Neg Neg KAPPA 6 gloms 3+gran global mes & GCW Neg Neg Neg LAMBDA 6 gloms 3+gran global mes & GCW Neg Neg Neg ELECTRON MICROSCOPY (INTERPRETATION) Glomerular capillary lumina are patent. Mesangial areas demonstrate mild increase in matrix and cells, accompanied by global electron dense deposits. Endothelial cell fenestrations are segmentally attenuated. Global subepithelial immune deposits are identified and are associated with intervening GBM spikes, some which are incorporated into the GBMs. No subendothelial deposits are seen. These deposits have no organized substructure. Podocytes display 100% foot process effacement. Rare endothelial tubuloreticular inclusions are present. Proximal tubular cells have intact brush borders. No definitive immune deposits are seen involving tubular basement membranes. Arterial vessels are not sampled. RESULTS Renal Biopsy: A. Electron dense deposits -Subepithelial, global, 3+ -Mesangial, global, 3+. B. Foot process effacement: ~100%. C. Endothelial tubuloreticular inclusion. Consistent with: Membranous nephropathy. Tubular atrophy and interstitial fibrosis mild. Arteriolosclerosis, mild. Note: The presence of mesangial electron dense deposits, attaining IgA, and the lack of significant staining for PLA2R by immunofluoresence provides evidence for secondary forms of membranous nephropathy such as related to autoimmune disease (i.e.,MCTD). This report has been electronically signed and results reported by Dr. Eleazar Gray of [facility]. See [facility] report [id number] for details. Gross Description Received in saline labeled "renal biopsy," are 2 lopez-red, cylindrical portion of soft tissue measuring 0.2 and 0.7 cm in length and averaging 0.1 cm in diameter. The specimen is divided, placed into 10% buffered formalin, Ubaldo fixative and glutaraldehyde. The specimen is sent to [facility] for further studies. 02/18/2019 [email or web address]/18/2019
== END 2019-02-18 15:30 | disposition home or self-care (01) ==
LOC: JRADIR 07:58
PROVIDERS: ATTEND Internal Medicine Nephrology
PROC: 0TB13ZX Excision of Left Kidney, Percutaneous Approach, Diagnostic (ICD-10-PCS; principal; 2019-02-18)
DX: I12.9 Hypertensive chronic kidney disease with stage 1 through stage 4 chronic kidney disease, or unspecified chronic kidney disease (principal); E11.22 Type 2 diabetes mellitus with diabetic chronic kidney disease; N18.9 Chronic kidney disease, unspecified
CPT/HCPCS: 36415; 50200; 76098-TC-FY; 76775-TC; 76942-TC; 85025; 85610; 87899; 88300-TC; 88329

== ENCOUNTER 2020-12-23 04:58 | Day surgery (SDC) | payer OTHER ==
[2020-12-21 15:45] VITALS: BMI 36.3
[2020-12-23] MEDS ORDERED: SODIUM CHLORIDE 500 ML IV SCH (13:10)
[2020-12-23] MEDS ORDERED: MIDAZOLAM HCL 2 MG/2 ML SINGLE DOSE VIAL IVPUSH ONE ×2 (13:15→13:26)
[2020-12-23 18:40] VITALS: TEMP 97.8
[2020-12-23 18:44] VITALS: BP 142/64; PULSE 73
== END 2020-12-23 17:30 | disposition home or self-care (01) ==
LOC: JRADIR 04:58
PROVIDERS: ATTEND Internal Medicine Nephrology
PROC: 0TB03ZX Excision of Right Kidney, Percutaneous Approach, Diagnostic (ICD-10-PCS; principal; 2020-12-23)
DX: I12.9 Hypertensive chronic kidney disease with stage 1 through stage 4 chronic kidney disease, or unspecified chronic kidney disease (principal); N18.30 Chronic kidney disease, stage 3 unspecified; R80.9 Proteinuria, unspecified; M32.9 Systemic lupus erythematosus, unspecified
CPT/HCPCS: 50200; 88300-TC; 88329

== ENCOUNTER 2021-04-21 14:49 | Inpatient (IN) | payer OTHER ==
[2021-04-21] MEDS ORDERED: ACETAMINOPHEN 1000 MG/100 ML BAG IVPB ONE (16:40)
[2021-04-21] MEDS ORDERED: ACETAMINOPHEN INJECTION 100 ML IVPB ONE (16:55)
[2021-04-21] MEDS ORDERED: CEFTRIAXONE 1 GM in DEXTROSE 5%-WATER - 50 ML IVPB ONE (17:50)
[2021-04-21] MEDS ORDERED: AZITHROMYCIN 250 MG TABLET PO ONE (17:50)
[2021-04-21 17:56] LABS: CHLORIDE 109 mmol/L (98-107); SODIUM 139 mmol/L (136-145)
[2021-04-21] MEDS ORDERED: AZITHROMYCIN 250 MG TABLET ONE (17:56)
[2021-04-21] MEDS ORDERED: CEFTRIAXONE 1 GM/50 ML BAG ONE (17:56)
[2021-04-21 17:59] LABS: ALBUMIN 3.5 g/dl (3.4-5.0); ANION GAP 3 MMOL/L (8-16); BLOOD UREA NITROGEN 35.3 mg/dL (7-18); CALCIUM 8.4 mg/dL (8.5-10.1); CO2 27 mmol/L (21-32); GLUCOSE,RANDOM 86 mg/dL (74-106)
[2021-04-21 18:00] LABS: BASO % 0.3 % (0-2.0); EOS % 3.3 % (0-4.5); HEMOGLOBIN 19.1 GM/dL (10.7-15.3); LYMPH % 38.4 % (8-40); MCHC 32.4 g/dl (32.0-36.0); MEAN CELL VOLUME 89.5 fl (80-96); MEAN PLT VOLUME 9.6 fl (7.5-11.1); MONO % 3.2 % (3.8-10.2); NEUT % 54.8 % (42.8-82.8); PLATELET COUNT 108 10^3/uL (134-434); RBC 6.59 M/mm3 (3.60-5.2); RDW 15.3 % (11.6-15.6); WHITE BLOOD COUNT 7.5 K/mm3 (4.0-10.0)
[2021-04-21 18:02] LABS: CREATININE 1.9 mg/dL (0.55-1.3); SGOT/AST 32 U/L (15-37); SGPT/ALT 18 U/L (13-61)
[2021-04-21 18:04] LABS: BILIRUBIN,TOTAL 0.4 mg/dL (0.2-1); TOT PROT 8.1 g/dl (6.4-8.2)
[2021-04-21 18:05] LABS: ALK PHOS 108 U/L (45-117)
[2021-04-21] MEDS ORDERED: SODIUM CHLORIDE 0.9% 500 ML INFUS.BAG IV ONE (18:41)
[2021-04-21] MEDS ORDERED: POLYETHYLENE GLYCOL (HEALTHYLAX) 3350 17 GM PACKET PO PRN (19:35)
[2021-04-21] MEDS ORDERED: ACETAMINOPHEN 325 MG TABLET (FP) PO PRN (19:35)
[2021-04-21] MEDS ORDERED: SODIUM CHLORIDE 1,000 ML IV SCH (19:45)
[2021-04-21] MEDS: INSULIN SLIDING SCALE (NOVOLOG) 1 VIAL SQ SCH (22:01)
[2021-04-21] MEDS: HEPARIN NA (PORCINE) 5,000 UNITS/ML 1ML VIAL SQ SCH (22:51)
[2021-04-21] MEDS ORDERED: ALBUTEROL SO4 HFA INHALER IH PRN (23:21)
[2021-04-21] MEDS ORDERED: PREGABALIN 100 MG CAPSULE PO ONE (23:27)
[2021-04-22] MEDS: traZODone HCL 50 MG TABLET (FP) PO SCH ×2 (00:38→21:41)
[2021-04-22] MEDS ORDERED: SODIUM CHLORIDE 1,000 ML IV SCH (01:52)
[2021-04-22 03:57] VITALS: BMI 38.9
[2021-04-22] MEDS: INSULIN SLIDING SCALE (NOVOLOG) 1 VIAL SQ SCH ×4 (06:00→21:42)
[2021-04-22] MEDS: HEPARIN NA (PORCINE) 5,000 UNITS/ML 1ML VIAL SQ SCH ×3 (06:23→21:41)
[2021-04-22] MEDS ORDERED: LEVOTHYROXINE NA 100 MCG TABLET (FP) PO SCH ×2 (07:00→16:33)
[2021-04-22 07:41] LABS: BASO % 0.8 % (0-2.0); EOS % 4.8 % (0-4.5); HEMATOCRIT 38.7 % (32.4-45.2); HEMOGLOBIN 12.6 GM/dL (10.7-15.3); LYMPH % 26.7 % (8-40); MCH 29.2 pg (25.7-33.7); MCHC 32.4 g/dl (32.0-36.0); MEAN CELL VOLUME 90.1 fl (80-96); MEAN PLT VOLUME 10.3 fl (7.5-11.1); MONO % 4.1 % (3.8-10.2); NEUT % 63.6 % (42.8-82.8); PLATELET COUNT 203 10^3/uL (134-434); RBC 4.29 M/mm3 (3.60-5.2); WHITE BLOOD COUNT 7.6 K/mm3 (4.0-10.0)
[2021-04-22 07:47] LABS: PROTHROMBIN TIME (PATIENT) 11.5 SEC (9.7-13.0)
[2021-04-22 07:58] LABS: CHLORIDE 112 mmol/L (98-107); SODIUM 142 mmol/L (136-145)
[2021-04-22 08:02] LABS: ANION GAP 5 MMOL/L (8-16); BLOOD UREA NITROGEN 30.6 mg/dL (7-18); CALCIUM 7.7 mg/dL (8.5-10.1); CO2 25 mmol/L (21-32); GLUCOSE,RANDOM 95 mg/dL (74-106); MAGNESIUM 2.4 mg/dL (1.8-2.4)
[2021-04-22 08:06] LABS: CREATININE 1.6 mg/dL (0.55-1.3)
[2021-04-22] MEDS: LOSARTAN POTASSIUM 50 MG TABLET PO SCH (09:37)
[2021-04-22] MEDS: amLODIPine BESYLATE 10 MG TABLET (FP) PO SCH (09:37)
[2021-04-22] MEDS: metoPROLOL SUCCINATE 25 MG TAB.SR.24H (FP) PO SCH (09:37)
[2021-04-22] MEDS: AZITHROMYCIN 250 MG TABLET PO SCH (09:42)
[2021-04-22] MEDS ORDERED: AZITHROMYCIN 500 MG TABLET PO SCH (10:00)
[2021-04-22] MEDS ORDERED: REGADENOSON 0.4 MG/5 ML PRE-FILLED SYRINGE IVPUSH ONE ×2 (13:00→13:36)
[2021-04-22 16:35] LABS: N-TERMINAL BNP 43.8 pg/ml (5-125)
[2021-04-22] MEDS ORDERED: DEXTROSE 5%-WATER - 50 ML IVPB ONE (17:06)
[2021-04-22] MEDS ORDERED: cefTRIAXone SODIUM 1 GM VIAL ONE (17:06)
[2021-04-22] MEDS: CEFTRIAXONE 1 GM in DEXTROSE 5%-WATER - 50 ML IVPB SCH (17:34)
[2021-04-22] MEDS: PRAMIPEXOLE DIHYDROCHLORIDE 0.25 MG TABLET PO SCH (21:41)
[2021-04-22] MEDS: TOPIRAMATE 25 MG TABLET PO SCH (21:42)
[2021-04-22] MEDS ORDERED: ROSUVASTATIN CA 20 MG TABLET PO SCH (22:00)
[2021-04-22] MEDS ORDERED: PREGABALIN 75 MG CAPSULE PO SCH (22:15)
[2021-04-22] MEDS ORDERED: PREGABALIN 100 MG CAPSULE PO ONE (22:37)
[2021-04-23] MEDS: INSULIN SLIDING SCALE (NOVOLOG) 1 VIAL SQ SCH ×2 (06:18→12:32)
[2021-04-23] MEDS: HEPARIN NA (PORCINE) 5,000 UNITS/ML 1ML VIAL SQ SCH ×2 (06:53→13:22)
[2021-04-23 07:05] LABS: BLOOD UREA NITROGEN 28.7 mg/dL (7-18)
[2021-04-23 07:08] LABS: CREATININE 1.6 mg/dL (0.55-1.3); MAGNESIUM 2.5 mg/dL (1.8-2.4)
[2021-04-23] MEDS ORDERED: cefTRIAXone SODIUM 1 GM VIAL ONE (08:21)
[2021-04-23] MEDS ORDERED: DEXTROSE 5%-WATER - 50 ML IVPB ONE (08:22)
[2021-04-23] MEDS ORDERED: CLOPIDOGREL BISULFATE 75 MG TABLET (FP) PO SCH (10:00)
[2021-04-23] MEDS ORDERED: ROSUVASTATIN CA 40 MG TABLET PO SCH (10:00)
[2021-04-23] MEDS: CEFTRIAXONE 1 GM in DEXTROSE 5%-WATER - 50 ML IVPB SCH (10:15)
[2021-04-23] MEDS: metoPROLOL SUCCINATE 25 MG TAB.SR.24H (FP) PO SCH (10:16)
[2021-04-23] MEDS: PRAMIPEXOLE DIHYDROCHLORIDE 0.25 MG TABLET PO SCH (10:16)
[2021-04-23] MEDS: amLODIPine BESYLATE 10 MG TABLET (FP) PO SCH (10:16)
[2021-04-23] MEDS: AZITHROMYCIN 250 MG TABLET PO SCH (10:17)
[2021-04-23] MEDS: LOSARTAN POTASSIUM 50 MG TABLET PO SCH (10:17)
[2021-04-23] MEDS: TOPIRAMATE 25 MG TABLET PO SCH (10:18)
[2021-04-23 14:06] VITALS: BP 123/63; PULSE 75; TEMP 98.5
== END 2021-04-23 18:07 | disposition home or self-care (01) | DRG 682 ==
LOC: JER 14:49 → JERBED 16:40 → J4W 21:11
PROVIDERS: ADMIT Internal Medicine; ATTEND Family Medicine
DX: N17.9 Acute kidney failure, unspecified (principal); J18.9 Pneumonia, unspecified organism; K86.2 Cyst of pancreas; E78.5 Hyperlipidemia, unspecified; E03.9 Hypothyroidism, unspecified; M06.9 Rheumatoid arthritis, unspecified; M32.9 Systemic lupus erythematosus, unspecified; J44.9 Chronic obstructive pulmonary disease, unspecified; D69.6 Thrombocytopenia, unspecified; I34.0 Nonrheumatic mitral (valve) insufficiency; F17.210 Nicotine dependence, cigarettes, uncomplicated; I45.10 Unspecified right bundle-branch block; R91.1 Solitary pulmonary nodule; D75.1 Secondary polycythemia; I12.9 Hypertensive chronic kidney disease with stage 1 through stage 4 chronic kidney disease, or unspecified chronic kidney disease; N18.30 Chronic kidney disease, stage 3 unspecified; R73.03 Prediabetes; R20.2 Paresthesia of skin; I27.20 Pulmonary hypertension, unspecified; I20.9 Angina pectoris, unspecified; G43.909 Migraine, unspecified, not intractable, without status migrainosus; G25.81 Restless legs syndrome; Z86.73 Personal history of transient ischemic attack (TIA), and cerebral infarction without residual deficits
CPT/HCPCS: 36415; 70450-TC; 71045-TC-FY; 71250-TC; 78452-TC; 80048; 80053; 82550; 82553; 82962; 83735; 83880; 84100; 84439; 84443; 84484; 85025; 85610; 85730; 87040; 87804; 87899; 93005; 93010; 93017; 93306-TC; 99285-25; A9502; C9803; J0131; J1644; J2785; U0003; U0005

== ENCOUNTER 2021-07-02 04:12 | Day surgery (SDC) | payer OTHER ==
[2021-06-30 14:40] VITALS: BMI 38.5
[2021-07-02] MEDS ORDERED: BUPIVACAINE HCL/PF 0.75% 10 ML VIAL ONE (07:13)
[2021-07-02] MEDS ORDERED: LIDOCAINE HCL/PF 1% SDV 5ML VIAL ONE (07:13)
[2021-07-02] MEDS ORDERED: IOHEXOL 180 MG/1 ML ML IJ ONE (11:33)
[2021-07-02] MEDS ORDERED: LIDOCAINE HCL 1% PRESERVATIVE FREE - 30ML VIAL IJ ONE (11:34)
[2021-07-02] MEDS ORDERED: BUPIVACAINE HCL/PF 0.75% 10 ML VIAL NR ONE (11:34)
[2021-07-02 14:15] VITALS: BP 139/61; PULSE 68; TEMP 97.8
== END 2021-07-02 12:15 | disposition home or self-care (01) ==
LOC: JASU-SURG 04:12
PROVIDERS: ATTEND Pain Medicine Pain Medicine
PROC: BR16YZZ Fluoroscopy of Lumbar Facet Joint(s) using Other Contrast (ICD-10-PCS; 2021-07-02)
PROC: 3E0T3BZ Introduction of Anesthetic Agent into Peripheral Nerves and Plexi, Percutaneous Approach (ICD-10-PCS; principal; 2021-07-02 11:30)
DX: M47.816 Spondylosis without myelopathy or radiculopathy, lumbar region (principal); I10 Essential (primary) hypertension; R73.03 Prediabetes

== ENCOUNTER → 2021-07-30 | Day surgery (SDC) | payer OTHER ==
[2021-07-26 08:55] VITALS: BMI 37.4
[~2021-07-30] MED LIST: BUPIVACAINE HCL/PF 0.75% 10 ML VIAL NR ONE; BUPIVACAINE HCL/PF 0.75% 10 ML VIAL ONE; DEXAMETHASONE SOD PHOSPHATE 10 MG/1 ML VIAL ONE; IOHEXOL 180 MG/1 ML ML IJ ONE; LIDOCAINE HCL 1% PRESERVATIVE FREE - 30ML VIAL IJ ONE; LIDOCAINE HCL/PF 1% SDV 5ML VIAL ONE
== END | disposition home or self-care (01) ==
LOC: JASU-SURG 04:16
PROVIDERS: ATTEND Pain Medicine Pain Medicine
DX: Z53.8 Procedure and treatment not carried out for other reasons (principal)
CPT/HCPCS: J1100

== ENCOUNTER 2021-08-27 04:20 | Day surgery (SDC) | payer OTHER ==
[2021-08-24 12:14] VITALS: BMI 38.5
[~2021-08-27 04:20] MED LIST changes: -BUPIVACAINE HCL/PF 0.75% 10 ML VIAL ONE; -DEXAMETHASONE SOD PHOSPHATE 10 MG/1 ML VIAL ONE; -IOHEXOL 180 MG/1 ML ML IJ ONE; -LIDOCAINE HCL 1% PRESERVATIVE FREE - 30ML VIAL IJ ONE; -LIDOCAINE HCL/PF 1% SDV 5ML VIAL ONE
[2021-08-27] MEDS ORDERED: BUPIVACAINE HCL/PF 0.75% 10 ML VIAL ONE (07:53)
[2021-08-27] MEDS ORDERED: LIDOCAINE HCL 1% PRESERVATIVE FREE - 30ML VIAL IJ ONE (12:11)
[2021-08-27] MEDS ORDERED: BUPIVACAINE HCL/PF 0.75% 10 ML VIAL NR ONE (12:14)
[2021-08-27 13:39] VITALS: BP 120/70; PULSE 68; TEMP 98
== END 2021-08-27 13:40 | disposition home or self-care (01) ==
LOC: JASU-SURG 04:20
PROVIDERS: ATTEND Pain Medicine Pain Medicine
PROC: 3E0T33Z Introduction of Anti-inflammatory into Peripheral Nerves and Plexi, Percutaneous Approach (ICD-10-PCS; 2021-08-27)
PROC: 3E0T3BZ Introduction of Anesthetic Agent into Peripheral Nerves and Plexi, Percutaneous Approach (ICD-10-PCS; principal; 2021-08-27 17:30)
DX: M47.816 Spondylosis without myelopathy or radiculopathy, lumbar region (principal); M06.9 Rheumatoid arthritis, unspecified; Z72.0 Tobacco use; E03.9 Hypothyroidism, unspecified; I10 Essential (primary) hypertension
CPT/HCPCS: 76000-TC-FY

== ENCOUNTER 2021-09-24 03:58 | Day surgery (SDC) | payer OTHER ==
[2021-09-22 10:38] VITALS: BMI 38.5
[2021-09-24] MEDS ORDERED: BUPIVACAINE HCL/PF 0.75% 10 ML VIAL ONE (07:07)
[2021-09-24] MEDS ORDERED: LIDOCAINE HCL/PF 1% SDV 5ML VIAL ONE (07:07)
[2021-09-24] MEDS ORDERED: DEXAMETHASONE SOD PHOSPHATE 10 MG/1 ML VIAL ONE (07:07)
[2021-09-24] MEDS ORDERED: LIDOCAINE HCL/PF 2% SDV 5ML VIAL ONE (07:12)
[2021-09-24] MEDS ORDERED: BUPIVACAINE HCL/PF 0.75% 10 ML VIAL NR ONE (11:15)
[2021-09-24] MEDS ORDERED: DEXAMETHASONE SOD PHOSPHATE 10 MG/1 ML VIAL IVPUSH ONE (11:15)
[2021-09-24] MEDS ORDERED: LIDOCAINE HCL/PF 2% SDV 5ML VIAL INF ONE (11:16)
[2021-09-24 11:49] VITALS: BP 149/80; PULSE 76; TEMP 98.2
== END 2021-09-24 12:50 | disposition home or self-care (01) ==
LOC: JASU-SURG 03:58
PROVIDERS: ATTEND Pain Medicine Pain Medicine
PROC: BR16YZZ Fluoroscopy of Lumbar Facet Joint(s) using Other Contrast (ICD-10-PCS; 2021-09-24)
PROC: 3E0T3TZ Introduction of Destructive Agent into Peripheral Nerves and Plexi, Percutaneous Approach (ICD-10-PCS; principal; 2021-09-24 10:45)
DX: M47.816 Spondylosis without myelopathy or radiculopathy, lumbar region (principal)
CPT/HCPCS: 76000-TC-FY; J1100

== ENCOUNTER 2021-10-29 04:03 | Day surgery (SDC) | payer OTHER ==
[2021-10-27 11:25] VITALS: BMI 37.8
[2021-10-29] MEDS ORDERED: LIDOCAINE HCL/PF 1% SDV 5ML VIAL ONE (07:13)
[2021-10-29] MEDS ORDERED: BUPIVACAINE HCL/PF 0.75% 10 ML VIAL ONE (07:13)
[2021-10-29] MEDS ORDERED: DEXAMETHASONE SOD PHOSPHATE 10 MG/1 ML VIAL ONE (07:15)
[2021-10-29] MEDS ORDERED: LIDOCAINE HCL/PF 2% SDV 5ML VIAL ONE (07:23)
[2021-10-29] MEDS ORDERED: LIDOCAINE HCL 1% PRESERVATIVE FREE - 30ML VIAL IJ ONE (13:20)
[2021-10-29] MEDS ORDERED: DEXAMETHASONE SOD PHOSPHATE 10 MG/1 ML VIAL IM ONE (13:20)
[2021-10-29] MEDS ORDERED: LIDOCAINE HCL 2% (50ML VIAL) NR ONE (13:20)
[2021-10-29] MEDS ORDERED: LIDOCAINE 1% P/F 10 MG/ML VIAL INF ONE (13:20)
[2021-10-29] MEDS ORDERED: BUPIVACAINE HCL/PF 0.75% 10 ML VIAL NR ONE (13:20)
[2021-10-29 16:09] VITALS: RESP 18
[2021-10-29 16:14] VITALS: BP 158/74; PULSE 70; TEMP 97.9
== END 2021-10-29 14:25 | disposition home or self-care (01) ==
LOC: JASU-SURG 04:03
PROVIDERS: ATTEND Pain Medicine Pain Medicine
PROC: 3E0T3TZ Introduction of Destructive Agent into Peripheral Nerves and Plexi, Percutaneous Approach (ICD-10-PCS; principal; 2021-10-29 11:45)
DX: M47.816 Spondylosis without myelopathy or radiculopathy, lumbar region (principal)
CPT/HCPCS: 76000-TC-FY; J1100

== ENCOUNTER 2022-07-19 04:11 | Day surgery (SDC) | payer OTHER ==
[2022-07-15 17:02] VITALS: BMI 34.2
[~2022-07-19 04:11] MED LIST changes: +BUPIVACAINE HCL/PF 0.5% (5MG/ML) 10 ML VIAL IJ ONE; -BUPIVACAINE HCL/PF 0.75% 10 ML VIAL NR ONE; +TRIAMCINOLONE ACET 40MG/1ML VIAL IJ ONE
[2022-07-19] MEDS ORDERED: TRIAMCINOLONE ACET 40MG/1ML VIAL ONE (07:38)
[2022-07-19] MEDS ORDERED: LIDOCAINE HCL/PF 1% SDV 5ML VIAL ONE (07:39)
[2022-07-19] MEDS ORDERED: BUPIVACAINE HCL/PF 0.5% (5MG/ML) 10 ML VIAL ONE (07:39)
[2022-07-19 11:13] VITALS: RESP 18
[2022-07-19] MEDS ORDERED: LIDOCAINE HCL 1% PRESERVATIVE FREE - 30ML VIAL IJ ONE (12:08)
[2022-07-19] MEDS ORDERED: IOHEXOL 180 MG/1 ML ML IJ ONE (12:10)
[2022-07-19] MEDS ORDERED: TRIAMCINOLONE ACET 40MG/1ML VIAL IJ ONE (12:18)
[2022-07-19] MEDS ORDERED: BUPIVACAINE HCL/PF 0.5% (5MG/ML) 10 ML VIAL IJ ONE (12:18)
[2022-07-19 12:42] VITALS: TEMP 98.7
[2022-07-19 13:33] VITALS: BP 136/50; PULSE 64
[2022-07-19] MEDS ORDERED: ACETAMINOPHEN 500 MG TABLET (FP) PO PRN (14:28)
== END 2022-07-19 12:55 | disposition home or self-care (01) ==
LOC: JASU-SURG 04:11
PROVIDERS: ATTEND Pain Medicine Pain Medicine
PROC: 3E0U3BZ Introduction of Anesthetic Agent into Joints, Percutaneous Approach (ICD-10-PCS; 2022-07-19)
PROC: 3E0U33Z Introduction of Anti-inflammatory into Joints, Percutaneous Approach (ICD-10-PCS; principal; 2022-07-19 12:30)
DX: M53.3 Sacrococcygeal disorders, not elsewhere classified (principal)
CPT/HCPCS: 76000-TC-FY

== ENCOUNTER 2022-08-13 07:50 | Emergency (ER) | payer OTHER ==
[2022-08-13 08:01] VITALS: BP 142/76; PULSE 78; RESP 18; TEMP 98.5; BMI 38.5
[2022-08-13] MEDS ORDERED: traMADol HCL 50 MG TABLET PO ONE (08:54)
[2022-08-13] MEDS ORDERED: traMADol HCL 50 MG TABLET ONE (09:01)
[2022-08-13] MEDS ORDERED: METHOCARBAMOL 500 MG TABLET PO ONE (10:13)
[2022-08-13] MEDS ORDERED: predniSONE 20 MG TABLET (UD) PO ONE (10:13)
[2022-08-13] MEDS ORDERED: LIDOCAINE 5% TOPICAL PATCH TP ONE (10:15)
[2022-08-13] MEDS ORDERED: METHOCARBAMOL 500 MG TABLET ONE (10:38)
[2022-08-13] MEDS ORDERED: LIDOCAINE 5% TOPICAL PATCH ONE (10:38)
[2022-08-13] MEDS ORDERED: predniSONE 20 MG TABLET (UD) ONE (10:38)
[2022-08-13] MEDS ORDERED: LIDOCAINE PATCH REMOVAL MC SCH (22:00)
== END 2022-08-13 13:17 | disposition home or self-care (01) ==
LOC: JER 07:50
DX: M25.511 Pain in right shoulder (principal); M25.512 Pain in left shoulder; M54.6 Pain in thoracic spine
CPT/HCPCS: 99283-25

== ENCOUNTER 2022-09-03 17:02 | Emergency (ER) | payer OTHER ==
[2022-09-03 17:17] VITALS: RESP 18; BMI 38.2
[2022-09-03] MEDS ORDERED: LIDOCAINE 5% TOPICAL PATCH TP ONE (17:58)
[2022-09-03] MEDS ORDERED: KETAMINE HCL 200 MG/20 ML VIAL IVPB ONE (18:14)
[2022-09-03] MEDS ORDERED: SODIUM CHLORIDE 0.9% 500 ML INFUS.BAG IV ONE (18:16)
[2022-09-03] MEDS ORDERED: methylPREDNISolone NA SUCC 125 MG/2 ML VIAL IVPB ONE (18:17)
[2022-09-03] MEDS ORDERED: LIDOCAINE 5% TOPICAL PATCH ONE (18:29)
[2022-09-03] MEDS ORDERED: KETAMINE HCL 200 MG/20 ML VIAL ONE (18:29)
[2022-09-03] MEDS ORDERED: methylPREDNISolone NA SUCC 125 MG/2 ML VIAL ONE (18:29)
[2022-09-03 18:43] LABS: BASO % 1.2 % (0-2.0); EOS % 4.2 % (0-4.5); HEMATOCRIT 35.8 % (32.4-45.2); HEMOGLOBIN 11.8 GM/dL (10.7-15.3); LYMPH % 28.9 % (8-40); MCH 28.7 pg (25.7-33.7); MCHC 32.9 g/dl (32.0-36.0); MEAN CELL VOLUME 87.2 fl (80-96); MEAN PLT VOLUME 9.9 fl (7.5-11.1); MONO % 10.3 % (3.8-10.2); NEUT % 55.4 % (42.8-82.8); PLATELET COUNT 251 10^3/uL (134-434); RBC 4.11 M/mm3 (3.60-5.2); RDW 16.1 % (11.6-15.6); WHITE BLOOD COUNT 7.8 K/mm3 (4.0-10.0)
[2022-09-03 18:56] LABS: POTASSIUM 5.2 mmol/L (3.5-5.1)
[2022-09-03 18:58] LABS: CALCIUM 8.7 mg/dL (8.5-10.1)
[2022-09-03 18:59] LABS: ALBUMIN 2.9 g/dl (3.4-5.0); BLOOD UREA NITROGEN 30.2 mg/dL (7-18)
[2022-09-03 19:02] LABS: CREATININE 1.5 mg/dL (0.55-1.3)
[2022-09-03 19:03] LABS: BILIRUBIN,TOTAL 0.6 mg/dL (0.2-1)
[2022-09-03 19:35] LABS: ERYTHROCYTE SEDIMENTATION RATE 88 mm/hr (0-30)
[2022-09-03 19:54] VITALS: BP 157/100; PULSE 75; TEMP 98.8
[2022-09-03] MEDS ORDERED: LIDOCAINE PATCH REMOVAL MC SCH (22:00)
== END 2022-09-03 21:49 | disposition home or self-care (01) ==
LOC: JER 17:02
PROC: 3E033NZ Introduction of Analgesics, Hypnotics, Sedatives into Peripheral Vein, Percutaneous Approach (ICD-10-PCS; principal; 2022-09-03)
PROC: 3E033GC Introduction of Other Therapeutic Substance into Peripheral Vein, Percutaneous Approach (ICD-10-PCS; 2022-09-03)
DX: M54.6 Pain in thoracic spine (principal); M25.511 Pain in right shoulder; M25.512 Pain in left shoulder; M79.7 Fibromyalgia
CPT/HCPCS: 36415; 80053; 82550; 85025; 85651; 86140; 93005; 93010; 96374; 96375; 99284-25

== ENCOUNTER 2022-09-06 16:06 | Emergency (ER) | payer OTHER ==
[2022-09-06 16:47] VITALS: BMI 38.5
[2022-09-06] MEDS ORDERED: ACETAMINOPHEN 1000 MG/100 ML BAG IVPB ONE (17:15)
[2022-09-06] MEDS ORDERED: methylPREDNISolone NA SUCC 125 MG/2 ML VIAL IVPUSH ONE (17:17)
[2022-09-06] MEDS ORDERED: ACETAMINOPHEN INJECTION 100 ML IVPB ONE (17:32)
[2022-09-06] MEDS ORDERED: methylPREDNISolone NA SUCC 125 MG/2 ML VIAL ONE (17:32)
[2022-09-06 18:02] LABS: BASO % 0.7 % (0-2.0); EOS % 3.2 % (0-4.5); HEMATOCRIT 35.7 % (32.4-45.2); HEMOGLOBIN 11.7 GM/dL (10.7-15.3); LYMPH % 29.4 % (8-40); MCH 28.3 pg (25.7-33.7); MCHC 32.9 g/dl (32.0-36.0); MEAN CELL VOLUME 85.9 fl (80-96); MONO % 8.5 % (3.8-10.2); NEUT % 58.2 % (42.8-82.8); PLATELET COUNT 251 10^3/uL (134-434); RBC 4.15 M/mm3 (3.60-5.2); RDW 15.9 % (11.6-15.6); WHITE BLOOD COUNT 12.3 K/mm3 (4.0-10.0)
[2022-09-06 18:19] LABS: POTASSIUM 4.2 mmol/L (3.5-5.1)
[2022-09-06 18:21] LABS: CALCIUM 8.5 mg/dL (8.5-10.1)
[2022-09-06 18:22] LABS: ALBUMIN 2.9 g/dl (3.4-5.0); BLOOD UREA NITROGEN 26.3 mg/dL (7-18)
[2022-09-06 18:25] LABS: CREATININE 1.4 mg/dL (0.55-1.3)
[2022-09-06 18:27] LABS: BILIRUBIN,TOTAL 0.3 mg/dL (0.2-1); TOT PROT 6.8 g/dl (6.4-8.2)
[2022-09-06 19:49] LABS: ERYTHROCYTE SEDIMENTATION RATE 51 mm/hr (0-30)
[2022-09-06 19:54] VITALS: BP 159/69; PULSE 78; RESP 18; TEMP 98
[2022-09-06] MEDS ORDERED: SODIUM CHLORIDE 0.9% 500 ML INFUS.BAG IV ONE (21:49)
== END 2022-09-07 00:01 | disposition home or self-care (01) ==
LOC: JER 16:06
PROC: 3E033NZ Introduction of Analgesics, Hypnotics, Sedatives into Peripheral Vein, Percutaneous Approach (ICD-10-PCS; principal; 2022-09-06)
PROC: 3E033GC Introduction of Other Therapeutic Substance into Peripheral Vein, Percutaneous Approach (ICD-10-PCS; 2022-09-06)
DX: M79.10 Myalgia, unspecified site (principal); M25.511 Pain in right shoulder; Z20.822 Contact with and (suspected) exposure to COVID-19
CPT/HCPCS: 0241U-QW; 36415; 71045-TC-FY; 71275-TC; 80053; 83735; 85025; 85651; 86140; 99285-25; Q9967

== ENCOUNTER 2022-09-20 11:48 | Observation (INO) | payer OTHER ==
[2022-09-20] MEDS ORDERED: SODIUM CHLORIDE 0.9% 500 ML INFUS.BAG IV ONE (13:06)
[2022-09-20] MEDS ORDERED: ACETAMINOPHEN 1000 MG/100 ML BAG IVPB ONE (13:06)
[2022-09-20 14:19] LABS: BASO % 0.7 % (0-2.0); EOS % 3.2 % (0-4.5); HEMATOCRIT 37.4 % (32.4-45.2); HEMOGLOBIN 12.3 GM/dL (10.7-15.3); LYMPH % 21.1 % (8-40); MCH 28.3 pg (25.7-33.7); MCHC 32.8 g/dl (32.0-36.0); MEAN CELL VOLUME 86.3 fl (80-96); MEAN PLT VOLUME 9.9 fl (7.5-11.1); PLATELET COUNT 238 10^3/uL (134-434); RBC 4.33 M/mm3 (3.60-5.2); RDW 16.4 % (11.6-15.6); WHITE BLOOD COUNT 11.6 K/mm3 (4.0-10.0)
[2022-09-20 14:22] LABS: POTASSIUM 4.3 mmol/L (3.5-5.1)
[2022-09-20 14:25] LABS: ALBUMIN 3.4 g/dl (3.4-5.0); CALCIUM 8.9 mg/dL (8.5-10.1)
[2022-09-20 14:26] LABS: BLOOD UREA NITROGEN 19.9 mg/dL (7-18); MAGNESIUM 2.2 mg/dL (1.8-2.4)
[2022-09-20 14:28] LABS: CREATININE 1.3 mg/dL (0.55-1.3)
[2022-09-20 14:30] LABS: BILIRUBIN,TOTAL 0.7 mg/dL (0.2-1); TOT PROT 7.5 g/dl (6.4-8.2)
[2022-09-20 14:34] LABS: N-TERMINAL BNP 122.2 pg/ml (5-125)
[2022-09-20 14:40] LABS: EPI CELLS >36 /uL (0-25.1); HYALINE CASTS 0 /uL (0-3.1); PH,URINE 6.5 (5.0-8.0); URINE APPEARANCE CLEAR; URINE BACTERIA 1084 /uL (0-1359); URINE BILIRUBIN NEGATIVE (NEGATIVE); URINE COLOR YELLOW; URINE GLUCOSE (UA) NEGATIVE (NEGATIVE); URINE KETONE NEGATIVE (NEGATIVE); URINE LEUK ESTERASE 1+ (NEGATIVE); URINE NITRITE NEGATIVE (NEGATIVE); URINE PROTEIN 1+ (NEGATIVE); URINE RBC 9 /uL (0-23.9); URINE UROBILINOGEN 0.2 mg/dL (0.2-1.0); URINE WBC 31 /uL (0-25.8)
[2022-09-20] MEDS ORDERED: ACETAMINOPHEN INJECTION 100 ML IVPB ONE (14:40)
[2022-09-20 14:57] LABS: ERYTHROCYTE SEDIMENTATION RATE 92 mm/hr (0-30)
[2022-09-20 15:16] LABS: PROTHROMBIN TIME (PATIENT) 11.6 SEC (9.7-13.0)
[2022-09-20 15:19] LABS: ACTIVATED PTT 27.6 SECONDS (25.2-36.5)
[2022-09-20 15:26] LABS: POTASSIUM 3.9 mmol/L (3.5-5.1)
[2022-09-20 15:29] LABS: BLOOD UREA NITROGEN 19.9 mg/dL (7-18)
[2022-09-20] MEDS ORDERED: methylPREDNISolone NA SUCC 1000 MG/8 ML VIAL IVPB ONE (15:32)
[2022-09-20 15:33] LABS: CREATININE 1.3 mg/dL (0.55-1.3)
[2022-09-20] MEDS ORDERED: methylPREDNISolone NA SUCC 1000 MG/8 ML VIAL ONE (15:52)
[2022-09-20] MEDS ORDERED: ALBUTEROL SO4 HFA INHALER IH PRN (17:18)
[2022-09-20] MEDS ORDERED: ACETAMINOPHEN 1000 MG/100 ML BAG IVPB PRN (17:21)
[2022-09-20] MEDS ORDERED: methylPREDNISolone NA SUCC 40 MG/1 ML VIAL ONE (18:01)
[2022-09-20] MEDS: methylPREDNISolone NA SUCC 125 MG/2 ML VIAL IVPB SCH (18:04)
[2022-09-20 18:58] VITALS: BMI 39.1
[2022-09-20] MEDS: hydrALAZINE HCL 10 MG TABLET PO SCH (23:18)
[2022-09-20] MEDS: traZODone HCL 50 MG TABLET (FP) PO SCH (23:19)
[2022-09-20] MEDS: PREGABALIN 100 MG CAPSULE PO SCH (23:19)
[2022-09-20] MEDS: ATORVASTATIN CA 40 MG TABLET (FP) PO SCH (23:20)
[2022-09-21] MEDS: methylPREDNISolone NA SUCC 125 MG/2 ML VIAL IVPB SCH ×3 (02:27→17:23)
[2022-09-21 05:35] VITALS: RESP 18
[2022-09-21] MEDS: PREGABALIN 100 MG CAPSULE PO SCH ×3 (05:39→23:09)
[2022-09-21] MEDS: LEVOTHYROXINE 100 MCG, LEVOTHYROXINE 88 MCG PO SCH (07:00)
[2022-09-21] MEDS ORDERED: LEVOTHYROXINE NA 100 MCG TABLET (FP) PO SCH (07:00)
[2022-09-21 09:04] LABS: BASO % 0.2 % (0-2.0); HEMATOCRIT 38.7 % (32.4-45.2); HEMOGLOBIN 12.5 GM/dL (10.7-15.3); LYMPH % 13.6 % (8-40); MCH 28.3 pg (25.7-33.7); MCHC 32.3 g/dl (32.0-36.0); MEAN CELL VOLUME 87.7 fl (80-96); MEAN PLT VOLUME 9.9 fl (7.5-11.1); MONO % 1.9 % (3.8-10.2); NEUT % 84.3 % (42.8-82.8); PLATELET COUNT 278 10^3/uL (134-434); RBC 4.41 M/mm3 (3.60-5.2); RDW 16.3 % (11.6-15.6); WHITE BLOOD COUNT 8.6 K/mm3 (4.0-10.0)
[2022-09-21] MEDS: LOSARTAN POTASSIUM 50 MG TABLET PO SCH (09:09)
[2022-09-21] MEDS: ESCITALOPRAM OXALATE 10 MG TABLET PO SCH (09:09)
[2022-09-21] MEDS: hydrALAZINE HCL 10 MG TABLET PO SCH ×2 (09:09→23:08)
[2022-09-21] MEDS: amLODIPine BESYLATE 10 MG TABLET (FP) PO SCH (09:09)
[2022-09-21] MEDS: PANTOPRAZOLE 40 MG TABLET PO SCH (09:09)
[2022-09-21] MEDS: CLOPIDOGREL BISULFATE 75 MG TABLET (FP) PO SCH (09:09)
[2022-09-21 09:30] LABS: POTASSIUM 4.4 mmol/L (3.5-5.1)
[2022-09-21 09:35] LABS: BLOOD UREA NITROGEN 29.3 mg/dL (7-18); CALCIUM 8.6 mg/dL (8.5-10.1)
[2022-09-21 09:37] LABS: CREATININE 1.4 mg/dL (0.55-1.3)
[2022-09-21 09:39] LABS: TOT PROT 6.9 g/dl (6.4-8.2)
[2022-09-21 09:40] LABS: BILIRUBIN,TOTAL 0.6 mg/dL (0.2-1)
[2022-09-21 10:00] LABS: ERYTHROCYTE SEDIMENTATION RATE 50 mm/hr (0-30)
[2022-09-21] MEDS: CEFTRIAXONE 1 GM in DEXTROSE 5%-WATER - 50 ML IVPB SCH (10:21)
[2022-09-21] MEDS: KETOROLAC TROMETHAMINE 30 MG/1 ML VIAL IVPUSH PRN (20:07)
[2022-09-21] MEDS: ATORVASTATIN CA 40 MG TABLET (FP) PO SCH (23:09)
[2022-09-21] MEDS: traZODone HCL 50 MG TABLET (FP) PO SCH (23:09)
[2022-09-22] MEDS: methylPREDNISolone NA SUCC 125 MG/2 ML VIAL IVPB SCH ×3 (02:19→17:51)
[2022-09-22] MEDS: LEVOTHYROXINE 100 MCG, LEVOTHYROXINE 88 MCG PO SCH (06:51)
[2022-09-22] MEDS: PREGABALIN 100 MG CAPSULE PO SCH ×3 (06:51→22:20)
[2022-09-22] MEDS: CEFTRIAXONE 1 GM in DEXTROSE 5%-WATER - 50 ML IVPB SCH (10:05)
[2022-09-22] MEDS: ESCITALOPRAM OXALATE 10 MG TABLET PO SCH (10:05)
[2022-09-22] MEDS: CLOPIDOGREL BISULFATE 75 MG TABLET (FP) PO SCH (10:05)
[2022-09-22] MEDS: PANTOPRAZOLE 40 MG TABLET PO SCH (10:06)
[2022-09-22] MEDS: LOSARTAN POTASSIUM 50 MG TABLET PO SCH ×2 (10:24→10:49)
[2022-09-22] MEDS: amLODIPine BESYLATE 10 MG TABLET (FP) PO SCH (10:24)
[2022-09-22] MEDS: hydrALAZINE HCL 10 MG TABLET PO SCH ×3 (10:24→22:36)
[2022-09-22] MEDS ORDERED: INSULIN (NOVOLOG) ASPART 100 UNITS/ML 10ML VIAL ONE (11:25)
[2022-09-22] MEDS: INSULIN SLIDING SCALE (NOVOLOG) 1 VIAL SQ SCH ×3 (11:27→22:35)
[2022-09-22 21:07] LABS: CYCLIC CITRULLINE PEPTIDE AB 45 units (0-19)
[2022-09-22] MEDS: KETOROLAC TROMETHAMINE 30 MG/1 ML VIAL IVPUSH PRN (22:20)
[2022-09-22] MEDS: traZODone HCL 50 MG TABLET (FP) PO SCH (22:20)
[2022-09-22] MEDS: ATORVASTATIN CA 40 MG TABLET (FP) PO SCH (22:20)
[2022-09-23] MEDS: methylPREDNISolone NA SUCC 125 MG/2 ML VIAL IVPB SCH ×2 (02:13→09:57)
[2022-09-23] MEDS: INSULIN SLIDING SCALE (NOVOLOG) 1 VIAL SQ SCH ×2 (06:40→13:01)
[2022-09-23] MEDS: PREGABALIN 100 MG CAPSULE PO SCH ×2 (06:41→13:29)
[2022-09-23] MEDS: LEVOTHYROXINE 100 MCG, LEVOTHYROXINE 88 MCG PO SCH (06:41)
[2022-09-23] MEDS: hydrALAZINE HCL 10 MG TABLET PO SCH (09:59)
[2022-09-23] MEDS: CLOPIDOGREL BISULFATE 75 MG TABLET (FP) PO SCH (09:59)
[2022-09-23] MEDS: LOSARTAN POTASSIUM 50 MG TABLET PO SCH (09:59)
[2022-09-23] MEDS: PANTOPRAZOLE 40 MG TABLET PO SCH (09:59)
[2022-09-23] MEDS: ESCITALOPRAM OXALATE 10 MG TABLET PO SCH (09:59)
[2022-09-23] MEDS: CEFTRIAXONE 1 GM in DEXTROSE 5%-WATER - 50 ML IVPB SCH (10:01)
[2022-09-23 14:24] VITALS: BP 110/65; PULSE 55; TEMP 98.2
== END 2022-09-23 14:54 | disposition home or self-care (01) ==
LOC: JER 11:48 → JERBED 15:18 → J6S 19:31
PROVIDERS: ADMIT Internal Medicine; ATTEND Internal Medicine
PROC: 3E033NZ Introduction of Analgesics, Hypnotics, Sedatives into Peripheral Vein, Percutaneous Approach (ICD-10-PCS; principal; 2022-09-20)
PROC: 3E03329 Introduction of Other Anti-infective into Peripheral Vein, Percutaneous Approach (ICD-10-PCS; 2022-09-20)
PROC: 3E033GC Introduction of Other Therapeutic Substance into Peripheral Vein, Percutaneous Approach (ICD-10-PCS; 2022-09-20)
DX: M32.9 Systemic lupus erythematosus, unspecified (principal); E78.5 Hyperlipidemia, unspecified; R73.03 Prediabetes; I13.10 Hypertensive heart and chronic kidney disease without heart failure, with stage 1 through stage 4 chronic kidney disease, or unspecified chronic kidney disease; N18.9 Chronic kidney disease, unspecified; G89.29 Other chronic pain; Z88.8 Allergy status to other drugs, medicaments and biological substances; E03.9 Hypothyroidism, unspecified; Z87.891 Personal history of nicotine dependence
CPT/HCPCS: 36415; 71046-TC-FY; 80048; 80053; 81003; 82962; 83735; 83880; 84443; 85025; 85610; 85651; 85730; 86038; 86140; 86200; 86225; 86431; 87086; 93005; 93010; 96365; 96375; 96376; 97116-GP; 97162-GP; 99285-25; G0378